=== PATIENT | female | born 1960 | race Caucasian/White ===

== ENCOUNTER 2016-08-24 01:59 | Inpatient (IN) | payer OTHER ==
[2016-08-24 04:00] LABS: Basophils # (A) 0.2 k/uL (0-0.2); Basophils % (A) 2 %; CH 32.7; CHCM 33.3; Eosinophils # (A) 0.2 k/uL (0-0.7); Eosinophils % (A) 2 %; HCT 41.2 % (34.0-46.0); HDW 2.38; HGB 13.3 gm/dL (11.4-16.0); Luc # (Auto) 0.35; Luc % (Auto) 4; Lymphocytes # (A) 2.8 k/uL (1.0-4.8); Lymphocytes % (A) 30 %; MCH 31.8 pg (25.0-35.0); MCHC 32.2 g/dL (31.0-37.0); MCV 98.8 fL (80.0-100.0); Mean Platelet Volume 6.7; Monocytes # (A) 0.7 k/uL (0-1.0); Monocytes % (A) 8 %; Neutrophils # (A) 5.2 k/uL (1.3-7.7); Neutrophils % (A) 55 %; RBC 4.17 m/uL (3.80-5.40); RDW 13.4 % (11.5-15.5); WBC 9.4 k/uL (3.8-10.6); WBC (Perox) 9.25
[2016-08-24 04:09] LABS: ALT 29 U/L (9-52); AST 27 U/L (14-36); Alcohol <10 mg/dL; Alkaline Phosphatase 91 U/L (38-126); Anion Gap 10 mmol/L; Blood Urea Nitrogen 15 mg/dL (7-17); Calcium 10.6 mg/dL (8.4-10.2); Carbon Dioxide 27 mmol/L (22-30); Chloride 102 mmol/L (98-107); Glucose 123 mg/dL (74-99); Non-African American GFR(MDRD) >60 (>60 ml/min/1.73 sqM); Potassium 4.7 mmol/L (3.5-5.1); Sodium 139 mmol/L (137-145); Total Bilirubin 0.4 mg/dL (0.2-1.3); Total Protein 7.3 g/dL (6.3-8.2)
--- NOTE | 2016-08-24 04:47 | ED ---
Psych HPI - General Chief Complaint: Psychiatric Symptoms Stated Complaint: Mental Health Time Seen by Provider: 08/24/16 02:14 Source: patient Mode of arrival: ambulatory - History of Present Illness Initial Comments: This patient is a 56-year-old woman brought to be evaluated for suspected delusional thoughts. History is both from the family and from the patient. Patient's family reports that she had just gotten out of the psychiatric unit at Hospital on 08/20. Since that time the patient has reportedly been sleeping very little, been pulling conversations with God, and also per family displaying delusional thought content. The patient is denying suicidal and homicidal ideation. She is denying depression. She is under the impression that she is here with her who needs to be seen. Complaint: other -: days(s) Associated Psychiatric Symptoms: racing thoughts, delusions History of same: Yes Quality: getting worse Improves With: none Worsens With: none Associated Symptoms: denies other symptoms - Related Data Home Medications Medication Instructions Recorded Confirmed Disulfiram 250 mg PO HS 08/24/16 08/30/16 Ibuprofen [Motrin] 800 mg PO TID 08/24/16 08/30/16 Loratadine-Pseudoeph 10-240 mg 1 tab PO DAILY 08/24/16 08/30/16 [Claritin-D 24 Hour] Thiamine [Vitamin B-1] 100 mg PO DAILY 08/24/16 08/30/16 Previous Rx's Medication Instructions Recorded Divalproex ER [Depakote ER] 1,000 mg PO HS 30 Days 09/03/16 Nicotine 14Mg/24Hr Patch [Habitrol] 1 patch TRANSDERM DAILY 14 Days 09/03/16 QUEtiapine [SEROquel] 300 mg PO HS 30 Days 09/03/16 Allergies Allergy/AdvReac Type Severity Reaction Status Date / Time No Known Allergies Allergy Verified 08/30/16 02:43 Review of Systems ROS Statement: Those systems with pertinent positive or pertinent negative responses have been documented in the HPI. ROS Other: All systems not noted in ROS Statement are negative. Constitutional: Denies: fever, weakness Eyes: Denies: vision change Respiratory: Denies: cough, dyspnea Cardiovascular: Denies: chest pain Gastrointestinal: Denies: abdominal pain, vomiting Genitourinary: Reports: frequency. Denies: dysuria Musculoskeletal: Denies: back pain Skin: Denies: rash Neurological: Denies: headache, weakness Psychiatric: Denies: depression, auditory hallucinations, homicidal thoughts, suicidal thoughts Past Medical History Additional Past Medical History / Comment(s): Former Alcohol Dependence History of Any Multi-Drug Resistant Organisms: None Reported Past Surgical History: Section Past Psychological History: No Psychological Hx Reported Smoking Status: Former smoker Past Alcohol Use History: None Reported Past Drug Use History: None Reported - Past Family History Mother Additional Family Medical History / Comment(s): Mother is alive at age 91 with no major medical problems. Father Additional Family Medical History / Comment(s): Father in his 70s from non- A non-B hepatitis Sister(s) Additional Family Medical History / Comment(s): She has one sister with no major medical problems. Patient does not have any brothers. Daughter(s) Additional Family Medical History / Comment(s): Patient has one daughter with no major medical problems. Patient does not have any sons. General Exam Limitations: no limitations General appearance: alert, in no apparent distress Head exam: Present: atraumatic, normocephalic Eye exam: Present: normal appearance. Absent: scleral icterus, conjunctival injection Neck exam: Present: normal inspection, full ROM Respiratory exam: Present: normal lung sounds bilaterally. Absent: respiratory distress, wheezes, rales, rhonchi, stridor Cardiovascular Exam: Present: regular rate, normal rhythm, normal heart sounds. Absent: systolic murmur, diastolic murmur, rubs, gallop GI/Abdominal exam: Present: soft. Absent: distended, tenderness, guarding, rebound, mass Extremities exam: Present: normal inspection, normal capillary refill. Absent: pedal edema, calf tenderness Back exam: Absent: CVA tenderness (R), CVA tenderness (L) Neurological exam: Present: alert, CN II-XII intact. Absent: motor sensory deficit Psychiatric exam: Present: manic, other (The patient does display tangential thought processes, pressured speech, and is displaying some delusional but content as well.). Absent: depressed, agitated, anxious, homicidal ideation, suicidal ideation Skin exam: Present: warm, dry, intact, normal color. Absent: rash Course Vital Signs 08/24/16 08/24/16 02:03 06:47 Temperature 98.0 F 97.8 F Pulse Rate 80 78 Respiratory 18 16 Rate Blood Pressure 180/96 136/66 O2 Sat by Pulse 98 97 Oximetry Procedures - Restraint - Face to Face Restraint Occurrence 1 Patient's Immediate Situation: Endangers others' safety, Endangers staff safety Patient's Reaction to the Intervention: Anxious, Suspicious Patient's Medical & Behavioral Condition: Alert, Agitated, Manic, Flight of ideas, Bizarre behavior Need to Continue or Terminate Restraint or Seclusion: Continue Face to Face Eval of Restraint Date: 08/24/16 Face to Face Eval of Restraint Time: 05:45 Medical Decision Making - Lab Data Result diagrams: 08/24/16 03:34 08/24/16 03:34 Lab Results 08/24/16 08/24/16 08/24/16 Range/Units 02:44 03:34 03:34 WBC 9.4 (3.8-10.6) k/uL RBC 4.17 (3.80-5.40) m/uL Hgb 13.3 (11.4-16.0) gm/dL Hct 41.2 (34.0-46.0) % MCV 98.8 (80.0-100.0) fL MCH 31.8 (25.0-35.0) pg MCHC 32.2 (31.0-37.0) g/dL RDW 13.4 (11.5-15.5) % Plt Count 422 (150-450) k/uL Neutrophils % 55 % Lymphocytes % 30 % Monocytes % 8 % Eosinophils % 2 % Basophils % 2 % Neutrophils # 5.2 (1.3-7.7) k/uL Lymphocytes # 2.8 (1.0-4.8) k/uL Monocytes # 0.7 (0-1.0) k/uL Eosinophils # 0.2 (0-0.7) k/uL Basophils # 0.2 (0-0.2) k/uL Sodium 139 (137-145) mmol/L Potassium 4.7 (3.5-5.1) mmol/L Chloride 102 (98-107) mmol/L Carbon Dioxide 27 (22-30) mmol/L Anion Gap 10 mmol/L BUN 15 (7-17) mg/dL Creatinine 0.70 (0.52-1.04) mg/dL Est GFR (MDRD) Af Amer >60 (>60 ml/min/1.73 sqM) Est GFR (MDRD) Non-Af >60 (>60 ml/min/1.73 sqM) Glucose 123 H (74-99) mg/dL Calcium 10.6 H (8.4-10.2) mg/dL Total Bilirubin 0.4 (0.2-1.3) mg/dL AST 27 (14-36) U/L ALT 29 (9-52) U/L Alkaline Phosphatase 91 (38-126) U/L Total Protein 7.3 (6.3-8.2) g/dL Albumin 4.2 (3.5-5.0) g/dL TSH 3.300 (0.465-4.680) mIU/L Urine Opiates Screen Not Detected (NotDetected) Ur Oxycodone Screen Not Detected (NotDetected) Urine Methadone Screen Not Detected (NotDetected) Ur Propoxyphene Screen Not Detected (NotDetected) Ur Barbiturates Screen Not Detected (NotDetected) U Tricyclic Antidepress Not Detected (NotDetected) Ur Phencyclidine Scrn Not Detected (NotDetected) Ur Amphetamines Screen Not Detected (NotDetected) U Methamphetamines Scrn Not Detected (NotDetected) U Benzodiazepines Scrn Not Detected (NotDetected) Urine Cocaine Screen Not Detected (NotDetected) U Marijuana (THC) Screen Not Detected (NotDetected) Serum Alcohol <10 mg/dL Disposition Clinical Impression: Psychosis Disposition: HOME SELF-CARE Condition: Stable
[2016-08-24] MEDS ORDERED: LORazepam 2 MG/ML SYRINGE IM STA (05:34)
[2016-08-24] MEDS ORDERED: HALOPERIDOL LACTATE 5 MG/ML 1 ML VIAL IM STA (05:34)
[2016-08-24] MEDS ORDERED: MAG HYDROX/AL HYDROX/SIMETH 30 ML CUP PO PRN (06:48)
[2016-08-24] MEDS ORDERED: ZIPRASIDONE 20 MG VIAL IM PRN (06:48)
[2016-08-24] MEDS: THIAMINE 100 MG TAB PO SCH (09:47)
[2016-08-24] MEDS: NICOTINE 14MG/24HR PATCH TRANSDERM SCH (09:47)
[2016-08-24] MEDS ORDERED: LORazepam 2 MG/ML SYRINGE IM PRN (12:25)
--- NOTE | 2016-08-24 15:35 | P.CONS ---
History of Present Illness - Reason for Consult Consult date: 08/24/16 Medical management - History of Present Illness This is a 56-year-old female. Her primary care physician is Dr. Ellis in [place]. Patient is seen in her room and she is very groggy after receiving Haldol and Ativan. Patient relates that the place or sent to get her for referral. Patient denies having any hallucinations. She states she was recently at the psychiatric unit at [facility] for 6 days and was discharged on Tuesday. It is unclear if she has been taking her medications. She denies any suicidal ideation. She states her has been under a lot of stress and pushing her buttons. Patient has been admitted to the mental health unit. TSH 3.3. Urine drug screen was negative. Review of Systems All systems: negative Constitutional: Denies chills, Denies fever Eyes: denies blurred vision, denies pain Ears, nose, mouth and throat: Denies headache, Denies sore throat Cardiovascular: Denies chest pain, Denies shortness of breath Respiratory: Denies cough Gastrointestinal: Denies abdominal pain, Denies diarrhea, Denies nausea, Denies vomiting Genitourinary: Denies dysuria, Denies hematuria Musculoskeletal: Denies myalgias Integumentary: Denies pruritus, Denies rash Neurological: Denies numbness, Denies weakness Psychiatric: Reports hallucinations, Denies anxiety, Denies depression, Denies suicidal ideation Endocrine: Denies fatigue, Denies weight change Past Medical History Additional Past Medical History / Comment(s): Former Alcohol Dependence History of Any Multi-Drug Resistant Organisms: None Reported Past Surgical History: Section Past Psychological History: No Psychological Hx Reported Smoking Status: Current every day smoker Past Alcohol Use History: None Reported Additional Past Alcohol Use History / Comment(s): She apparently has history of alcohol abuse but has been sober for 14 months. She lives at home with her . Past Drug Use History: None Reported - Past Family History Mother Additional Family Medical History / Comment(s): Mother is alive at age 91 with no major medical problems. Father Additional Family Medical History / Comment(s): Father in his 70s from non- A non-B hepatitis Sister(s) Additional Family Medical History / Comment(s): She has one sister with no major medical problems. Patient does not have any brothers. Daughter(s) Additional Family Medical History / Comment(s): Patient has one daughter with no major medical problems. Patient does not have any sons. Medications and Allergies Home Medications Medication Instructions Recorded Confirmed Type Disulfiram 250 mg PO HS 08/24/16 08/24/16 History Ibuprofen [Motrin] 800 mg PO TID 08/24/16 08/24/16 History LORazepam [Lorazepam] 1 mg PO BID PRN 08/24/16 08/24/16 History Loratadine-Pseudoeph 10-240 mg 1 tab PO DAILY 08/24/16 08/24/16 History [Claritin-D 24 Hr] Nitrofurantoin Monohyd/M-Cryst 100 mg PO Q12HR 08/24/16 08/24/16 History [Macrobid] Thiamine [Vitamin B-1] 100 mg PO DAILY 08/24/16 08/24/16 History Venlafaxine HCl [Venlafaxine HCl] 75 mg PO BID 08/24/16 08/24/16 History Allergies Allergy/AdvReac Type Severity Reaction Status Date / Time No Known Allergies Allergy Verified 08/24/16 08:52 Physical Exam Vitals: Vital Signs Temp Pulse Pulse Resp BP BP Pulse Ox 08/24/16 08:21 98.1 F 87 20 180/86 08/24/16 06:47 97.8 F 78 16 136/66 97 Gen: This is a 86-year-old female. She is cooperative. She appears to be in no acute distress. She is quite groggy but awakens easily to verbal stimuli. She does have difficulty focusing and staying on subject. HEENT: Head is atraumatic, normocephalic. Pupils equal, round. Sclerae is anicteric. NECK: Supple. No JVD. No lymphadenopathy. No thyromegaly. LUNGS: Clear to auscultation. No wheezes or rhonchi. No intercostal retractions. HEART: Regular rate and rhythm. No murmur. ABDOMEN: Soft. Bowel sounds are present. No masses. No tenderness. EXTREMITIES: No pedal edema. No calf tenderness. NEUROLOGICAL: Patient is awake, alert and oriented x3. Cranial nerves 2 through 12 are grossly intact. Results CBC & Chem 7: 08/24/16 03:34 08/24/16 03:34 Assessment and Plan Plan: 1. Acute psychosis with recent admission to [facility]. Patient admitted to the mental health unit. Continue current plan of care. 2. Recent diagnosis of urinary tract infection. Continue Macrobid. 3. Tobacco use and dependence. Continue nicotine patch. 4. History of alcohol abuse. Continue Ativan, vitamin B. Impression and plan of care have been directed as dictated by the signing physician. Loren Abarca nurse practitioner acting as scribe for signing physician. Time with Patient: Greater than 30
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
[2016-08-24] MEDS: DISULFIRAM 250 MG TAB PO SCH (22:19)
[2016-08-24] MEDS: NITROFURANTOIN MONOHYD/M-CRYST 100 MG CAP PO SCH (22:19)
[2016-08-24] MEDS: QUEtiapine 100 MG TAB PO SCH (22:19)
[2016-08-25] MEDS: NITROFURANTOIN MONOHYD/M-CRYST 100 MG CAP PO SCH ×2 (08:12→22:49)
[2016-08-25] MEDS: THIAMINE 100 MG TAB PO SCH (08:13)
[2016-08-25] MEDS: NICOTINE 14MG/24HR PATCH TRANSDERM SCH (08:14)
--- NOTE | 2016-08-25 15:46 | P.PN ---
Progress Note - Text SUBJECTIVE: I reviewed the medical record, interviewed Noemi and discussed her treatment and treatment plan during team meeting. She requested to be discharged. She stated that she has plans for the hol and does not wish to be in the hospital. She appeared to understand my explanation that she presented to the hospital involuntary and we are waiting her probate hearing. In the afternoon she approached me to inform me that she had deferred. I attempted to engage in discussion of treatment for her mood disorder. She declined my recommendation for lithium or Depakote. She also discoloring recommendation for second-generation antipsychotics except for "a little bit" of Seroquel. I told her that a "little bit" of Seroquel is not adequate treated treatment for her condition. OBJECTIVE: She presented as a casually groomed 56-year-old female who was pleasant on approach. She made eye contact and appeared to attend to interview. She had a distressed facial expression. She was restless but showed no abnormal involuntary movements. She was hyperverbal. Her affect was elevated and appropriate. She denied suicidal ideation or wishes. She denied feelings of hopelessness or helplessness. She did not express phobias, ideas reference or paranoid ideation. She ruminated about hospitalization and her plans at home. Her thinking was concrete she demonstrated flight of ideas, tangentiality and circumstantiality. She denied hallucinations and did not appear to be responding to internal stimuli. ASSESSMENT: She continued to show signs and symptoms of adriane. She is resistant to treatment with mood stabilizers. PLAN: Continue with involuntary hospitalization. If she had deferred and will not take a therapeutic dose of a mood stabilizer then we should proceed with involuntary hospitalization. Begin a mood stabilizer such as lithium, Depakote or second-generation antipsychotic. She may require treatment with a long acting injectable second-generation antipsychotic. Encourage participation in therapeutic groups and activities. Evaluate clinical status and response to treatment on a daily basis.
[2016-08-25] MEDS: DISULFIRAM 250 MG TAB PO SCH (22:49)
[2016-08-25] MEDS: QUEtiapine 100 MG TAB PO SCH (22:49)
[2016-08-26] MEDS: THIAMINE 100 MG TAB PO SCH (08:47)
[2016-08-26] MEDS: NITROFURANTOIN MONOHYD/M-CRYST 100 MG CAP PO SCH ×2 (08:47→22:18)
[2016-08-26] MEDS: NICOTINE 14MG/24HR PATCH TRANSDERM SCH (08:47)
--- NOTE | 2016-08-26 12:47 | P.PN ---
Progress Note - Text SUBJECTIVE: I reviewed the medical record, interviewed Noemi and discussed her treatment and treatment plan during team meeting. She insisted that we meet early this morning. She stated that she has made all her arrangements necessary for her discharge including scheduling an appointment at [facility] today at 3 PM. She deferred her involuntary hearing yesterday. She refused treatment with a mood stabilizer such as lithium or Depakote. She refused to consider a second generation antipsychotic other than a "low dose" of Seroquel. She maintained that she "will" leave the hospital today. When I told her she would not leave the hospital she demanded to be assigned to another psychiatrist. She accused me of violating her rights and not cooperating with her. OBJECTIVE: She presented as a casually groomed 56-year-old female who was irritable and demanding. She made eye contact and appeared to attend to interview. She became increasingly irritable when I declined her request to be discharged today. She left my office and returned with a mapp2link folder filled with various items including [employer] well cards, magazines, probate papers and group activity material. She will on the mapp2link folder that I had refused to request to be discharged. She left my office a third time leaving behind much of her material from the folder and stated that she will talk to whomever she needs to be assigned another psychiatrist because we did not "click". She was restless but showed no abnormal involuntary movements. She was hyperverbal and had pressured speech. Her affect was irritable. She denied suicidal ideation or wishes. She denied feelings of hopelessness or helplessness. She did not express phobias, ideas reference or paranoid ideation. Her thinking was concrete she demonstrated flight of ideas, tangentiality and circumstantiality. She denied hallucinations and did not appear to be responding to internal stimuli. During group therapy this morning she was attention seeking, intrusive, disorganized, restless and hyperverbal. ASSESSMENT: She continued to show signs and symptoms of adriane. She is resistant to treatment with mood stabilizers. She is not cooperating with recommended psychiatric treatment. PLAN: Continue hospitalization due to the severity of the panic symptoms. Increase Seroquel to 200 mg at bedtime tonight then 300 mg at bedtime tomorrow night. If she will not take the increased dose of Seroquel or an alternate effective mood stabilizer then we will request a demand for hearing. I provided her with patient information about lithium, Depakote, Abilify and Invega. Encourage participation in therapeutic groups and activities. Evaluate clinical status and response to treatment on a daily basis.
[2016-08-26] MEDS ORDERED: QUEtiapine 200 MG TAB PO SCH (21:00)
[2016-08-26] MEDS: DISULFIRAM 250 MG TAB PO SCH (22:18)
[2016-08-26] MEDS: ACETAMINOPHEN TAB 325 MG TAB PO PRN (22:23)
[2016-08-27] MEDS: NICOTINE 14MG/24HR PATCH TRANSDERM SCH (09:04)
[2016-08-27] MEDS: THIAMINE 100 MG TAB PO SCH (09:04)
--- NOTE | 2016-08-27 12:31 | P.PN ---
Progress Note - Text SUBJECTIVE: I reviewed the medical record, interviewed Noemi and discussed her treatment and treatment plan during team meeting. She complained that the current dose of Seroquel (200 mg) is "too strong" and she wishes to return to the lower dose. She suggested treatment with Effexor or Wellbutrin. I explained that our recommendation is to request a demand for hearing because she has not complied with recommended treatment. I answered her questions about the demand. OBJECTIVE: She presented as a casually groomed 56-year-old female who was pleasant on approach. She made eye contact and appeared to attend to interview. She was hyperverbal and her speech was pressured. Her affect was labile. She denied suicidal ideation or wishes. She denied feelings of hopelessness or helplessness. She did not express phobias, ideas reference or paranoid ideation. Her thinking was concrete she demonstrated flight of ideas , tangentiality and circumstantiality. She denied hallucinations and did not appear to be responding to internal stimuli. The therapist described her as disorganized, hyperverbal, restless and poorly focused during group therapy. ASSESSMENT: She continued to show signs and symptoms of adriane. She is resistant to treatment with mood stabilizers. She is not cooperating with recommended psychiatric treatment. PLAN: Continue hospitalization due to the severity of the panic symptoms. Increase Seroquel to 300 mg at bedtime. Proceed with demand for hearing. Antidepressant medications are not appropriate. Encourage participation in therapeutic groups and activities. Evaluate clinical status and response to treatment on a daily basis.
[2016-08-27] MEDS: ACETAMINOPHEN TAB 325 MG TAB PO PRN (15:32)
[2016-08-27] MEDS: QUEtiapine 100 MG TAB PO SCH (22:28)
[2016-08-27] MEDS: DISULFIRAM 250 MG TAB PO SCH (22:28)
[2016-08-28] MEDS: NICOTINE 14MG/24HR PATCH TRANSDERM SCH (09:05)
[2016-08-28] MEDS: THIAMINE 100 MG TAB PO SCH (09:05)
[2016-08-28] MEDS: DIVALPROEX ER 250 MG TAB.ER.24H PO SCH ×2 (13:40→22:18)
--- NOTE | 2016-08-28 15:27 | P.PN ---
Progress Note - Text Interval history: Patient seen in cross coverage today for Dr. Ramos. She is persistent on wanting to be able to be discharged this weekend. She is currently on Seroquel. Per previous progress notes mood stabilizers also been recommended. After much discussion today patient is agreeable to start Depakote ER. Mental status exam: She is alert and cooperative with the interview. Her speech is fluent, rapid and pressured. Her thought processes have some disorganization and show circumstantiality and tangentiality. She does not verbalize any thoughts of harm to self or others. She does not show any significant level of agitation. There are elements of grandiosity. Plan: We'll initiate Depakote ER to assist with mood stabilization and 250 mg twice daily. Patient is agreeable to initiate mood stabilizer Depakote. We'll maintain Seroquel as current. We'll continue to monitor her mood and for manic symptoms. We'll continue to cover this patient for Dr. Ramos through the weekend.
[2016-08-28] MEDS: DISULFIRAM 250 MG TAB PO SCH (22:14)
[2016-08-28] MEDS: MAGNESIUM HYDROXIDE 2,400 MG/10 ML CUP PO PRN (22:16)
[2016-08-28] MEDS: QUEtiapine 100 MG TAB PO SCH (22:19)
[2016-08-29] MEDS: NICOTINE 14MG/24HR PATCH TRANSDERM SCH (09:17)
[2016-08-29] MEDS: THIAMINE 100 MG TAB PO SCH (09:18)
[2016-08-29] MEDS: DIVALPROEX ER 250 MG TAB.ER.24H PO SCH ×3 (09:18→20:56)
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
[2016-08-29] MEDS: DISULFIRAM 250 MG TAB PO SCH ×2 (20:55→20:56)
[2016-08-29] MEDS: QUEtiapine 100 MG TAB PO SCH (20:56)
[2016-08-29] MEDS: ACETAMINOPHEN TAB 325 MG TAB PO PRN (20:59)
[2016-08-29] MEDS: MAGNESIUM HYDROXIDE 2,400 MG/10 ML CUP PO PRN (22:31)
[2016-08-30] MEDS: LORazepam 1 MG TAB PO PRN ×2 (02:18→16:12)
[2016-08-30] MEDS: THIAMINE 100 MG TAB PO SCH (08:47)
[2016-08-30] MEDS: NICOTINE 14MG/24HR PATCH TRANSDERM SCH (08:47)
--- NOTE | 2016-08-30 14:56 | P.PN ---
Progress Note - Text SUBJECTIVE: I reviewed the medical record, interviewed Noemi and discussed her treatment and treatment plan during team meeting. She was irritable and argumentative. She demanded to be discharged. She would not accept my explanation that she will be in the hospital at least until her probate hearing this Tuesday. She demanded that I called the probate Court and have the hearing rescheduled for this afternoon or no later than tomorrow. When I would not agree to discharge or contact the courts on her behalf she became rude and critical. Over the weekend she agreed to start Depakote and Dr. Agustin prescribed 250 mg twice a day. She took 2 doses on Tuesday refused medication on Tuesday but took the morning dose today. OBJECTIVE: She presented as a casually groomed 56-year-old female who was pleasant on approach. She made eye contact and appeared to attend to interview. She was hyperverbal and her speech was pressured. Her affect was labile. She denied suicidal ideation or wishes. She denied feelings of hopelessness or helplessness. She did not express phobias, ideas reference or paranoid ideation. Her thinking was concrete she demonstrated flight of ideas , tangentiality and circumstantiality. She denied hallucinations and did not appear to be responding to internal stimuli. During the meeting with her on 08/29/2016 she had "difficulty staying on task, presenting with flight of ideas and tangential thought processes. Patient's speech was pressured and rapid. ..." ASSESSMENT: She continued to show signs and symptoms of adriane. She is resistant to treatment with mood stabilizers. She is not cooperating with recommended psychiatric treatment. PLAN: Continue hospitalization due to the severity of the manic symptoms. Cont. Seroquel to 300 mg at bedtime. Increase Depakote ER to 500 mg twice a day probate hearing is scheduled for 09/03/2016. Encourage participation in therapeutic groups and activities. Evaluate clinical status and response to treatment on a daily basis.
[2016-08-30] MEDS: DIVALPROEX ER 500 MG TAB.ER.24H PO SCH (20:59)
[2016-08-30] MEDS: QUEtiapine 100 MG TAB PO SCH (20:59)
[2016-08-31] MEDS: NICOTINE 14MG/24HR PATCH TRANSDERM SCH (09:31)
[2016-08-31] MEDS: DIVALPROEX ER 500 MG TAB.ER.24H PO SCH ×2 (09:31→21:52)
[2016-08-31] MEDS: THIAMINE 100 MG TAB PO SCH (09:31)
--- NOTE | 2016-08-31 13:46 | P.PN ---
Progress Note - Text SUBJECTIVE: I reviewed the medical record, interviewed Noemi and discussed her treatment and treatment plan during team meeting. A social work faculty member was present during the interview. Noemi perseverated on discharge. She alleged that the physician told her she may be discharged after she had her blood drawn this morning. She became increasingly angry and critical of me when I explained that she will remain in the hospital at least until her probate hearing on Tuesday. She diminished no why I am "doing this" to her. OBJECTIVE: She presented as a casually groomed 56-year-old female who was pleasant on approach. She made eye contact and appeared to attend to interview. She was hyperverbal and her speech was pressured. Her affect was labile with periods of euphoria and irritability. She denied suicidal ideation or wishes. She denied feelings of hopelessness or helplessness. She did not express phobias, ideas reference or paranoid ideation. Her thinking was concrete she demonstrated flight of ideas, tangentiality and circumstantiality. She denied hallucinations and did not appear to be responding to internal stimuli. Serum valproic acid level was subtherapeutic at 31.2 ASSESSMENT: She continued to show signs and symptoms of adriane. She is resistant to treatment with mood stabilizers. She is not cooperating with recommended psychiatric treatment. PLAN: Continue hospitalization due to the severity of the manic symptoms. Cont. Seroquel to 300 mg at bedtime. Continue Depakote ER to 500 mg twice a day. Probate hearing is scheduled for 09/03/2016. Encourage participation in therapeutic groups and activities. Evaluate clinical status and response to treatment on a daily basis.
[2016-08-31] MEDS: DISULFIRAM 250 MG TAB PO SCH (21:52)
[2016-08-31] MEDS: QUEtiapine 100 MG TAB PO SCH (21:52)
[2016-09-01] MEDS: THIAMINE 100 MG TAB PO SCH (09:30)
[2016-09-01] MEDS: DIVALPROEX ER 500 MG TAB.ER.24H PO SCH ×2 (09:30→21:43)
[2016-09-01] MEDS: NICOTINE 14MG/24HR PATCH TRANSDERM SCH (09:30)
--- NOTE | 2016-09-01 13:34 | P.PN ---
Progress Note - Text SUBJECTIVE: I reviewed the medical record, interviewed Noemi and discussed her treatment and treatment plan during team meeting. A licensed master social worker was present during the interview. Noemi complained of morning sedation with the increased dose of Depakote. She again attempted to negotiate discharge and "avoid" the probate hearing. She is confident that her case will be dismissed by the probate court. OBJECTIVE: She presented as a casually groomed 56-year-old female who was pleasant on approach. She made eye contact and appeared to attend to interview. She was hyperverbal and her speech was pressured. Her affect was was elevated but she was not irritable, critical or sarcastic. She denied suicidal ideation or wishes. She denied feelings of hopelessness or helplessness. She did not express phobias, ideas reference or paranoid ideation. Her thinking was concrete she demonstrated flight of ideas, tangentiality and circumstantiality. She denied hallucinations and did not appear to be responding to internal stimuli. ASSESSMENT: She continued to show signs and symptoms of adriane or hypomania. Overall she appears moderately mentally of moderately improved from admission. PLAN: Continue hospitalization due to the severity of the manic symptoms. Cont. Seroquel to 300 mg at bedtime. Change Depakote ER to 1000 mg HS and obtain a serum valproic acid level in 2-3 days.. Probate hearing is scheduled for 09/03/2016. Encourage participation in therapeutic groups and activities. Evaluate clinical status and response to treatment on a daily basis.
[2016-09-01] MEDS: ACETAMINOPHEN TAB 325 MG TAB PO PRN (16:20)
[2016-09-01] MEDS: DISULFIRAM 250 MG TAB PO SCH (21:42)
[2016-09-01] MEDS: QUEtiapine 100 MG TAB PO SCH (21:43)
[2016-09-01] MEDS: MAGNESIUM HYDROXIDE 2,400 MG/10 ML CUP PO PRN (21:45)
[2016-09-02] MEDS: THIAMINE 100 MG TAB PO SCH (08:59)
[2016-09-02] MEDS: NICOTINE 14MG/24HR PATCH TRANSDERM SCH (08:59)
[2016-09-02 11:39] LABS: Appearance,Urine Clear (Clear); Bilirubin,Urine Negative (Negative); Glucose,Urine (UA) Negative (Negative); Ketones,Urine Negative (Negative); Leukocyte Esterase,Urine Negative (Negative); Nitrite,Urine Negative (Negative); Protein,Urine Negative (Negative); Specific Gravity,Urine 1.007 (1.001-1.035); UA Billing (MACRO vs. MICRO) CHEM; Urobilinogen,Urine <2.0 mg/dL (<2.0)
--- NOTE | 2016-09-02 14:56 | P.PN ---
Progress Note - Text SUBJECTIVE: I reviewed the medical record, interviewed Noemi and discussed her treatment and treatment plan during team meeting. She was anxious about the probate hearing tomorrow. She wondered if she would have an opportunity to explain her behavior particularly as her agitation and need for restraint in the emergency room. She complained of slight sedation this morning but denied other side effects. She would like to be discharged tomorrow after the court hearing. I explained that we need to obtain a serum valproic acid level and repeat liver function tests before we could discharge her to outpatient care. She talked quite a bit about her history of alcohol use and problems as a result of her alcohol use. OBJECTIVE: She presented as a casually groomed 56-year-old female who was pleasant on approach. She made eye contact and appeared to attend to interview. She had increase in rate of her speech but her speech was not pressured. Her affect was was bright but not elevated. She was not irritable, critical or sarcastic. She denied suicidal ideation or wishes. She denied feelings of hopelessness or helplessness. She did not express phobias, ideas reference or paranoid ideation. Her thinking was abstract and she did not demonstrated flight of ideas, tangentiality and circumstantiality. She denied hallucinations and did not appear to be responding to internal stimuli. ASSESSMENT: She is much less hypomanic today.. Overall she appears moderately mentally of much improved from admission. PLAN: Continue hospitalization due to the severity of the manic symptoms. Cont. Seroquel to 300 mg at bedtime. Change Depakote ER to 1000 mg HS and obtain a serum valproic acid level on 09/05/2016. Probate hearing scheduled for 09/03/2016. Encourage participation in therapeutic groups and activities. Evaluate clinical status and response to treatment on a daily basis.
[2016-09-02] MEDS: DIVALPROEX ER 500 MG TAB.ER.24H PO SCH (21:48)
[2016-09-02] MEDS: QUEtiapine 100 MG TAB PO SCH (21:48)
[2016-09-02] MEDS: DISULFIRAM 250 MG TAB PO SCH (21:48)
[2016-09-03 07:03] VITALS: BP 104/61; PULSE 90; RESP 16; TEMP 97.9
[2016-09-03] MEDS: THIAMINE 100 MG TAB PO SCH (08:52)
[2016-09-03] MEDS: NICOTINE 14MG/24HR PATCH TRANSDERM SCH (08:52)
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
== END 2016-09-03 13:37 | disposition home or self-care (01) | DRG 885 ==
LOC: EC 01:59 → 3MHU 06:35
PROVIDERS: ADMIT Psychiatry & Neurology Psychiatry; ATTEND Psychiatry & Neurology Psychiatry
DX: F31.9 Bipolar disorder, unspecified (principal); F10.21 Alcohol dependence, in remission; F17.200 Nicotine dependence, unspecified, uncomplicated; Z79.899 Other long term (current) drug therapy; Z91.410 Personal history of adult physical and sexual abuse
CPT/HCPCS: 36415; 80053; 80164; 80306; 80320; 81003; 82075; 84443; 85025; 96372; 99285

== ENCOUNTER 2018-03-10 21:01 | Emergency (ER) | payer OTHER ==
[2018-03-10] MEDS ORDERED: predniSONE 20 MG TAB PO STA (22:22)
[2018-03-10] MEDS ORDERED: IPRATROPIUM-ALBUTEROL 3 ML NEB INHALATION STA (22:22)
--- NOTE | 2018-03-10 22:50 | ED ---
General Adult HPI - General Chief complaint: Upper Respiratory Infection Stated complaint: Pneumonia Time Seen by Provider: 03/10/18 21:54 Source: patient Mode of arrival: ambulatory Limitations: no limitations - History of Present Illness Initial comments: Patient is a 57-year-old female presents with a chief complaint of upper respiratory infection and shortness of breath. The patient states that she visited her sister in [place] 9 days ago and since she got off the plane she has been sick with an upper respiratory infection. Three-view of the patient states that she called her primary care doctor as she was afraid she was getting pneumonia. Patient states that she has been hospitalized for pneumonia before and that scares her. Patient states that she also has a history of alcoholism and was sober for many years but started drinking again 4 days ago. Patient cannot identify any inciting incidences other than the plane ride to her upper respiratory and chest symptoms. There are no aggravating or alleviating factors. Timing is been constant. - Related Data Home Medications Medication Instructions Recorded Confirmed Disulfiram 250 mg PO HS 08/24/16 03/10/18 Artificial Tears-Hypromellose 1 drop BOTH EYES DAILY 03/10/18 03/10/18 [Artificial Tear Drops] Ascorbic Acid [Vitamin C] 3,000 mg PO DAILY 03/10/18 03/10/18 Aspirin [Adult Low Dose Aspirin EC] 81 mg PO DAILY 03/10/18 03/10/18 Cod Liver Oil 1 cap PO DAILY 03/10/18 03/10/18 LORazepam [Ativan] 1 mg PO BID 03/10/18 03/10/18 Melatonin 10 mg PO HS 03/10/18 03/10/18 Multivitamin/Iron/Folic Acid 1 tab PO DAILY 03/10/18 03/10/18 [Centrum Complete Multivit Tab] Hern[place]-3/Dha/Epa/Fish Oil [Fish Oil 1 cap PO DAILY 03/10/18 03/10/18 500 mg Softgel] Previous Rx's Medication Instructions Recorded Divalproex ER [Depakote ER] 1,000 mg PO HS 30 Days tab.er.24h 09/03/16 Albuterol Inhaler [Ventolin Hfa 1 - 2 puff INHALATION Q4H #1 03/11/18 Inhaler] inhaler Doxycycline Hyclate 100 mg PO BID #9 tab 03/11/18 predniSONE 60 mg PO DAILY 4 Days #12 tab 03/11/18 Allergies Allergy/AdvReac Type Severity Reaction Status Date / Time No Known Allergies Allergy Verified 03/10/18 22:27 Review of Systems ROS Statement: Those systems with pertinent positive or pertinent negative responses have been documented in the HPI. ROS Other: All systems not noted in ROS Statement are negative. Constitutional: Reports: chills Respiratory: Reports: cough, dyspnea Past Medical History Additional Past Medical History / Comment(s): Former Alcohol Dependence History of Any Multi-Drug Resistant Organisms: None Reported Past Surgical History: Section Past Psychological History: Bipolar Smoking Status: Current every day smoker Past Alcohol Use History: Daily Past Drug Use History: None Reported - Past Family History Mother Additional Family Medical History / Comment(s): Mother is alive at age 91 with no major medical problems. Father Additional Family Medical History / Comment(s): Father in his 70s from non- A non-B hepatitis Sister(s) Additional Family Medical History / Comment(s): She has one sister with no major medical problems. Patient does not have any brothers. Daughter(s) Additional Family Medical History / Comment(s): Patient has one daughter with no major medical problems. Patient does not have any sons. General Exam Limitations: no limitations General appearance: alert, in no apparent distress Head exam: Present: atraumatic Eye exam: Present: normal appearance ENT exam: Present: normal exam, mucous membranes moist Neck exam: Present: normal inspection Respiratory exam: Present: normal lung sounds bilaterally. Absent: respiratory distress, wheezes Cardiovascular Exam: Present: regular rate, normal rhythm GI/Abdominal exam: Present: soft. Absent: distended, tenderness Rectal exam: Present: deferred Extremities exam: Present: normal inspection Back exam: Present: normal inspection Neurological exam: Present: alert, oriented X3, CN II-XII intact Psychiatric exam: Present: normal affect, normal mood Skin exam: Present: warm, dry, intact Course Vital Signs 03/10/18 03/10/18 03/11/18 21:08 23:28 00:13 Temperature 98.1 F Pulse Rate 99 92 92 Respiratory 18 Rate Blood Pressure 133/66 O2 Sat by Pulse 96 Oximetry Medical Decision Making - Medical Decision Making Patient presents with chief complaint of cough and shortness of breath. On initial evaluation, vital signs are stable, patient is in no acute distress. Patient to be evaluated with basic labs including troponin, and chest x-ray. Patient given breathing treatments and steroids. EKG performed at 2258 shows normal sinus rhythm with a rate of 84 bpm. EKG is otherwise unremarkable. 1222 lab evaluation of this patient is unremarkable. EtOH is 197. given short duration of drinking, it was recommended that the patient restart her antabuse tomorrow morning and continue going to AA meetings and finding other support. her states he will be with her to ensure that she restarts her medication. chest xray favors atalectasis over pneumonia, however patient will be treated as bronchitis. breathing improved after breathing treatments, lung exam now moving more air. patient instructed to follow up with pcp in 1-2 days , return to the ED if sx worsen or change. - Lab Data Result diagrams: 03/10/18 22:50 03/10/18 22:50 Lab Results 03/10/18 03/10/18 03/10/18 Range/Units 22:50 22:50 22:50 WBC 8.0 (3.8-10.6) k/uL RBC 4.42 (3.80-5.40) m/uL Hgb 14.2 (11.4-16.0) gm/dL Hct 42.1 (34.0-46.0) % MCV 95.4 (80.0-100.0) fL MCH 32.1 (25.0-35.0) pg MCHC 33.6 (31.0-37.0) g/dL RDW 13.3 (11.5-15.5) % Plt Count 398 (150-450) k/uL Neutrophils % 58 % Lymphocytes % 30 % Monocytes % 7 % Eosinophils % 1 % Basophils % 1 % Neutrophils # 4.7 (1.3-7.7) k/uL Lymphocytes # 2.4 (1.0-4.8) k/uL Monocytes # 0.6 (0-1.0) k/uL Eosinophils # 0.1 (0-0.7) k/uL Basophils # 0.1 (0-0.2) k/uL Sodium 138 (137-145) mmol/L Potassium 4.2 (3.5-5.1) mmol/L Chloride 105 (98-107) mmol/L Carbon Dioxide 26 (22-30) mmol/L Anion Gap 7 mmol/L BUN 6 L (7-17) mg/dL Creatinine 0.66 (0.52-1.04) mg/dL Est GFR (CKD-EPI)AfAm >90 (>60 ml/min/1.73 sqM) Est GFR (CKD-EPI)NonAf >90 (>60 ml/min/1.73 sqM) Glucose 105 H (74-99) mg/dL Calcium 9.2 (8.4-10.2) mg/dL Magnesium 2.1 (1.6-2.3) mg/dL Troponin I (0.000-0.034) ng/mL NT-Pro-B Natriuret Pep 141 pg/mL Serum Alcohol 197 mg/dL 03/10/18 Range/Units 22:50 WBC (3.8-10.6) k/uL RBC (3.80-5.40) m/uL Hgb (11.4-16.0) gm/dL Hct (34.0-46.0) % MCV (80.0-100.0) fL MCH (25.0-35.0) pg MCHC (31.0-37.0) g/dL RDW (11.5-15.5) % Plt Count (150-450) k/uL Neutrophils % % Lymphocytes % % Monocytes % % Eosinophils % % Basophils % % Neutrophils # (1.3-7.7) k/uL Lymphocytes # (1.0-4.8) k/uL Monocytes # (0-1.0) k/uL Eosinophils # (0-0.7) k/uL Basophils # (0-0.2) k/uL Sodium (137-145) mmol/L Potassium (3.5-5.1) mmol/L Chloride (98-107) mmol/L Carbon Dioxide (22-30) mmol/L Anion Gap mmol/L BUN (7-17) mg/dL Creatinine (0.52-1.04) mg/dL Est GFR (CKD-EPI)AfAm (>60 ml/min/1.73 sqM) Est GFR (CKD-EPI)NonAf (>60 ml/min/1.73 sqM) Glucose (74-99) mg/dL Calcium (8.4-10.2) mg/dL Magnesium (1.6-2.3) mg/dL Troponin I <0.012 (0.000-0.034) ng/mL NT-Pro-B Natriuret Pep pg/mL Serum Alcohol mg/dL Disposition Clinical Impression: Upper respiratory infection, Bronchitis Disposition: HOME SELF-CARE Instructions: Upper Respiratory Infection (ED) Prescriptions: Albuterol Inhaler [Ventolin Hfa Inhaler] 1 - 2 puff INHALATION Q4H #1 inhaler Doxycycline Hyclate 100 mg PO BID #9 tab predniSONE 60 mg PO DAILY 4 Days #12 tab Is patient prescribed a controlled substance at d/c from ED?: No Referrals: Carlos Eduardo Ellis MD [Primary Care Provider] - 1-2 days
[2018-03-10 23:09] LABS: Basophils # (A) 0.1 k/uL (0-0.2); Basophils % (A) 1 %; Eosinophils # (A) 0.1 k/uL (0-0.7); Eosinophils % (A) 1 %; HCT 42.1 % (34.0-46.0); HGB 14.2 gm/dL (11.4-16.0); Lymphocytes # (A) 2.4 k/uL (1.0-4.8); Lymphocytes % (A) 30 %; MCH 32.1 pg (25.0-35.0); MCHC 33.6 g/dL (31.0-37.0); MCV 95.4 fL (80.0-100.0); Mean Platelet Volume 6.2; Monocytes # (A) 0.6 k/uL (0-1.0); Monocytes % (A) 7 %; Neutrophils # (A) 4.7 k/uL (1.3-7.7); Neutrophils % (A) 58 %; Platelet Count 398 k/uL (150-450); RBC 4.42 m/uL (3.80-5.40); RDW 13.3 % (11.5-15.5)
--- NOTE | 2018-03-10 23:17 | XR ---
EXAMINATION TYPE: XR chest 2V DATE OF EXAM: 03/10/2018 COMPARISON: NONE HISTORY: Chest pain TECHNIQUE: Frontal and lateral views of the chest are obtained. FINDINGS: Heart is normal. There is some minimal pleural reaction at the lateral left lung base. The re are old right-sided healed rib fractures. There are no hilar masses. Mediastinum is normal. Bony t horax is intact. IMPRESSION: Pleural reaction and subsegmental atelectasis at the lateral left lung base. Normal hear t. There is probably some COPD.
[2018-03-10 23:25] LABS: Anion Gap 7 mmol/L; Blood Urea Nitrogen 6 mg/dL (7-17); Calcium 9.2 mg/dL (8.4-10.2); Carbon Dioxide 26 mmol/L (22-30); Chloride 105 mmol/L (98-107); Glucose 105 mg/dL (74-99); Magnesium 2.1 mg/dL (1.6-2.3); Potassium 4.2 mmol/L (3.5-5.1); Sodium 138 mmol/L (137-145)
[2018-03-10 23:42] LABS: Alcohol 197 mg/dL
[2018-03-11] MEDS ORDERED: DOXYCYCLINE 100 MG CAP PO STA (00:18)
[2018-03-11 00:38] VITALS: BP 123/71; PULSE 98; RESP 16; TEMP 97.9
== END 2018-03-11 00:50 | disposition home or self-care (01) ==
LOC: EC 21:01
DX: J40 Bronchitis, not specified as acute or chronic (principal); J06.9 Acute upper respiratory infection, unspecified; F10.21 Alcohol dependence, in remission; F17.200 Nicotine dependence, unspecified, uncomplicated; Z79.82 Long term (current) use of aspirin; Z79.899 Other long term (current) drug therapy; Y90.6 Blood alcohol level of 120-199 mg/100 ml
CPT/HCPCS: 36415; 94640; 93005; 83880; 80048; 83735; 84484; 85025; 80320; 71046; 99285; J7512

== ENCOUNTER 2018-10-07 10:10 | Emergency (ER) | payer OTHER ==
[2018-10-07 10:24] VITALS: RESP 18; TEMP 98.3
[2018-10-07] MEDS ORDERED: SODIUM CHLORIDE 0.9% 1,000 ML IV STA (10:25)
[2018-10-07] MEDS ORDERED: SODIUM CHLORIDE 0.9% 1,000 ML with MVI, ADULT NO.4 WITH VIT K 10 ML, THIAMINE 100 MG, F... IV ONE ×4 (10:26)
--- NOTE | 2018-10-07 10:31 | ED ---
General Adult HPI - General Chief complaint: Alcohol Stated complaint: ETOH Time Seen by Provider: 10/07/18 10:12 Source: patient, RN notes reviewed Mode of arrival: EMS Limitations: altered mental status - History of Present Illness Initial comments: Patient is a pleasant 58-year-old female presenting to the emergency department with alcohol intoxication. Patient states she called the ambulance because she was worried that she drink 2 much. Patient states she does not normally drink a lot. Patient states she drank approximately 1/5 of alcohol over the past 2 days. Patient feels somewhat depressed however denies any suicidal ideation. Patient has no physical complaints. - Related Data Home Medications Medication Instructions Recorded Confirmed LORazepam [Ativan] 1 mg PO BID 03/10/18 10/07/18 Multivitamin/Iron/Folic Acid 1 tab PO DAILY 03/10/18 10/07/18 [Centrum Complete Multivit Tab] Previous Rx's Medication Instructions Recorded Divalproex ER [Depakote ER] 1,000 mg PO HS 30 Days tab.er.24h 09/03/16 Allergies Allergy/AdvReac Type Severity Reaction Status Date / Time No Known Allergies Allergy Verified 10/07/18 10:31 Review of Systems ROS Statement: Those systems with pertinent positive or pertinent negative responses have been documented in the HPI. ROS Other: All systems not noted in ROS Statement are negative. Constitutional: Denies: fever Eyes: Denies: eye pain ENT: Denies: ear pain Respiratory: Denies: dyspnea Cardiovascular: Denies: chest pain Endocrine: Denies: fatigue Gastrointestinal: Denies: abdominal pain Genitourinary: Denies: dysuria Musculoskeletal: Denies: back pain Skin: Denies: rash Neurological: Denies: weakness Psychiatric: Reports: depression. Denies: suicidal thoughts Past Medical History Additional Past Medical History / Comment(s): Former Alcohol Dependence History of Any Multi-Drug Resistant Organisms: None Reported Past Surgical History: Section Past Psychological History: Bipolar Smoking Status: Current every day smoker Past Alcohol Use History: Daily Past Drug Use History: None Reported - Past Family History Mother Additional Family Medical History / Comment(s): Mother is alive at age 91 with no major medical problems. Father Additional Family Medical History / Comment(s): Father in his 70s from non- A non-B hepatitis Sister(s) Additional Family Medical History / Comment(s): She has one sister with no major medical problems. Patient does not have any brothers. Daughter(s) Additional Family Medical History / Comment(s): Patient has one daughter with no major medical problems. Patient does not have any sons. General Exam Limitations: no limitations General appearance: alert, in no apparent distress Head exam: Present: atraumatic, normocephalic Eye exam: Present: normal appearance, PERRL, EOMI, nystagmus ENT exam: Present: normal oropharynx Neck exam: Present: normal inspection Respiratory exam: Present: normal lung sounds bilaterally Cardiovascular Exam: Present: regular rate, normal rhythm GI/Abdominal exam: Present: soft. Absent: tenderness Extremities exam: Present: normal inspection Neurological exam: Present: alert, oriented X3. Absent: motor sensory deficit Expanded Patient oriented to: Present: person, place, time Motor strength exam: RUE: 5, LUE: 5, RLE: 5, LLE: 5 Psychiatric exam: Present: normal affect, normal mood Skin exam: Present: normal color Course Vital Signs 10/07/18 10:20 Temperature 98.3 F Pulse Rate 84 Respiratory 18 Rate Blood Pressure 126/77 O2 Sat by Pulse 98 Oximetry Medical Decision Making - Medical Decision Making Patient reevaluated and remains alert and appropriate. Patient is able to ambulate with steady gait. is present and willing to take patient home. They're recommended follow-up with rehab. Patient states she has been in rehab multiple times previously. - Lab Data Result diagrams: 10/07/18 11:34 10/07/18 11:34 Lab Results 10/07/18 10/07/18 Range/Units 11:34 11:34 WBC 9.0 (3.8-10.6) k/uL RBC 4.62 (3.80-5.40) m/uL Hgb 14.5 (11.4-16.0) gm/dL Hct 44.9 (34.0-46.0) % MCV 97.3 (80.0-100.0) fL MCH 31.3 (25.0-35.0) pg MCHC 32.2 (31.0-37.0) g/dL RDW 15.3 (11.5-15.5) % Plt Count 322 (150-450) k/uL Neutrophils % 66 % Lymphocytes % 21 % Monocytes % 5 % Eosinophils % 3 % Basophils % 1 % Neutrophils # 6.0 (1.3-7.7) k/uL Lymphocytes # 1.9 (1.0-4.8) k/uL Monocytes # 0.5 (0-1.0) k/uL Eosinophils # 0.3 (0-0.7) k/uL Basophils # 0.1 (0-0.2) k/uL Sodium 144 (137-145) mmol/L Potassium 5.1 (3.5-5.1) mmol/L Chloride 113 H (98-107) mmol/L Carbon Dioxide 26 (22-30) mmol/L Anion Gap 5 mmol/L BUN 11 (7-17) mg/dL Creatinine 0.60 (0.52-1.04) mg/dL Est GFR (CKD-EPI)AfAm >90 (>60 ml/min/1.73 sqM) Est GFR (CKD-EPI)NonAf >90 (>60 ml/min/1.73 sqM) Glucose 92 (74-99) mg/dL Calcium 8.9 (8.4-10.2) mg/dL Magnesium 2.1 (1.6-2.3) mg/dL Total Bilirubin 0.9 (0.2-1.3) mg/dL AST 94 H (14-36) U/L ALT 40 (9-52) U/L Alkaline Phosphatase 78 (38-126) U/L Total Protein 6.9 (6.3-8.2) g/dL Albumin 3.9 (3.5-5.0) g/dL Serum Alcohol 339 H* mg/dL Disposition Clinical Impression: Alcoholic intoxication Disposition: HOME SELF-CARE Condition: Stable Instructions (If sedation given, give patient instructions): Alcohol Intoxication (ED), Alcohol Withdrawal (ED) Additional Instructions: Please continue to try to wean herself off alcohol. Please follow-up with rehab, number provided. Please follow-up with primary care physician in the n ext day or 2 for recheck. Is patient prescribed a controlled substance at d/c from ED?: No Referrals: Carlos Eduardo Ellis MD [Primary Care Provider] - 1-2 days Time of Disposition: 12:36
[2018-10-07 11:44] LABS: Basophils # (A) 0.1 k/uL (0-0.2); Basophils % (A) 1 %; Eosinophils # (A) 0.3 k/uL (0-0.7); Eosinophils % (A) 3 %; HCT 44.9 % (34.0-46.0); HGB 14.5 gm/dL (11.4-16.0); Lymphocytes # (A) 1.9 k/uL (1.0-4.8); Lymphocytes % (A) 21 %; MCH 31.3 pg (25.0-35.0); MCHC 32.2 g/dL (31.0-37.0); MCV 97.3 fL (80.0-100.0); Mean Platelet Volume 6.7; Monocytes # (A) 0.5 k/uL (0-1.0); Monocytes % (A) 5 %; Neutrophils % (A) 66 %; Platelet Count 322 k/uL (150-450); RBC 4.62 m/uL (3.80-5.40); RDW 15.3 % (11.5-15.5)
[2018-10-07 11:52] LABS: ALT 40 U/L (9-52); AST 94 U/L (14-36); Albumin 3.9 g/dL (3.5-5.0); Alkaline Phosphatase 78 U/L (38-126); Anion Gap 5 mmol/L; Blood Urea Nitrogen 11 mg/dL (7-17); Calcium 8.9 mg/dL (8.4-10.2); Carbon Dioxide 26 mmol/L (22-30); Chloride 113 mmol/L (98-107); Glucose 92 mg/dL (74-99); Magnesium 2.1 mg/dL (1.6-2.3); Total Bilirubin 0.9 mg/dL (0.2-1.3); Total Protein 6.9 g/dL (6.3-8.2)
[2018-10-07 12:04] LABS: Potassium 5.1 mmol/L (3.5-5.1)
[2018-10-07 12:05] LABS: Alcohol 339 mg/dL
[2018-10-07 12:13] LABS: Sodium 144 mmol/L (137-145)
[2018-10-07 12:46] VITALS: BP 135/74
[2018-10-07 12:58] VITALS: PULSE 91
== END 2018-10-07 12:51 | disposition home or self-care (01) ==
LOC: EC 10:10
DX: F10.129 Alcohol abuse with intoxication, unspecified (principal); F31.30 Bipolar disorder, current episode depressed, mild or moderate severity, unspecified; F17.200 Nicotine dependence, unspecified, uncomplicated; Z79.899 Other long term (current) drug therapy; Z53.8 Procedure and treatment not carried out for other reasons
CPT/HCPCS: 36415; 80053; 80320; 83735; 85025; 96360; 96361; 99284

== ENCOUNTER → 2020-03-06 | Outpatient (CLI) | payer OTHER | END | disposition home or self-care (01) | LOC: LABWHC1 13:51 | PROVIDERS: ATTEND Family Medicine | DX: R06.7 Sneezing (principal); Z20.828 Contact with and (suspected) exposure to other viral communicable diseases; Z87.01 Personal history of pneumonia (recurrent) | CPT/HCPCS: U0003; C9803 ==

== ENCOUNTER 2020-08-22 10:44 | Inpatient (IN) | payer OTHER ==
--- NOTE | 2020-08-22 11:55 | XR ---
EXAMINATION TYPE: XR chest 2V DATE OF EXAM: 08/22/2020 COMPARISON: 03/10/2019 HISTORY: 60 year-old female shortness of breath, difficulty breathing TECHNIQUE: PA and lateral views FINDINGS: Heart is enlarged. Hyperinflation with relative upper lung lucencies. Moderate left effusion. Small r ight effusion. Prominent patchy opacities in the right mid and lower lung. IMPRESSION: COPD with moderate left and small right effusions. Prominent patchy pulmonary edema versus pneumonia in the right mid and lower lung.
--- NOTE | 2020-08-22 12:39 | ED ---
URI HPI - General Chief Complaint: Upper Respiratory Infection Stated Complaint: MECHE Time Seen by Provider: 08/22/20 11:20 Source: patient, RN notes reviewed Mode of arrival: ambulatory Limitations: no limitations - History of Present Illness Initial Comments: 60-year-old female presents emergency Department chief complaint pneumonia. Patient states she's been sick for over a week 2. Patient states she's been on multiple antibiotics for different reasons. Patient currently on azithromycin. Patient states that she's not feeling any better. Patient states that she was told x-ray show pneumonia. Patient has negative covid this week. Patient is a daily smoker has been diagnosed with COPD. - Related Data Home Medications Medication Instructions Recorded Confirmed LORazepam [Ativan] 1 mg PO BID 03/10/18 10/07/18 Multivitamin/Iron/Folic Acid 1 tab PO DAILY 03/10/18 10/07/18 [Centrum Complete Multivit Tab] Previous Rx's Medication Instructions Recorded Divalproex ER [Depakote ER] 1,000 mg PO HS 30 Days tab.er.24h 09/03/16 Allergies Allergy/AdvReac Type Severity Reaction Status Date / Time No Known Allergies Allergy Verified 10/07/18 10:31 Review of Systems ROS Statement: Those systems with pertinent positive or pertinent negative responses have been documented in the HPI. ROS Other: All systems not noted in ROS Statement are negative. Past Medical History Past Medical History: COPD, Pneumonia Additional Past Medical History / Comment(s): Former Alcohol Dependence History of Any Multi-Drug Resistant Organisms: None Reported Past Surgical History: Section Past Psychological History: No Psychological Hx Reported Smoking Status: Current every day smoker Past Alcohol Use History: None Reported Past Drug Use History: None Reported - Past Family History Mother Additional Family Medical History / Comment(s): Mother is alive at age 91 with no major medical problems. Father Additional Family Medical History / Comment(s): Father in his 70s from non- A non-B hepatitis Sister(s) Additional Family Medical History / Comment(s): She has one sister with no major medical problems. Patient does not have any brothers. Daughter(s) Additional Family Medical History / Comment(s): Patient has one daughter with no major medical problems. Patient does not have any sons. General Exam Limitations: no limitations General appearance: alert, in no apparent distress Head exam: Present: atraumatic, normocephalic, normal inspection Eye exam: Present: normal appearance, PERRL, EOMI. Absent: scleral icterus, conjunctival injection, periorbital swelling ENT exam: Present: normal exam, mucous membranes moist Neck exam: Present: normal inspection. Absent: tenderness, meningismus, lymphadenopathy Respiratory exam: Present: rhonchi. Absent: normal lung sounds bilaterally, respiratory distress, wheezes, rales, stridor Cardiovascular Exam: Present: regular rate, normal rhythm, normal heart sounds. Absent: systolic murmur, diastolic murmur, rubs, gallop, clicks GI/Abdominal exam: Present: soft, normal bowel sounds. Absent: distended, t enderness, guarding, rebound, rigid Skin exam: Present: warm, dry, intact, normal color. Absent: rash Course Vital Signs 08/22/20 10:49 Temperature 97.9 F Pulse Rate 77 Respiratory 18 Rate Blood Pressure 183/110 O2 Sat by Pulse 96 Oximetry Medical Decision Making - Medical Decision Making X-ray shows evidence of bilateral pneumonia, pleural effusions. Patient does have an elevated troponin 0.106. Patient's been having shortness breath or exertional symptoms. Patient will be admitted for cardiac workup, fell outpatient pneumonia. - Lab Data Result diagrams: 08/22/20 12:51 08/22/20 12:51 Lab Results 08/22/20 08/22/20 08/22/20 Range/Units 10:59 12:51 12:51 WBC 12.4 H (3.8-10.6) k/uL RBC 3.25 L (3.80-5.40) m/uL Hgb 10.6 L (11.4-16.0) gm/dL Hct 31.8 L (34.0-46.0) % MCV 97.8 (80.0-100.0) fL MCH 32.8 (25.0-35.0) pg MCHC 33.5 (31.0-37.0) g/dL RDW 15.9 H (11.5-15.5) % Plt Count 298 (150-450) k/uL MPV 7.6 Neutrophils % 81 % Lymphocytes % 9 % Monocytes % 7 % Eosinophils % 1 % Basophils % 1 % Neutrophils # 10.1 H (1.3-7.7) k/uL Lymphocytes # 1.2 (1.0-4.8) k/uL Monocytes # 0.9 (0-1.0) k/uL Eosinophils # 0.1 (0-0.7) k/uL Basophils # 0.1 (0-0.2) k/uL Macrocytosis Slight PT 11.2 (9.0-12.0) sec INR 1.1 (<1.2) APTT 26.9 (22.0-30.0) sec Sodium (137-145) mmol/L Potassium (3.5-5.1) mmol/L Chloride (98-107) mmol/L Carbon Dioxide (22-30) mmol/L Anion Gap mmol/L BUN (7-17) mg/dL Creatinine (0.52-1.04) mg/dL Est GFR (CKD-EPI)AfAm (>60 ml/min/1.73 sqM) Est GFR (CKD-EPI)NonAf (>60 ml/min/1.73 sqM) Glucose (74-99) mg/dL Plasma Lactic Acid Arron (0.7-2.0) mmol/L Calcium (8.4-10.2) mg/dL Magnesium (1.6-2.3) mg/dL Total Bilirubin (0.2-1.3) mg/dL AST (14-36) U/L ALT (4-34) U/L Alkaline Phosphatase (38-126) U/L Troponin I (0.000-0.034) ng/mL Total Protein (6.3-8.2) g/dL Albumin (3.5-5.0) g/dL Coronavirus (PCR) Not Detected (Not Detectd) 08/22/20 08/22/20 08/22/20 Range/Units 12:51 12:51 12:51 WBC (3.8-10.6) k/uL RBC (3.80-5.40) m/uL Hgb (11.4-16.0) gm/dL Hct (34.0-46.0) % MCV (80.0-100.0) fL MCH (25.0-35.0) pg MCHC (31.0-37.0) g/dL RDW (11.5-15.5) % Plt Count (150-450) k/uL MPV Neutrophils % % Lymphocytes % % Monocytes % % Eosinophils % % Basophils % % Neutrophils # (1.3-7.7) k/uL Lymphocytes # (1.0-4.8) k/uL Monocytes # (0-1.0) k/uL Eosinophils # (0-0.7) k/uL Basophils # (0-0.2) k/uL Macrocytosis PT (9.0-12.0) sec INR (<1.2) APTT (22.0-30.0) sec Sodium 134 L (137-145) mmol/L Potassium 4.5 (3.5-5.1) mmol/L Chloride 101 (98-107) mmol/L Carbon Dioxide 26 (22-30) mmol/L Anion Gap 7 mmol/L BUN 17 (7-17) mg/dL Creatinine 1.15 H (0.52-1.04) mg/dL Est GFR (CKD-EPI)AfAm 59 (>60 ml/min/1.73 sqM) Est GFR (CKD-EPI)NonAf 51 (>60 ml/min/1.73 sqM) Glucose 111 H (74-99) mg/dL Plasma Lactic Acid Arron 1.8 (0.7-2.0) mmol/L Calcium 9.4 (8.4-10.2) mg/dL Magnesium 2.2 (1.6-2.3) mg/dL Total Bilirubin 0.5 (0.2-1.3) mg/dL AST 28 (14-36) U/L ALT 21 (4-34) U/L Alkaline Phosphatase 109 (38-126) U/L Troponin I 0.106 H* (0.000-0.034) ng/mL Total Protein 6.1 L (6.3-8.2) g/dL Albumin 3.5 (3.5-5.0) g/dL Coronavirus (PCR) (Not Detectd) Disposition Clinical Impression: Bilateral pleural effusion, Pneumonia, Failure of outpatient treatment, NSTEMI (non-ST elevated myocardial infarction) Disposition: ADMITTED IP TO THIS [facility] Condition: Fair Referrals: Carlos Eduardo Ellis MD [Primary Care Provider] - 1-2 days
[2020-08-22 12:48] LABS: Albumin 3.5 g/dL (3.5-5.0); Calcium 9.4 mg/dL (8.4-10.2); Magnesium 2.2 mg/dL (1.6-2.3); Potassium 4.5 mmol/L (3.5-5.1); Total Bilirubin 0.5 mg/dL (0.2-1.3); Total Protein 6.1 g/dL (6.3-8.2)
[2020-08-22 12:53] LABS: INR 1.1 (<1.2); Partial Thromboplastin Time 26.9 sec (22.0-30.0); Prothrombin Time 11.2 sec (9.0-12.0)
[2020-08-22 12:59] LABS: Basophils # (A) 0.1 k/uL (0-0.2); Basophils % (A) 1 %; Eosinophils # (A) 0.1 k/uL (0-0.7); Eosinophils % (A) 1 %; HCT 31.8 % (34.0-46.0); HGB 10.6 gm/dL (11.4-16.0); Lymphocytes # (A) 1.2 k/uL (1.0-4.8); Lymphocytes % (A) 9 %; MCH 32.8 pg (25.0-35.0); MCHC 33.5 g/dL (31.0-37.0); MCV 97.8 fL (80.0-100.0); Macrocytosis Slight; Mean Platelet Volume 7.6; Monocytes # (A) 0.9 k/uL (0-1.0); Monocytes % (A) 7 %; Neutrophils # (A) 10.1 k/uL (1.3-7.7); Neutrophils % (A) 81 %; Platelet Count 298 k/uL (150-450); RBC 3.25 m/uL (3.80-5.40); RDW 15.9 % (11.5-15.5); WBC 12.4 k/uL (3.8-10.6)
[2020-08-22] MEDS ORDERED: NITROGLYCERIN SL TABS 0.4 MG TAB SUBLINGUAL PRN (13:39)
[2020-08-22] MEDS ORDERED: HEPARIN SODIUM 1,000 UN/ML (10ML VL) IV ONE (13:39)
[2020-08-22] MEDS ORDERED: ASPIRIN 81 MG PO STA (13:39)
[2020-08-22] MEDS ORDERED: AZITHROMYCIN 500 MG in SODIUM CHLORIDE 0.9% 250 ML IVPB STA (13:41)
[2020-08-22] MEDS ORDERED: cefTRIAXone IN SWFI 1,000 MG/10 ML SYRINGE IVP STA (13:41)
[2020-08-22] MEDS: HEPARIN SOD,PORK IN 0.45% NACL 25,000 UNIT in 0.45% NACL 1 250ML.BAG IV SCH (14:27)
[2020-08-22] MEDS: FUROSEMIDE 10 MG/ML 4 ML VIAL IV SCH ×2 (16:42→21:35)
--- NOTE | 2020-08-22 16:50 | P.HPIM ---
History of Present Illness This is a pleasant 60 years old female with past medical history of bipolar, substance induced bipolar. History of COPD. Previous history of alcohol abuse but not anymore and she is on antabuse for many years now. She is a patient of Dr. Ellis. Presents because of one month of progressive exertional dyspnea, no murmur the last 2 days she did not really wanted on moving from the bed to chair and she feels she is going to pass out. She is also complaining of from paroxysmal nocturnal dyspnea and orthopnea over the last 2 days. However she denies chest pain or coughing. No abdominal pain or diarrhea. No nausea vomiting. No urinary complaints like dysuria or urgency or hesitancy Yesterday she has some diarrhea but stopped Over the last month she has been treated with several courses of antibiotics for her right leg infection, UTI and dyspnea by her PCP She used to be alcohol abuse person but stopped now for more than a year. She keeps smokes 1.5 pack per day, she is consult and agrees to quit and she agrees to the nicotine patch. She denies illicit drugs Vitas looks stable, blood pressure was fluctuating 103/62 and 180/89 Leukocytosis of 12.4 K, Hemoglobin 10.6, INR Is Normal 1.1, BMP Is Unremarkable except for Elevated Creatinine 1.1, Her Creatinine 2 Years Ago Was 0.6. Liver Enzymes Not Elevated. Troponin Is High 0.10, proBNP is elevated 04817 Coronavirus nondetected EKG showed normal sinus rhythm at 92 BPM with no significant ST-T changes Chest x-ray showing COPD with moderate left and small right effusion. Prominent patchy pulmonary edema versus pneumonia in the right mid and lower lung Emergency room patient was given aspirin 325 mg, she was started on Zithromax and ceftriaxone and heparin drip MAPS was checked and patient was prescribed Ativan 1 mg 60 tablets for [address] Ellis last month Review of Systems CONSTITUTIONAL: No fever, no malaise, no fatigue. HEENT: No recent visual problems or hearing problems. Denied any sore throat. CARDIOVASCULAR: no palpitations, no syncope. PULMONARY: No chest wall tenderness, no hemoptysis. GASTROINTESTINAL: No diarrhea, no nausea, no vomiting, no abdominal pain. Normoactive bowel sounds. NEUROLOGICAL: No headaches, no weakness, no numbness. HEMATOLOGICAL: Denies any bleeding or petechiae. GENITOURINARY: Denies any burning micturition, frequency, or urgency. MUSCULOSKELETAL/RHEUMATOLOGICAL: Denies any joint pain, swelling, or any muscle pain. ENDOCRINE: Denies any polyuria or polydipsia. Past Medical History Past Medical History: COPD, Pneumonia Additional Past Medical History / Comment(s): Former Alcohol Dependence History of Any Multi-Drug Resistant Organisms: None Reported Past Surgical History: Section Past Psychological History: No Psychological Hx Reported Smoking Status: Current every day smoker Past Alcohol Use History: None Reported Past Drug Use History: None Reported - Past Family History Mother Additional Family Medical History / Comment(s): Mother is alive at age 91 with no major medical problems. Father Additional Family Medical History / Comment(s): Father in his 70s from non- A non-B hepatitis Sister(s) Additional Family Medical History / Comment(s): She has one sister with no major medical problems. Patient does not have any brothers. Daughter(s) Additional Family Medical History / Comment(s): Patient has one daughter with no major medical problems. Patient does not have any sons. Medications and Allergies Home Medications Medication Instructions Recorded Confirmed Type LORazepam [Ativan] 1 mg PO BID PRN 03/10/18 08/22/20 History Multivitamin/Iron/Folic Acid 1 tab PO AC-SUPPER 03/10/18 08/22/20 History [Centrum Complete Multivit Tab] Ascorbic Acid [Vitamin C] 1,000 mg PO AC-SUPPER 08/22/20 08/22/20 History Aspirin EC [Ecotrin Low Dose] 81 mg PO DAILY 08/22/20 08/22/20 History Azithromycin [Zithromax] See Taper PO DAILY 08/22/20 08/22/20 History Cholecalciferol [Vitamin D3 (25 50 mcg PO AC-SUPPER 08/22/20 08/22/20 History Mcg = 1000 Iu)] Cyclobenzaprine [Flexeril] 5 mg PO TID PRN 08/22/20 08/22/20 History Disulfiram [Antabuse] 250 mg PO HS 08/22/20 08/22/20 History Zinc Gluconate [Zinc] 50 mg PO AC-SUPPER 08/22/20 08/22/20 History Allergies Allergy/AdvReac Type Severity Reaction Status Date / Time No Known Allergies Allergy Verified 08/22/20 15:18 Physical Exam Vitals: Vital Signs Temp Pulse Resp BP Pulse Ox 08/22/20 13:42 98.5 F 94 16 184/89 95 08/22/20 10:49 97.9 F 77 18 183/110 96 Intake and Output 08/22/20 08/22/20 08/22/20 06:59 14:59 22:59 Other: Weight 67.585 kg GENERAL: The patient is alert and oriented x3, not in any acute distress. Well developed, well nourished. HEENT: Pupils are round and equally reacting to light. EOMI. No scleral icterus. No conjunctival pallor. Normocephalic, atraumatic. No pharyngeal erythema. No thyromegaly. CARDIOVASCULAR: S1 and S2 present. No murmurs, rubs, or gallops. -PULMONARY: Chest is clear to auscultation, no wheezing. Bilateral basal crepitation ABDOMEN: Soft, nontender, nondistended, normoactive bowel sounds. No palpable organomegaly. MUSCULOSKELETAL: No joint swelling or deformity. EXTREMITIES: No cyanosis, clubbing, or pedal edema. NEUROLOGICAL: Gross neurological examination did not reveal any focal deficits. SKIN: No rashes. No petechiae Results CBC & Chem 7: 08/22/20 12:51 08/22/20 12:51 Labs: Abnormal Lab Results - Last 24 Hours (Table) 08/22/20 08/22/20 08/22/20 Range/Units 12:51 12:51 12:51 WBC 12.4 H (3.8-10.6) k/uL RBC 3.25 L (3.80-5.40) m/uL Hgb 10.6 L (11.4-16.0) gm/dL Hct 31.8 L (34.0-46.0) % RDW 15.9 H (11.5-15.5) % Neutrophils # 10.1 H (1.3-7.7) k/uL Sodium 134 L (137-145) mmol/L Creatinine 1.15 H (0.52-1.04) mg/dL Glucose 111 H (74-99) mg/dL Troponin I 0.106 H* (0.000-0.034) ng/mL Total Protein 6.1 L (6.3-8.2) g/dL Assessment and Plan Assessment: Elevated troponin suspicious for non-STEMI Acute CHF, unknown ejection fraction, versus pneumonia (suspicion is low ) Acute kidney injury, mostly cardiorenal syndrome hypertensive with urgency upon admission COPD, but acute exacerbation history of bipolar, substance induced bipolar Plan: This is a pleasant 60 years old female who presents with possible non-STEMI, CHF versus pneumonia and mild ESPERANZA. Antibiotics with ceftriaxone and Zithromax, check procalcitonin. Continue with Lasix. Continue with aspirin and heparin drip, cardiology consult. Echocardiogram. Start metoprolol and monitor blood pressure Labs and medication were reviewed.. Continue same treatment. Continue with symptomatic treatment. Resume home medication. Monitor lytes and vitals. DVT and GI prophylaxis. Further recommendations depends on the clinical course of the patient DVT prophylaxis: heparin GI Prophylaxis: Pepcid Prognosis is guarded
[2020-08-22] MEDS: METOPROLOL TARTRATE 25 MG TAB PO SCH ×2 (17:35→21:35)
[2020-08-22] MEDS: NICOTINE 21MG/24HR PATCH TRANSDERM SCH (17:36)
[2020-08-22] MEDS: ASCORBIC ACID 500 MG TAB PO SCH (17:42)
[2020-08-22] MEDS: ZINC SULFATE 220 MG CAP PO SCH (17:42)
[2020-08-22] MEDS: CHOLECALCIFEROL 25 MCG (1000 IU) TABLET PO SCH (17:42)
--- NOTE | 2020-08-22 18:28 | ECHOF ---
Referral Reason:NSTEMI MEASUREMENTS -------- HEIGHT: 172.7 cm WEIGHT: 67.6 kg BP: 184/89 RVIDd: 3.1 cm (< 3.3) IVSd: 1.4 cm (0.6 - 1.1) LVIDd: 5.3 cm (3.9 - 5.3) LVPWd: 1.4 cm (0.6 - 1.1) IVSs: 1.7 cm LVIDs: 4.4 cm LVPWs: 1.7 cm LA Diam: 4.4 cm (2.7 - 3.8) LAESV Index (A-L): 43.91 ml/m Ao Diam: 3.1 cm (2.0 - 3.7) AV Cusp: 2.0 cm (1.5 - 2.6) MV EXCURSION: 15.618 mm (> 18.000) MV EF SLOPE: 74 mm/s (70 - 150) EPSS: 1.3 cm MV E Raul: 0.87 m/s MV DecT: 246 ms MV A Raul: 1.01 m/s MV E/A Ratio: 0.86 AV maxP.68 mmHg AV meanP.25 mmHg RAP: 5.00 mmHg RVSP: 50.37 mmHg FINDINGS -------- Sinus rhythm. This was a technically good study. The left ventricular size is normal. There is moderate concentric left ventricular hypertrophy. O verall left ventricular systolic function is moderate-severely impaired with, an EF between 30 - 35 % . The right ventricle is normal in size. LA is severely dilated >40 ml/m2 The right atrium is normal in size. Interatrial and interventricular septum intact. The aortic valve is trileaflet, and appears structurally normal. No aortic stenosis or regurgitation. Mild mitral regurgitation is present. Mild tricuspid regurgitation present. There is moderate pulmonary hypertension. The right ventric ular systolic pressure, as measured by Doppler, is 50.37mmHg. Trace/mild (physiologic) pulmonic regurgitation. The aortic root size is normal. Normal inferior vena cava with normal inspiratory collapse consistent with estimated right atrial pre ssure of 5 mmHg. The inferior vena cava is mildly dilated. There is a trivial pericardial effusion present. CONCLUSIONS -------- 1. The left ventricular size is normal. 2. There is moderate concentric left ventricular hypertrophy. 3. Overall left ventricular systolic function is moderate-severely impaired with, an EF between 30 - 35 %. 4. LA is severely dilated >40 ml/m2 5. Mild mitral regurgitation is present. 6. Mild tricuspid regurgitation present. 7. There is moderate pulmonary hypertension. 8. The right ventricular systolic pressure, as measured by Doppler, is 50.37mmHg. 9. Trace/mild (physiologic) pulmonic regurgitation. 10. The inferior vena cava is mildly dilated. 11. There is a trivial pericardial effusion present. ADMISSIONS ADVISOR: Jaleesa Razo RDCS
[2020-08-22] MEDS: LORazepam 1 MG TAB PO PRN (21:35)
[2020-08-23] MEDS: hydrALAZINE HCL 25 MG TAB PO PRN ×3 (00:41→22:32)
[2020-08-23 06:17] LABS: Basophils # (A) 0.1 k/uL (0-0.2); Basophils % (A) 1 %; Eosinophils # (A) 0.3 k/uL (0-0.7); Eosinophils % (A) 3 %; HCT 32.7 % (34.0-46.0); HGB 10.9 gm/dL (11.4-16.0); Lymphocytes # (A) 1.4 k/uL (1.0-4.8); Lymphocytes % (A) 14 %; MCH 32.9 pg (25.0-35.0); MCHC 33.4 g/dL (31.0-37.0); MCV 98.5 fL (80.0-100.0); Macrocytosis Slight; Mean Platelet Volume 7.7; Monocytes # (A) 0.7 k/uL (0-1.0); Monocytes % (A) 6 %; Neutrophils # (A) 7.9 k/uL (1.3-7.7); Neutrophils % (A) 75 %; Platelet Count 251 k/uL (150-450); RBC 3.32 m/uL (3.80-5.40); RDW 15.6 % (11.5-15.5); WBC 10.5 k/uL (3.8-10.6)
[2020-08-23 06:34] LABS: Potassium 3.1 mmol/L (3.5-5.1)
[2020-08-23] MEDS: CYCLOBENZAPRINE 5 MG TAB PO PRN ×2 (06:37→19:35)
--- NOTE | 2020-08-23 08:18 | P.CRDCN ---
History of Present Illness Consult date: 08/23/20 Chief complaint: Shortness of breath History of present illness: This is a pleasant 60-year-old female patient with no history of coronary artery disease or congestive heart failure or cardiac arrhythmia but the patient does have history of smoking seems to be very significant and also history of bipolar disorder. We requested to see the patient here in the emergency department for further evaluation of abnormal cardiac enzymes and elevated troponin. For the last 6 month the patient has been experiencing shortness of breath with exertion and she always thinks that is related to COPD. For the last 4 weeks the shortness of breath has been increasing. She describes exertional dyspnea as well as orthopnea. No paroxysmal nocturnal dyspnea. No lower extremities edema. No change in the weight. No symptoms of chest pain or chest discomfort. No symptoms of fever or chills. No cough or sputum production. When she presented to the emergency department she was hypertensive and also she was tachycardic. The troponin came in to be elevated but flat across support. She underwent an EKG which showed sinus rhythm with sinus tachycardia and poor R- wave progression in the anteroseptal leads. She underwent an echocardiogram which revealed severe cardiomyopathy with an EF between 30-35% without any significant wall motion abnormalities. No significant valvular abnormalities seen. The patient is not aware of any prior history of cardiomyopathy and that seems to be new to her. Please note that in the pro BNP also came in to be significantly elevated. She underwent a chest x-ray and that showed evidence of pulmonary edema. On examination she does have crackles in both bases. No lower except his edema. No JVD noted. Past Medical History Past Medical History: COPD, Pneumonia Additional Past Medical History / Comment(s): Former Alcohol Dependence History of Any Multi-Drug Resistant Organisms: None Reported Past Surgical History: Section Past Psychological History: No Psychological Hx Reported Smoking Status: Current every day smoker Past Alcohol Use History: None Reported Past Drug Use History: None Reported - Past Family History Mother Additional Family Medical History / Comment(s): Mother is alive at age 91 with no major medical problems. Father Additional Family Medical History / Comment(s): Father in his 70s from non- A non-B hepatitis Sister(s) Additional Family Medical History / Comment(s): She has one sister with no major medical problems. Patient does not have any brothers. Daughter(s) Additional Family Medical History / Comment(s): Patient has one daughter with no major medical problems. Patient does not have any sons. Medications and Allergies Home Medications Medication Instructions Recorded Confirmed Type LORazepam [Ativan] 1 mg PO BID PRN 03/10/18 08/22/20 History Multivitamin/Iron/Folic Acid 1 tab PO AC-SUPPER 03/10/18 08/22/20 History [Centrum Complete Multivit Tab] Ascorbic Acid [Vitamin C] 1,000 mg PO AC-SUPPER 08/22/20 08/22/20 History Aspirin EC [Ecotrin Low Dose] 81 mg PO DAILY 08/22/20 08/22/20 History Azithromycin [Zithromax] See Taper PO DAILY 08/22/20 08/22/20 History Cholecalciferol [Vitamin D3 (25 50 mcg PO AC-SUPPER 08/22/20 08/22/20 History Mcg = 1000 Iu)] Cyclobenzaprine [Flexeril] 5 mg PO TID PRN 08/22/20 08/22/20 History Disulfiram [Antabuse] 250 mg PO HS 08/22/20 08/22/20 History Zinc Gluconate [Zinc] 50 mg PO AC-SUPPER 08/22/20 08/22/20 History Allergies Allergy/AdvReac Type Severity Reaction Status Date / Time No Known Allergies Allergy Verified 08/22/20 15:18 Physical Exam Vitals: Vital Signs Temp Pulse Pulse Resp BP BP Pulse Ox 08/23/20 04:00 98.0 F 81 19 167/86 91 L 08/23/20 02:00 81 18 08/23/20 01:04 97.9 F 82 19 180/101 99 08/22/20 21:30 98.0 F 82 18 170/99 97 08/22/20 16:48 95 16 180/97 98 08/22/20 15:47 89 16 174/102 99 08/22/20 13:42 98.5 F 94 16 184/89 95 08/22/20 10:49 97.9 F 77 18 183/110 96 Intake and Output 08/22/20 08/23/20 08/23/20 22:59 06:59 14:59 Intake Total 338.264 57.087 Balance 338.264 57.087 Intake: Intake, IV Titration 338.264 57.087 Amount Azithromycin 500 mg In 250 Sodium Chloride 0.9% 250 ml @ 250 mls/hr IVPB ONCE STA Rx#:[id number] Heparin Sod,Pork in 0.45% 88.264 57.087 NaCl 25,000 unit In 0.45 % NaCl 1 250ml.bag @ 12 UNITS/KG/HR 8.11 mls/hr IV .Q24H [facility] Rx#: [id number] Other: Voiding Method Toilet # Voids 2 - Constitutional General appearance: no acute distress - Respiratory Respiratory: bilateral: rales - Cardiovascular Rhythm: regular Abnormal Heart Sounds: systolic murmur Results 08/23/20 05:43 08/23/20 05:43 Cardiac Enzymes 08/22/20 08/22/20 08/22/20 Range/Units 12:51 12:51 16:55 AST 28 (14-36) U/L Troponin I 0.106 H* 0.109 H* (0.000-0.034) ng/mL 08/22/20 Range/Units 19:55 AST (14-36) U/L Troponin I 0.113 H* (0.000-0.034) ng/mL Coagulation 08/22/20 08/22/20 08/23/20 Range/Units 12:51 23:44 05:43 PT 11.2 (9.0-12.0) sec APTT 26.9 37.9 H 41.5 H (22.0-30.0) sec Lipids 08/23/20 Range/Units 05:43 Triglycerides 74 (<150) mg/dL Cholesterol 129 (<200) mg/dL HDL Cholesterol 53 (40-60) mg/dL CBC 08/22/20 08/23/20 Range/Units 12:51 05:43 WBC 12.4 H 10.5 (3.8-10.6) k/uL RBC 3.25 L 3.32 L (3.80-5.40) m/uL Hgb 10.6 L 10.9 L (11.4-16.0) gm/dL Hct 31.8 L 32.7 L (34.0-46.0) % Plt Count 298 251 (150-450) k/uL Comprehensive Metabolic Panel 08/22/20 08/23/20 Range/Units 12:51 05:43 Sodium 134 L 136 L (137-145) mmol/L Potassium 4.5 3.1 L (3.5-5.1) mmol/L Chloride 101 104 (98-107) mmol/L Carbon Dioxide 26 29 (22-30) mmol/L BUN 17 17 (7-17) mg/dL Creatinine 1.15 H 1.16 H (0.52-1.04) mg/dL Glucose 111 H 90 (74-99) mg/dL Calcium 9.4 9.0 (8.4-10.2) mg/dL AST 28 (14-36) U/L ALT 21 (4-34) U/L Alkaline Phosphatase 109 (38-126) U/L Total Protein 6.1 L (6.3-8.2) g/dL Albumin 3.5 (3.5-5.0) g/dL Current Medications Generic Name Dose Route Start Last Admin Trade Name Freq PRN Reason Stop Dose Admin Ascorbic Acid 1,000 mg 08/22/20 17:30 08/22/20 17:42 Ascorbic Acid 500 Mg Tab PO 1,000 mg AC-SUPPER [facility] Administration Aspirin 325 mg 08/23/20 09:00 Aspirin 325 Mg Tab PO DAILY [facility] Cholecalciferol 50 mcg 08/22/20 17:30 08/22/20 17:42 Cholecalciferol 25 Mcg (1000 Iu) Tablet PO 50 mcg AC-SUPPER [facility]RIST[facility] Administration Cyclobenzaprine HCl 5 mg 08/22/20 15:36 08/23/20 06:37 Cyclobenzaprine 5 Mg Tab PO 5 mg TID PRN Administration neck pain Furosemide 40 mg 08/22/20 15:36 08/22/20 21:35 Furosemide 10 Mg/Ml 4 Ml Vial IV 40 mg BID [facility]RISTY Administration Hydralazine HCl 25 mg 08/22/20 16:48 08/23/20 04:09 Hydralazine Hcl 25 Mg Tab PO 25 mg QID PRN Administration Blood Pressure - High Heparin Sodium/Sodium Chloride 250 mls @ 8.11 mls/hr 08/22/20 13:45 08/23/20 07:22 25,000 unit/ Sodium Chloride IV 16 units/kg/hr .Q24H [facility] 10.814 mls/hr Titration Protocol 12 UNITS/KG/HR Lorazepam 1 mg 08/22/20 15:36 08/22/20 21:35 Lorazepam 1 Mg Tab PO 1 mg BID PRN Administration Anxiety Metoprolol Tartrate 25 mg 08/22/20 16:47 08/22/20 21:35 Metoprolol Tartrate 25 Mg Tab PO 25 mg BID [facility]RI[facility] Administration Nicotine 1 patch 08/22/20 16:45 08/22/20 17:36 Nicotine 21mg/24hr Patch TRANSDERM 1 patch DAILY [facility]RI[facility]Y Administration Nitroglycerin 0.4 mg 08/22/20 13:39 Nitroglycerin Sl Tabs 0.4 Mg Tab SUBLINGUAL Q5M PRN Chest Pain Zinc Sulfate 220 mg 08/22/20 17:30 08/22/20 17:42 Zinc Sulfate 220 Mg Cap PO 220 mg AC-SUPPER CHRISTY Administration Intake and Output 08/22/20 08/23/20 08/23/20 22:59 06:59 14:59 Intake Total 338.264 57.087 Balance 338.264 57.087 Intake: Intake, IV Titration 338.264 57.087 Amount Azithromycin 500 mg In 250 Sodium Chloride 0.9% 250 ml @ 250 mls/hr IVPB ONCE STA Rx#:[id number] Heparin Sod,Pork in 0.45% 88.264 57.087 NaCl 25,000 unit In 0.45 % NaCl 1 250ml.bag @ 12 UNITS/KG/HR 8.11 mls/hr IV .Q24H [facility] Rx#: [id number] Other: Voiding Method Toilet # Voids 2 08/23/20 05:43 08/23/20 05:43 Assessment and Plan Assessment: Assessment #1 acute exacerbation of heart failure with reduced ejection fraction. #2 heart failure was reduced ejection fraction appears to be new diagnosis the patient #3 uncontrolled blood pressure #4 sinus tachycardia #5 abnormal cardiac enzymes #6 multiple comorbid conditions Plan #1 DC metoprolol tartrate and start the patient on metoprolol succinate #2 start the patient on lisinopril #3 start the patient on Aldactone #4 continue IV Lasix #5 continue monitor the kidney function and electrolytes #6 continue heparin IV #7 continue aspirin #8 consider coronary angiogram to rule out severe CAD was patient is more stable from the heart failure standpoint of view
[2020-08-23] MEDS: SPIRONOLACTONE 25 MG TAB PO SCH (08:44)
[2020-08-23] MEDS: FUROSEMIDE 10 MG/ML 4 ML VIAL IV SCH ×2 (08:44→19:34)
[2020-08-23] MEDS: lisinopriL 5 MG TAB PO SCH (08:44)
[2020-08-23] MEDS: ASPIRIN 325 MG TAB PO SCH (08:45)
[2020-08-23] MEDS: NICOTINE 21MG/24HR PATCH TRANSDERM SCH (08:45)
[2020-08-23] MEDS: METOPROLOL SUCCINATE (ER) 50 MG TAB.ER.24H PO SCH (08:45)
[2020-08-23] MEDS ORDERED: ALPRAZolam 0.25 MG TAB PO STA (11:12)
--- NOTE | 2020-08-23 14:47 | P.PN ---
Subjective This is a pleasant 60 years old female with past medical history of bipolar, substance induced bipolar. History of COPD. Previous history of alcohol abuse but not anymore and she is on antabuse for many years now. She is a patient of Dr. Ellis. Presents because of one month of progressive exertional dyspnea, no murmur the last 2 days she did not really wanted on moving from the bed to chair and she feels she is going to pass out. She is also complaining of from paroxysmal nocturnal dyspnea and orthopnea over the last 2 days. However she denies chest pain or coughing. No abdominal pain or diarrhea. No nausea vomiting. No urinary complaints like dysuria or urgency or hesitancy Yesterday she has some diarrhea but stopped Over the last month she has been treated with several courses of antibiotics for her right leg infection, UTI and dyspnea by her PCP She used to be alcohol abuse person but stopped now for more than a year. She keeps smokes 1.5 pack per day, she is consult and agrees to quit and she agrees to the nicotine patch. She denies illicit drugs Vitas looks stable, blood pressure was fluctuating 103/62 and 180/89 Leukocytosis of 12.4 K, Hemoglobin 10.6, INR Is Normal 1.1, BMP Is Unremarkable except for Elevated Creatinine 1.1, Her Creatinine 2 Years Ago Was 0.6. Liver Enzymes Not Elevated. Troponin Is High 0.10, proBNP is elevated [id number] Coronavirus nondetected EKG showed normal sinus rhythm at 92 BPM with no significant ST-T changes Chest x-ray showing COPD with moderate left and small right effusion. Prominent patchy pulmonary edema versus pneumonia in the right mid and lower lung Emergency room patient was given aspirin 325 mg, she was started on Zithromax and ceftriaxone and heparin drip MAPS was checked and patient was prescribed Ativan 1 mg 60 tablets for [address] Ellis last month 08/23/2020 Patient breathing is significantly improved, no chest pain, no coughing. No leg swelling. She is hemodynamically stable, blood pressure is better at 159/83 after metoprolol increased to 50 mg daily. Creatinine is stable at 1.1 and not improvement it might indicate chronic kidney disease stage III. Her WBC is back to normal at 10 K. Other antihypertensive medication added including Aldactone and lisinopril today. Also she continue with Lasix IV 40 mg twice daily and on heparin drip Ejection fraction showing 30-35% indicate any new onset systolic CHF. Physician General Internal Medicine team on board and the plan and on cardiac cath as certain point Pro-calcitonin is normal at 0.09 which goes against pneumonia Objective - Vital Signs Vital signs: Vital Signs Temp 98.0 F 08/23/20 08:54 Pulse 82 08/23/20 11:00 Resp 18 08/23/20 11:00 BP 159/83 08/23/20 11:00 Pulse Ox 95 08/23/20 11:00 Intake & Output 08/22/20 08/23/20 08/23/20 18:59 06:59 18:59 Intake Total 338.264 57.087 Balance 338.264 57.087 Weight 67.585 kg Intake: Intake, IV Titration 338.264 57.087 Amount Azithromycin 500 mg In 250 Sodium Chloride 0.9% 250 ml @ 250 mls/hr IVPB ONCE STA Rx#:[id number] Heparin Sod,Pork in 0.45% 88.264 57.087 NaCl 25,000 unit In 0.45 % NaCl 1 250ml.bag @ 12 UNITS/KG/HR 8.11 mls/hr IV .Q24H [facility] Rx#: [id number] Other: Voiding Method Toilet # Voids 2 - Exam GENERAL: The patient is alert and oriented x3, not in any acute distress. Well developed, well nourished. HEENT: Pupils are round and equally reacting to light. EOMI. No scleral icterus. No conjunctival pallor. Normocephalic, atraumatic. No pharyngeal erythema. No thyromegaly. CARDIOVASCULAR: S1 and S2 present. No murmurs, rubs, or gallops. PULMONARY: Chest is clear to auscultation, no wheezing or crackles. ABDOMEN: Soft, nontender, nondistended, normoactive bowel sounds. No palpable organomegaly. MUSCULOSKELETAL: No joint swelling or deformity. EXTREMITIES: No cyanosis, clubbing, or pedal edema. NEUROLOGICAL: Gross neurological examination did not reveal any focal deficits. SKIN: No rashes. no petechiae. - Labs CBC & Chem 7: 08/23/20 05:43 08/23/20 05:43 Labs: Abnormal Lab Results - Last 24 Hours (Table) 08/22/20 08/22/20 08/22/20 Range/Units 12:51 16:55 19:55 RBC (3.80-5.40) m/uL Hgb (11.4-16.0) gm/dL Hct (34.0-46.0) % RDW (11.5-15.5) % Neutrophils # (1.3-7.7) k/uL APTT (22.0-30.0) sec Sodium (137-145) mmol/L Potassium (3.5-5.1) mmol/L Creatinine (0.52-1.04) mg/dL Troponin I 0.109 H* 0.113 H* (0.000-0.034) ng/mL Procalcitonin 0.10 H (0.02-0.09) ng/mL 08/22/20 08/23/20 08/23/20 Range/Units 23:44 05:43 05:43 RBC 3.32 L (3.80-5.40) m/uL Hgb 10.9 L (11.4-16.0) gm/dL Hct 32.7 L (34.0-46.0) % RDW 15.6 H (11.5-15.5) % Neutrophils # 7.9 H (1.3-7.7) k/uL APTT 37.9 H (22.0-30.0) sec Sodium 136 L (137-145) mmol/L Potassium 3.1 L (3.5-5.1) mmol/L Creatinine 1.16 H (0.52-1.04) mg/dL Troponin I (0.000-0.034) ng/mL Procalcitonin (0.02-0.09) ng/mL 08/23/20 08/23/20 Range/Units 05:43 11:50 RBC (3.80-5.40) m/uL Hgb (11.4-16.0) gm/dL Hct (34.0-46.0) % RDW (11.5-15.5) % Neutrophils # (1.3-7.7) k/uL APTT 41.5 H 35.2 H (22.0-30.0) sec Sodium (137-145) mmol/L Potassium (3.5-5.1) mmol/L Creatinine (0.52-1.04) mg/dL Troponin I (0.000-0.034) ng/mL Procalcitonin (0.02-0.09) ng/mL Assessment and Plan Assessment: Elevated troponin suspicious for non-STEMI Acute systolic CHF, new onset with ejection fraction 30-35% Acute kidney injury, mostly cardiorenal versus chronic kidney disease stage III hypertensive with urgency upon admission. Trending down COPD, not in acute exacerbation history of bipolar, substance induced bipolar Plan: This is a pleasant 60 years old female who presents with possible non-STEMI, CHF versus pneumonia (less likely and no need for antibiotics) Antibiotics with ceftriaxone and Zithromax, check procalcitonin. Continue with Lasix. Continue with aspirin and heparin drip, cardiology consult. Echocardiogram. Continue with antihypertensive medication Labs and medication were reviewed.. Continue same treatment. Continue with symptomatic treatment. Resume home medication. Monitor lytes and vitals. DVT and GI prophylaxis. Further recommendations depends on the clinical course of the patient DVT prophylaxis: heparin GI Prophylaxis: Pepcid Prognosis is guarded
[2020-08-23] MEDS: HEPARIN SOD,PORK IN 0.45% NACL 25,000 UNIT in 0.45% NACL 1 250ML.BAG IV SCH (14:56)
[2020-08-23] MEDS: ASCORBIC ACID 500 MG TAB PO SCH (18:37)
[2020-08-23] MEDS: CHOLECALCIFEROL 25 MCG (1000 IU) TABLET PO SCH (18:37)
[2020-08-23] MEDS: ZINC SULFATE 220 MG CAP PO SCH (18:37)
[2020-08-23] MEDS: LORazepam 1 MG TAB PO PRN (19:35)
[2020-08-24] MEDS: hydrALAZINE HCL 25 MG TAB PO PRN (03:27)
[2020-08-24] MEDS ORDERED: POTASSIUM CHLORIDE 20 MEQ in WATER FOR INJECTION 1 100ML.BAG IVPB STA (07:46)
[2020-08-24 08:34] LABS: Basophils # (A) 0.1 k/uL (0-0.2); Basophils % (A) 1 %; Eosinophils # (A) 0.2 k/uL (0-0.7); Eosinophils % (A) 1 %; HCT 33.5 % (34.0-46.0); HGB 11.5 gm/dL (11.4-16.0); Lymphocytes # (A) 1.2 k/uL (1.0-4.8); Lymphocytes % (A) 10 %; MCH 33.4 pg (25.0-35.0); MCHC 34.5 g/dL (31.0-37.0); Mean Platelet Volume 7.3; Monocytes # (A) 0.9 k/uL (0-1.0); Monocytes % (A) 7 %; Neutrophils # (A) 9.7 k/uL (1.3-7.7); Neutrophils % (A) 80 %; Platelet Count 247 k/uL (150-450); RBC 3.45 m/uL (3.80-5.40); RDW 15.6 % (11.5-15.5); WBC 12.2 k/uL (3.8-10.6)
[2020-08-24 08:57] LABS: Calcium 8.8 mg/dL (8.4-10.2)
[2020-08-24] MEDS: NICOTINE 21MG/24HR PATCH TRANSDERM SCH (09:39)
[2020-08-24] MEDS: FUROSEMIDE 10 MG/ML 4 ML VIAL IV SCH ×2 (09:39→19:35)
[2020-08-24] MEDS: SPIRONOLACTONE 25 MG TAB PO SCH (09:39)
[2020-08-24] MEDS: ASPIRIN 325 MG TAB PO SCH (09:39)
[2020-08-24] MEDS: METOPROLOL SUCCINATE (ER) 50 MG TAB.ER.24H PO SCH (09:39)
[2020-08-24] MEDS: lisinopriL 5 MG TAB PO SCH (09:39)
--- NOTE | 2020-08-24 09:54 | P.PN ---
Subjective Progress Note Date: 08/24/20 This is a 60-year-old female with past medical history of nicotine dependence, COPD, former alcohol dependence, bipolar disorder. Patient presented to the hospital with symptoms of worsening shortness of breath, she was seen in consultation yesterday by Dr. Lozano. Echocardiogram with Doppler study revealed an ejection fraction of 30-35% without any significant wall motion abnormalities. No significant valvular abnormalities. Patient's BNP level also came back to be significantly elevated and her chest x-ray showed pulmonary edema. Patient was initiated on IV Lasix yesterday. She diuresed well through the night last night and her weight is down significantly this morning. Blood pressure 160/90 with a heart rate in the 90s, 95% on room air. White blood cell count 12.2, hemoglobin 11.5, platelet count 247. Sodium 134, potassium 3.0, BUN 17, creatinine 1.1. Patient continues to be on IV Lasix. Objective - Vital Signs Vital signs: Vital Signs Temp 97.8 F 08/24/20 09:34 Pulse 98 08/24/20 09:34 Resp 16 08/24/20 09:34 BP 160/95 08/24/20 09:34 Pulse Ox 95 08/24/20 09:34 Intake & Output 08/23/20 08/24/20 08/24/20 18:59 06:59 18:59 Intake Total 188.947 240 240 Output Total 1700 Balance 188.947 -1460 240 Weight 67.585 kg 60.2 kg Intake: Intake, IV Titration 138.947 Amount Heparin Sod,Pork in 0.45% 138.947 NaCl 25,000 unit In 0.45 % NaCl 1 250ml.bag @ 12 UNITS/KG/HR 8.11 mls/hr IV .Q24H [facility] Rx#: [id number] Oral 50 240 240 Output: Urine 1700 Other: Voiding Method Toilet Toilet # Voids 1 - Exam PHYSICAL EXAMINATION: GENERAL: 60-year-old female in no acute distress at the time of my examination HEENT: Head is atraumatic, normocephalic. Pupils equal, round. Sclera anicteric. Conjunctiva are clear. Mucous membranes of the mouth are moist. Neck is supple. There is no elevated jugular venous pressure. No carotid bruit is heard. HEART EXAMINATION: Heart S1 S2 1 systolic murmur is heard CHEST EXAMINATION: On's reveal diminished air entry bilaterally with rales to the bases ABDOMEN: Soft, nontender. Bowel sounds are heard. No organomegaly noted. EXTREMITIES: 2+ peripheral pulses with evidence of peripheral edema and no calf tenderness noted. NEUROLOGIC patient is awake, alert and oriented 3 . . - Labs CBC & Chem 7: 08/24/20 07:39 08/24/20 07:39 Labs: Abnormal Lab Results - Last 24 Hours (Table) 08/23/20 08/23/20 08/24/20 Range/Units 11:50 19:21 07:39 WBC (3.8-10.6) k/uL RBC (3.80-5.40) m/uL Hct (34.0-46.0) % RDW (11.5-15.5) % Neutrophils # (1.3-7.7) k/uL APTT 35.2 H 63.5 H 62.6 H (22.0-30.0) sec Sodium (137-145) mmol/L Potassium (3.5-5.1) mmol/L Creatinine (0.52-1.04) mg/dL 08/24/20 08/24/20 Range/Units 07:39 07:39 WBC 12.2 H (3.8-10.6) k/uL RBC 3.45 L (3.80-5.40) m/uL Hct 33.5 L (34.0-46.0) % RDW 15.6 H (11.5-15.5) % Neutrophils # 9.7 H (1.3-7.7) k/uL APTT (22.0-30.0) sec Sodium 134 L (137-145) mmol/L Potassium 3.0 L (3.5-5.1) mmol/L Creatinine 1.16 H (0.52-1.04) mg/dL Microbiology - Last 24 Hours (Table) 08/22/20 14:08 Blood Culture - Preliminary Blood No Growth after 24 hours 08/22/20 14:08 Blood Culture - Preliminary Blood No Growth after 24 hours Assessment and Plan Plan: Assessment and plan #1 systolic congestive heart failure acute on chronic #2 accelerated hypertension #3 sinus tachycardia #4 abnormality in troponin with no significant rise and fall pattern not suggestive of acute coronary syndrome #5 nicotine dependence #6 COPD #7 bipolar disorder Plan We will continue current dose of IV Lasix, continue to monitor the patient's intake and output. Continue metoprolol, increase dose of lisinopril, continue Aldactone, decrease Asa to 81mg. Continue to monitor the intake and output. Once the patient is stable from a heart failure perspective, we will consider coronary angiogram to rule out severe CAD. Further recommendations to follow DNP note has been reviewed, I agree with a documented findings and plan of care. Patient was seen and examined.
--- NOTE | 2020-08-24 14:12 | P.PN ---
Subjective This is a pleasant 60 years old female with past medical history of bipolar, substance induced bipolar. History of COPD. Previous history of alcohol abuse but not anymore and she is on antabuse for many years now. She is a patient of Dr. Ellis. Presents because of one month of progressive exertional dyspnea, no murmur the last 2 days she did not really wanted on moving from the bed to chair and she feels she is going to pass out. She is also complaining of from paroxysmal nocturnal dyspnea and orthopnea over the last 2 days. However she denies chest pain or coughing. No abdominal pain or diarrhea. No nausea vomiting. No urinary complaints like dysuria or urgency or hesitancy Yesterday she has some diarrhea but stopped Over the last month she has been treated with several courses of antibiotics for her right leg infection, UTI and dyspnea by her PCP She used to be alcohol abuse person but stopped now for more than a year. She keeps smokes 1.5 pack per day, she is consult and agrees to quit and she agrees to the nicotine patch. She denies illicit drugs Vitas looks stable, blood pressure was fluctuating 103/62 and 180/89 Leukocytosis of 12.4 K, Hemoglobin 10.6, INR Is Normal 1.1, BMP Is Unremarkable except for Elevated Creatinine 1.1, Her Creatinine 2 Years Ago Was 0.6. Liver Enzymes Not Elevated. Troponin Is High 0.10, proBNP is elevated 27682 Coronavirus nondetected EKG showed normal sinus rhythm at 92 BPM with no significant ST-T changes Chest x-ray showing COPD with moderate left and small right effusion. Prominent patchy pulmonary edema versus pneumonia in the right mid and lower lung Emergency room patient was given aspirin 325 mg, she was started on Zithromax and ceftriaxone and heparin drip MAPS was checked and patient was prescribed Ativan 1 mg 60 tablets for [address] Ellis last month 08/23/2020 Patient breathing is significantly improved, no chest pain, no coughing. No leg swelling. She is hemodynamically stable, blood pressure is better at 159/83 after metoprolol increased to 50 mg daily. Creatinine is stable at 1.1 and not improvement it might indicate chronic kidney disease stage III. Her WBC is back to normal at 10 K. Other antihypertensive medication added including Aldactone and lisinopril today. Also she continue with Lasix IV 40 mg twice daily and on heparin drip Ejection fraction showing 30-35% indicate any new onset systolic CHF. Aviation Manager team on board and the plan and on cardiac cath as certain point Pro-calcitonin is normal at 0.09 which goes against pneumonia 08/24/2020 Patient feels better today with no chest pain, her dyspnea much improved, she only have little shortness of breath. Patient looks a pleasant. Patient blood pressure is better improved 128/73 after she was started on metoprolol 50 mg, Aldactone and decrease in dose of lisinopril to 10 mg daily. Labs showed stable creatinine 1.1, mostly related to chronic kidney disease stage III her other than acute kidney injury with mild leukocytosis and doubly seizure on 12 gait. Because of that, to check urine analysis Cardiology team on the case and they recommended cardiac As certain point (coronary artery disease in view of new CHF and elevated troponin although her ginner does not follow a pattern of coronary artery disease this elevation in troponin. Currently patient kept on heparin drip and Lasix 40 mg twice daily Objective - Vital Signs Vital signs: Vital Signs Temp 97.1 F L 08/24/20 12:00 Pulse 97 08/24/20 12:00 Resp 18 08/24/20 12:00 BP 128/73 08/24/20 12:00 Pulse Ox 94 L 08/24/20 12:00 Intake & Output 08/23/20 08/24/20 08/24/20 18:59 06:59 18:59 Intake Total 188.947 240 240 Output Total 1700 Balance 188.947 -1460 240 Weight 67.585 kg 60.2 kg Intake: Intake, IV Titration 138.947 Amount Heparin Sod,Pork in 0.45% 138.947 NaCl 25,000 unit In 0.45 % NaCl 1 250ml.bag @ 12 UNITS/KG/HR 8.11 mls/hr IV .Q24H [facility] Rx#: [id number] Oral 50 240 240 Output: Urine 1700 Other: Voiding Method Toilet Toilet Toilet # Voids 1 - Exam GENERAL: The patient is alert and oriented x3, not in any acute distress. Well developed, well nourished. HEENT: Pupils are round and equally reacting to light. EOMI. No scleral icterus. No conjunctival pallor. Normocephalic, atraumatic. No pharyngeal erythema. No thyromegaly. CARDIOVASCULAR: S1 and S2 present. No murmurs, rubs, or gallops. PULMONARY: Chest is clear to auscultation, no wheezing or crackles. ABDOMEN: Soft, nontender, nondistended, normoactive bowel sounds. No palpable organomegaly. MUSCULOSKELETAL: No joint swelling or deformity. EXTREMITIES: No cyanosis, clubbing, or pedal edema. NEUROLOGICAL: Gross neurological examination did not reveal any focal deficits. SKIN: No rashes. no petechiae. - Labs CBC & Chem 7: 08/24/20 07:39 08/24/20 07:39 Labs: Abnormal Lab Results - Last 24 Hours (Table) 08/23/20 08/24/20 08/24/20 Range/Units 19:21 07:39 07:39 WBC (3.8-10.6) k/uL RBC (3.80-5.40) m/uL Hct (34.0-46.0) % RDW (11.5-15.5) % Neutrophils # (1.3-7.7) k/uL APTT 63.5 H 62.6 H (22.0-30.0) sec Sodium 134 L (137-145) mmol/L Potassium 3.0 L (3.5-5.1) mmol/L Creatinine 1.16 H (0.52-1.04) mg/dL 08/24/20 Range/Units 07:39 WBC 12.2 H (3.8-10.6) k/uL RBC 3.45 L (3.80-5.40) m/uL Hct 33.5 L (34.0-46.0) % RDW 15.6 H (11.5-15.5) % Neutrophils # 9.7 H (1.3-7.7) k/uL APTT (22.0-30.0) sec Sodium (137-145) mmol/L Potassium (3.5-5.1) mmol/L Creatinine (0.52-1.04) mg/dL Microbiology - Last 24 Hours (Table) 08/22/20 14:08 Blood Culture - Preliminary Blood No Growth after 24 hours 08/22/20 14:08 Blood Culture - Preliminary Blood No Growth after 24 hours Assessment and Plan Assessment: Elevated troponin suspicious for non-STEMI Acute systolic CHF, new onset with ejection fraction 30-35% chronic kidney disease stage III hypertensive with urgency upon admission. Trending down COPD, not in acute exacerbation history of bipolar, substance induced bipolar Plan: This is a pleasant 60 years old female who presents with possible non-STEMI, CHF versus pneumonia (less likely and no need for antibiotics) Antibiotics with ceftriaxone and Zithromax, check procalcitonin. Continue with Lasix. Continue with aspirin and heparin drip, cardiology consult. Echocardi ogram. Continue with antihypertensive medication Labs and medication were reviewed.. Continue same treatment. Continue with symptomatic treatment. Resume home medication. Monitor lytes and vitals. DVT and GI prophylaxis. Further recommendations depends on the clinical course of the patient DVT prophylaxis: heparin GI Prophylaxis: Pepcid Prognosis is guarded
[2020-08-24] MEDS: HEPARIN SOD,PORK IN 0.45% NACL 25,000 UNIT in 0.45% NACL 1 250ML.BAG IV SCH (16:29)
[2020-08-24] MEDS: ASCORBIC ACID 500 MG TAB PO SCH (16:29)
[2020-08-24] MEDS: ZINC SULFATE 220 MG CAP PO SCH (16:30)
[2020-08-24] MEDS: CHOLECALCIFEROL 25 MCG (1000 IU) TABLET PO SCH (16:30)
[2020-08-24 17:10] LABS: Appearance,Urine Clear (Clear); Bilirubin,Urine Negative (Negative); Blood,Urine Negative (Negative); Color,Urine Light Yellow; Glucose,Urine (UA) Negative (Negative); Ketones,Urine Negative (Negative); Leukocyte Esterase,Urine Negative (Negative); Nitrite,Urine Negative (Negative); PH, Urine 5.5 (5.0-8.0); Protein,Urine Trace (Negative); Specific Gravity,Urine 1.002 (1.001-1.035); Urobilinogen,Urine <2.0 mg/dL (<2.0)
[2020-08-24] MEDS: LORazepam 1 MG TAB PO PRN (19:35)
[2020-08-24] MEDS: CYCLOBENZAPRINE 5 MG TAB PO PRN (19:35)
[2020-08-25] MEDS: HEPARIN SOD,PORK IN 0.45% NACL 25,000 UNIT in 0.45% NACL 1 250ML.BAG IV SCH (03:24)
[2020-08-25 07:53] LABS: Anisocytosis Slight; Basophils # (A) 0.1 k/uL (0-0.2); Basophils % (A) 1 %; Eosinophils # (A) 0.2 k/uL (0-0.7); Eosinophils % (A) 2 %; HCT 36.4 % (34.0-46.0); HGB 11.5 gm/dL (11.4-16.0); Lymphocytes # (A) 1.7 k/uL (1.0-4.8); Lymphocytes % (A) 17 %; MCH 31.4 pg (25.0-35.0); MCHC 31.6 g/dL (31.0-37.0); MCV 99.6 fL (80.0-100.0); Macrocytosis Slight; Mean Platelet Volume 7.1; Monocytes # (A) 0.7 k/uL (0-1.0); Monocytes % (A) 7 %; Neutrophils # (A) 7.2 k/uL (1.3-7.7); Neutrophils % (A) 72 %; Platelet Count 256 k/uL (150-450); RBC 3.66 m/uL (3.80-5.40); RDW 16.1 % (11.5-15.5)
[2020-08-25 08:15] LABS: Calcium 9.2 mg/dL (8.4-10.2); Magnesium 1.9 mg/dL (1.6-2.3); Potassium 3.3 mmol/L (3.5-5.1)
[2020-08-25] MEDS ORDERED: lisinopriL 10 MG TAB PO SCH (09:00)
[2020-08-25] MEDS: NICOTINE 21MG/24HR PATCH TRANSDERM SCH (10:04)
[2020-08-25] MEDS: FUROSEMIDE 10 MG/ML 4 ML VIAL IV SCH (10:05)
[2020-08-25] MEDS: SPIRONOLACTONE 25 MG TAB PO SCH (10:05)
[2020-08-25] MEDS: ASPIRIN 81 MG PO SCH (10:05)
[2020-08-25] MEDS: METOPROLOL SUCCINATE (ER) 50 MG TAB.ER.24H PO SCH ×2 (10:06→20:12)
[2020-08-25] MEDS ORDERED: Potassium Replacement Protocol 1 EACH MISC MISCELLANE PRN (11:10)
[2020-08-25] MEDS ORDERED: ATORVASTATIN 80 MG TAB PO STA (11:59)
[2020-08-25] MEDS ORDERED: SODIUM CHLORIDE 0.9% 1,000 ML in EMPTY BAG 1 BAG IV ONE (11:59)
[2020-08-25] MEDS ORDERED: ALPRAZolam 0.25 MG TAB PO PRN (11:59)
[2020-08-25] MEDS ORDERED: NITROGLYCERIN SL TABS 0.4 MG TAB SUBLINGUAL PRN (11:59)
[2020-08-25] MEDS ORDERED: ASPIRIN 325 MG TAB PO STA (11:59)
[2020-08-25] MEDS ORDERED: ALPRAZolam 0.5 MG TAB PO PRN (11:59)
[2020-08-25] MEDS: ATORVASTATIN 40 MG TAB PO SCH (12:22)
--- NOTE | 2020-08-25 12:24 | P.PN ---
Subjective This is a 60-year-old female with past medical history of nicotine dependence (1.5 PPD since 26 years old), COPD, former alcohol dependence (quit a few years ago), bipolar disorder. Patient presented to the hospital with symptoms of worsening shortness of breath. She does not see a hot mill roller. Echocardiogram with Doppler study revealed an ejection fraction of 30-35% without any significant wall motion abnormalities. No significant valvular abnormalities. Patient's BNP level also came back to be significantly elevated and her chest x-ray showed pulmonary edema. Patient was initiated on IV Lasix. She denies history of hypertension, ND, stroke, hyperlipidemia. She does not take any cardiac medication. She has never been told she has any cardiac disease. 08/25/20: She diuresed well through the night last night and her weight is down significantly this morning. I/Os urine output 1700mL yesterday and 1000mL today. Blood pressure 156/80 with a heart rate in the 80s-90s, 95% on room air. White blood cell count 10, hemoglobin 11.5, platelet count 256. Sodium 135, potassium 3.3, BUN 17, creatinine 1.11 (1.16 yesterday). Patient is currently being maintained on IV Lasix 40mg BID, heparin drip, lisinopril 10mg daily, Toprol 50mg daily, Aldactone 25mg daily, aspirin 81mg daily. PHYSICAL EXAM: GENERAL: Well-appearing, well-nourished and in no acute distress. NECK: Supple without JVD or thyromegaly. LUNGS: Breath sounds clear to auscultation bilaterally. Respiration equal and unlabored. No wheezes, rales or rhonchi. HEART: Regular rate and rhythm without murmurs, rubs or gallops. S1 and S2 heard. EXTREMITIES: Normal range of motion, no edema. No clubbing or cyanosis. Peripheral pulses intact. ASSESSMENT: Acute systolic heart failure with reduced ejection fraction Cardiomyopathy- unclear etiology, possibly ischemic Nicotine Dependence Former Alcohol Dependence Acute Kidney Injury - improving COPD Hypokalemia- replacing PLAN: -Plan for cardiac catheterization with Dr. Villar tomorrow -I have discussed the risks, benefits and alternative therapies for the above- mentioned procedure and for both sedation/analgesia as well as necessary blood product administration, if indicated, as they pertain to this patient. The patient has indicated understanding and acceptance of the risks and procedures discussed. Questions have been answered appropriately and he is agreeable to move forward with the above-stated procedure. -Continue aspirin, statin, -Transition to PO Lasix today -Increase lisinopril to 10mg bID -increase metoprolol succinate to 50mg BID -Smoking cessation discussed and encouraged with patient Objective - Vital Signs Vital signs: Vital Signs Temp 97.7 F 08/25/20 04:00 Pulse 89 08/25/20 04:00 Resp 16 08/25/20 04:00 BP 156/80 08/25/20 04:00 Pulse Ox 96 08/25/20 04:00 Intake & Output 08/24/20 08/25/20 08/25/20 18:59 06:59 18:59 Intake Total 1690 679.886 89.057 Output Total 400 600 Balance 1290 79.886 89.057 Weight 60 kg Intake: Intake, IV Titration 250 139.886 89.057 Amount Heparin Sod,Pork in 0.45% 250 139.886 89.057 NaCl 25,000 unit In 0.45 % NaCl 1 250ml.bag @ 12 UNITS/KG/HR 8.11 mls/hr IV .Q24H [facility] Rx#: [id number] Oral 1440 540 Output: Urine 400 600 Other: Voiding Method Toilet Toilet # Voids 5 - Labs CBC & Chem 7: 08/25/20 07:21 08/25/20 07:21 Labs: Abnormal Lab Results - Last 24 Hours (Table) 08/24/20 08/25/20 08/25/20 Range/Units Unknown 07:21 07:21 RBC 3.66 L (3.80-5.40) m/uL RDW 16.1 H (11.5-15.5) % APTT (22.0-30.0) sec Sodium 135 L (137-145) mmol/L Potassium 3.3 L (3.5-5.1) mmol/L BUN 18 H (7-17) mg/dL Creatinine 1.11 H (0.52-1.04) mg/dL Urine Protein Trace H (Negative) 08/25/20 Range/Units 07:21 RBC (3.80-5.40) m/uL RDW (11.5-15.5) % APTT 83.5 H (22.0-30.0) sec Sodium (137-145) mmol/L Potassium (3.5-5.1) mmol/L BUN (7-17) mg/dL Creatinine (0.52-1.04) mg/dL Urine Protein (Negative) Microbiology - Last 24 Hours (Table) 08/22/20 14:08 Blood Culture - Preliminary Blood No Growth after 48 hours 08/22/20 14:08 Blood Culture - Preliminary Blood No Growth after 48 hours
[2020-08-25] MEDS: POTASSIUM CHLORIDE ER 20 MEQ TAB.ER PO SCH ×2 (12:50→13:50)
[2020-08-25 12:54] VITALS: BMI 20.1
[2020-08-25] MEDS: CHOLECALCIFEROL 25 MCG (1000 IU) TABLET PO SCH (17:28)
[2020-08-25] MEDS: ASCORBIC ACID 500 MG TAB PO SCH (17:28)
[2020-08-25] MEDS: ZINC SULFATE 220 MG CAP PO SCH (17:28)
--- NOTE | 2020-08-25 19:32 | P.PN ---
Subjective This is a pleasant 60 years old female with past medical history of bipolar, substance induced bipolar. History of COPD. Previous history of alcohol abuse but not anymore and she is on antabuse for many years now. She is a patient of Dr. Ellis. Presents because of one month of progressive exertional dyspnea, no murmur the last 2 days she did not really wanted on moving from the bed to chair and she feels she is going to pass out. She is also complaining of from paroxysmal nocturnal dyspnea and orthopnea over the last 2 days. However she denies chest pain or coughing. No abdominal pain or diarrhea. No nausea vomiting. No urinary complaints like dysuria or urgency or hesitancy Yesterday she has some diarrhea but stopped Over the last month she has been treated with several courses of antibiotics for her right leg infection, UTI and dyspnea by her PCP She used to be alcohol abuse person but stopped now for more than a year. She keeps smokes 1.5 pack per day, she is consult and agrees to quit and she agrees to the nicotine patch. She denies illicit drugs Vitas looks stable, blood pressure was fluctuating 103/62 and 180/89 Leukocytosis of 12.4 K, Hemoglobin 10.6, INR Is Normal 1.1, BMP Is Unremarkable except for Elevated Creatinine 1.1, Her Creatinine 2 Years Ago Was 0.6. Liver Enzymes Not Elevated. Troponin Is High 0.10, [place]BNP [place] 35132 Coronavirus nondetected EKG showed normal sinus rhythm at 92 BPM with no significant ST-T changes Chest x-ray showing COPD with moderate left and small right effusion. Prominent patchy pulmonary edema versus pneumonia in the right mid and lower lung Emergency room patient was given aspirin 325 mg, she was started on Zithromax and ceftriaxone and heparin drip MAPS was checked and patient was prescribed Ativan 1 mg 60 tablets for [address] Ellis last month 08/23/2020 Patient breathing is significantly improved, no chest pain, no coughing. No leg swelling. She is hemodynamically stable, blood pressure is better at 159/83 after metoprolol increased to 50 mg daily. Creatinine is stable at 1.1 and not improvement it might indicate chronic kidney disease stage III. Her WBC is back to normal at 10 K. Other antihypertensive medication added including Aldactone and lisinopril today. Also she continue with Lasix IV 40 mg twice daily and on heparin drip Ejection fraction showing 30-35% indicate any new onset systolic CHF. Liquid Center Assembler team on board and the plan and on cardiac cath as certain point Pro-calcitonin is normal at 0.09 which goes against pneumonia 08/24/2020 Patient feels better today with no chest pain, her dyspnea much improved, she only have little shortness of breath. Patient looks a pleasant. Patient blood pressure is better improved 128/73 after she was started on metoprolol 50 mg, Aldactone and decrease in dose of lisinopril to 10 mg daily. Labs showed stable creatinine 1.1, mostly related to chronic kidney disease stage III her other than acute kidney injury with mild leukocytosis and doubly seizure on 12 gait. Because of that, to check urine analysis Cardiology team on the case and they recommended cardiac As certain point (coronary artery disease in view of new CHF and elevated troponin although her cabinet assembler does not follow a pattern of coronary artery disease this elevation in troponin. Currently patient kept on heparin drip and Lasix 40 mg twice daily 08/25/2020 Patient feels much better today she is very happy and excited and thankful to the staff. No dyspnea only very minimal with exertion, no chest pain, no leg swelling, no coughing or other respiratory symptoms and she is breathing quietly with good saturation on room air. No other GI or urinary symptoms. WBC is back to normal today at 10.0, heparin with PTT therapeutic. Sodium is 135, potassium was slightly low at 33 and creatinine is stable at 1.1 (fourth day since admission indicating it is more of chronic kidney disease rather than acute kidney injury. Blood pressure is better controlled today after adjusting medication, currently she is on metoprolol 50 mg daily, Aldactone, lisinopril dose was increased to 10. Blood pressure currently is 136/77. Urinalysis is not suspicious of infection. Cartilage team are planning for cardiac cath tomorrow with Dr. Lozano. She remains on heparin drip, Lasix wished to 20 mg oral twice daily, it was given IV before. And aspirin dose to 81 mg daily. Objective - Vital Signs Vital signs: Vital Signs Temp 98.0 F 08/25/20 08:00 Pulse 96 08/25/20 08:00 Resp 18 08/25/20 08:00 BP 159/92 08/25/20 08:00 Pulse Ox 94 L 08/25/20 08:00 Intake & Output 08/24/20 08/25/20 08/25/20 18:59 06:59 18:59 Intake Total 1690 679.886 89.057 Output Total 400 600 Balance 1290 79.886 89.057 Weight 60 kg 60 kg Intake: Intake, IV Titration 250 139.886 89.057 Amount Heparin Sod,Pork in 0.45% 250 139.886 89.057 NaCl 25,000 unit In 0.45 % NaCl 1 250ml.bag @ 12 UNITS/KG/HR 8.11 mls/hr IV .Q24H [facility] Rx#: [id number] Oral 1440 540 Output: Urine 400 600 Other: Voiding Method Toilet Toilet # Voids 5 - Exam GENERAL: The patient is alert and oriented x3, not in any acute distress. Well developed, well nourished. HEENT: Pupils are round and equally reacting to light. EOMI. No scleral icterus. No conjunctival pallor. Normocephalic, atraumatic. No pharyngeal erythema. No thyromegaly. CARDIOVASCULAR: S1 and S2 present. No murmurs, rubs, or gallops. PULMONARY: Chest is clear to auscultation, no wheezing or crackles. ABDOMEN: Soft, nontender, nondistended, normoactive bowel sounds. No palpable organomegaly. MUSCULOSKELETAL: No joint swelling or deformity. EXTREMITIES: No cyanosis, clubbing, or pedal edema. NEUROLOGICAL: Gross neurological examination did not reveal any focal deficits. SKIN: No rashes. no petechiae. - Labs CBC & Chem 7: 08/25/20 07:21 08/25/20 07:21 Labs: Abnormal Lab Results - Last 24 Hours (Table) 08/24/20 08/25/20 08/25/20 Range/Units Unknown : 07:21 RBC 3.66 L (3.80-5.40) m/uL RDW 16.1 H (11.5-15.5) % APTT (22.0-30.0) sec Sodium 135 L (137-145) mmol/L Potassium 3.3 L (3.5-5.1) mmol/L BUN 18 H (7-17) mg/dL Creatinine 1.11 H (0.52-1.04) mg/dL Urine Protein Trace H (Negative) 08/25/20 Range/Units 07:21 RBC (3.80-5.40) m/uL RDW (11.5-15.5) % APTT 83.5 H (22.0-30.0) sec Sodium (137-145) mmol/L Potassium (3.5-5.1) mmol/L BUN (7-17) mg/dL Creatinine (0.52-1.04) mg/dL Urine Protein (Negative) Microbiology - Last 24 Hours (Table) 08/22/20 14:08 Blood Culture - Preliminary Blood No Growth after 48 hours 08/22/20 14:08 Blood Culture - Preliminary Blood No Growth after 48 hours Assessment and Plan Assessment: Elevated troponin suspicious for non-STEMI. Acute systolic CHF, new onset with ejection fraction 30-35% chronic kidney disease stage III hypertensive with urgency upon admission. Trending down COPD, not in acute exacerbation history of bipolar, substance induced bipolar Plan: This is a pleasant 60 years old female who presents with possible non-STEMI, CHF , new onset. Plan for patient is to go for cardiac cath tomorrow in the meantime continue with heparin drip, oral Lasix and antihypertensive medication. Labs and medication were reviewed.. Continue same treatment. Continue with symptomatic treatment. Resume home medication. Monitor lytes and vitals. DVT and GI prophylaxis. Further recommendations depends on the clinical course of the patient DVT prophylaxis: heparin GI Prophylaxis: Pepcid Prognosis is guarded
[2020-08-25] MEDS: FUROSEMIDE 20 MG TAB PO SCH (20:12)
[2020-08-25] MEDS: lisinopriL 10 MG TAB PO SCH (20:12)
[2020-08-25] MEDS: LORazepam 1 MG TAB PO PRN (21:37)
[2020-08-25] MEDS: CYCLOBENZAPRINE 5 MG TAB PO PRN (23:09)
[2020-08-26] MEDS: METOPROLOL SUCCINATE (ER) 50 MG TAB.ER.24H PO SCH ×2 (06:18→20:00)
[2020-08-26] MEDS: lisinopriL 10 MG TAB PO SCH ×2 (06:18→20:00)
[2020-08-26] MEDS: ASPIRIN 81 MG PO SCH (06:18)
[2020-08-26] MEDS: ATORVASTATIN 40 MG TAB PO SCH (06:18)
[2020-08-26] MEDS: FUROSEMIDE 20 MG TAB PO SCH (06:18)
[2020-08-26] MEDS: SPIRONOLACTONE 25 MG TAB PO SCH (06:19)
[2020-08-26] MEDS ORDERED: HEPARIN SODIUM,PORCINE 2,500 UNIT in SODIUM CHLORIDE 0.9% 250 ML IRRIGATION PRN (07:00)
[2020-08-26] MEDS ORDERED: HEPARIN SODIUM,PORCINE 10,000 UNIT in SODIUM CHLORIDE 0.9% 1,000 ML IRRIGATION PRN (07:00)
[2020-08-26 08:16] LABS: Calcium 9.1 mg/dL (8.4-10.2); Potassium 3.7 mmol/L (3.5-5.1)
[2020-08-26] MEDS: NICOTINE 21MG/24HR PATCH TRANSDERM SCH (11:01)
[2020-08-26] MEDS ORDERED: IV FLUID CONTINUATION 1,000 ML IV ONE (12:05)
[2020-08-26] MEDS ORDERED: LIDOCAINE 1% INJ 10MG/ML (20 ML MDV) ONE (12:24)
[2020-08-26] MEDS ORDERED: VERAPAMIL 2.5 MG/ML 2 ML AMP ONE (12:24)
[2020-08-26] MEDS ORDERED: LIDOCAINE 1% INJ 10MG/ML (20 ML MDV) SQ ONE (12:39)
[2020-08-26] MEDS ORDERED: MIDAZOLAM 2 MG/2 ML VIAL IV ONE (12:39)
[2020-08-26] MEDS ORDERED: fentaNYL (PF) 50 MCG/ML 2 ML AMP ONE (12:42)
[2020-08-26] MEDS ORDERED: fentaNYL (PF) 50 MCG/ML 2 ML AMP IV ONE (12:43)
[2020-08-26] MEDS ORDERED: VERAPAMIL SYRINGE (5 MG/10 ML) INTRAARTER ONE (12:48)
[2020-08-26] MEDS ORDERED: HEPARIN SODIUM 1,000 UN/ML (10ML VL) ONE (12:48)
[2020-08-26] MEDS ORDERED: HEPARIN SODIUM 1,000 UN/ML (10ML VL) IV ONE (12:49)
[2020-08-26] MEDS ORDERED: IOPAMIDOL-370 125ML BTL INJ ONE (12:54)
[2020-08-26] MEDS ORDERED: RX INFO: IV CONTRAST WAS GIVEN 1 EACH MISC MISCELLANE PRN (13:04)
[2020-08-26] MEDS ORDERED: SODIUM CHLORIDE 0.9% 1,000 ML IV SCH ×2 (13:15→14:00)
--- NOTE | 2020-08-26 14:16 | CC ---
CARDIAC CATHETERIZATION REPORT DATE OF SERVICE: August 26, 2020 PERFORMING PHYSICIAN: Sam Villar MD. PROCEDURE PERFORMED: 1. Selective right and left coronary angiogram. 2. Left heart catheterization. INDICATION: This is a 60-year-old female patient with smoking and history of alcohol abuse, as well as hypertension and dyslipidemia who presented to the hospital with increasing shortness of breath and she was diagnosed with heart failure. She underwent an echocardiogram and that revealed severe cardiomyopathy. Because of that, a heart catheterization was advised. APPROACH: Right radial artery. COMPLICATION: None. LEVEL OF SEDATION: Moderate with sedation length of 17 minutes. PROCEDURE DESCRIPTION: After obtaining an informed consent, the patient was brought to the cardiac lab animal technologist. The right radial artery was cannulated using micropuncture technique and a micropuncture wire passed easily then I placed a 6-Kinyarwanda sheath in the right radial artery. I gave the patient 2 mg of verapamil IA and 5000 units of heparin IV. Selective right and left coronary angiogram performed using JR4 and JL3.5 catheters. Left heart catheterization was performed using the JR4 catheter which crossed the valve then I did pullback across the valve. The procedure was completed without any complication. SELECTIVE CORONARY ANGIOGRAM: 1. The right coronary artery is a medium caliber vessel. It is a nondominant vessel and appeared to be angiographically normal. 2. The left circumflex is a large caliber vessel and it is a dominant vessel. The proximal left circumflex is tortuous but angiographically normal. The mid left circumflex seems to be normal as well and the left circumflex distally is normal and bifurcates into PDA and PLV branches, both appeared to be angiographically normal. 3. The LAD: The proximal and mid LAD are calcified. The proximal LAD has mild disease only. The mid LAD has a focal lesion, appeared to be calcified and seems to be in the range of 50% to 60% only. The LAD distally appeared to be angiographically normal. The LAD gives rise into 2 diagonal branches, both appeared to be angiographically normal. HEMODYNAMICS: The LVEDP was about was about 6 mmHg without significant gradient across the aortic valve. CONCLUSION: 1. Calcified left coronary system. 2. Intermediate lesion involving the proximal to mid LAD appeared to be in the range of 60%. 3. Normal LVEDP. POSTPROCEDURE MANAGEMENT: 1. I advised aggressive cholesterol control as well as risk factors modification including smoking cessation. 2. Consider medical treatment for the lesion in the proximal left mid LAD in view of the absence of chest pain or chest discomfort and the absence of any high-grade stenosis. 3. Follow up with the patient. FAIZAN / YOHANN: [id number] /
[2020-08-26] MEDS: CHOLECALCIFEROL 25 MCG (1000 IU) TABLET PO SCH (17:38)
[2020-08-26] MEDS: ZINC SULFATE 220 MG CAP PO SCH (17:38)
[2020-08-26] MEDS: ASCORBIC ACID 500 MG TAB PO SCH (17:38)
[2020-08-26] MEDS: LORazepam 1 MG TAB PO PRN (20:00)
[2020-08-27 06:47] VITALS: RESP 18
[2020-08-27] MEDS: ASPIRIN 81 MG PO SCH (08:26)
[2020-08-27] MEDS: ATORVASTATIN 40 MG TAB PO SCH (08:26)
[2020-08-27] MEDS: METOPROLOL SUCCINATE (ER) 50 MG TAB.ER.24H PO SCH (08:26)
[2020-08-27] MEDS: SPIRONOLACTONE 25 MG TAB PO SCH (08:26)
[2020-08-27] MEDS: NICOTINE 21MG/24HR PATCH TRANSDERM SCH (08:27)
[2020-08-27] MEDS: lisinopriL 10 MG TAB PO SCH (08:27)
[2020-08-27] MEDS ORDERED: FUROSEMIDE 20 MG TAB PO SCH ×3 (09:00)
[2020-08-27 09:09] LABS: Basophils # (A) 0.1 k/uL (0-0.2); Basophils % (A) 1 %; Eosinophils # (A) 0.2 k/uL (0-0.7); Eosinophils % (A) 3 %; HCT 31.1 % (34.0-46.0); HGB 10.3 gm/dL (11.4-16.0); Lymphocytes # (A) 1.1 k/uL (1.0-4.8); Lymphocytes % (A) 13 %; MCH 32.3 pg (25.0-35.0); MCHC 33.1 g/dL (31.0-37.0); MCV 97.7 fL (80.0-100.0); Mean Platelet Volume 7.6; Monocytes # (A) 0.6 k/uL (0-1.0); Monocytes % (A) 7 %; Neutrophils # (A) 6.3 k/uL (1.3-7.7); Neutrophils % (A) 74 %; Platelet Count 221 k/uL (150-450); RBC 3.18 m/uL (3.80-5.40); RDW 15.2 % (11.5-15.5); WBC 8.5 k/uL (3.8-10.6)
--- NOTE | 2020-08-27 09:20 | P.PN ---
Subjective This is a 60-year-old female with past medical history of nicotine dependence (1.5 PPD since 26 years old), COPD, former alcohol dependence (quit a few years ago), bipolar disorder. Patient presented to the hospital with symptoms of worsening shortness of breath. She does not see a customer engineering specialist. Echocardiogram with Doppler study revealed an ejection fraction of 30-35% without any significant wall motion abnormalities. No significant valvular abnormalities. Patient's BNP level also came back to be significantly elevated and her chest x-ray showed pulmonary edema. She was diuresed with IV lasix. She underwent cardiac catheterization with Dr. Villar yesterday 08/26/2020 which revealed intermediate lesion involving the proximal to mid LAD appeared to be in the range of 60%, LVEDP 6mmHg. Patient is awake, alert and oriented x 3. Vital signs are stable. No complaints. Denies chest pain, shortness of breath, dizziness, lightheadedness. Patient is currently being maintained on Lasix 20mg PO daily, lisinopril 10mg BID, Toprol 50mg BID, Aldactone 25mg daily, aspirin 81mg daily. PHYSICAL EXAM: BP 144/84 HR 84, afebrile, SpO2 96% on room air GENERAL: Well-appearing, well-nourished and in no acute distress. NECK: Supple without JVD or thyromegaly. LUNGS: Breath sounds clear to auscultation bilaterally. Respiration equal and unlabored. No wheezes, rales or rhonchi. HEART: Regular rate and rhythm without murmurs, rubs or gallops. S1 and S2 heard. SKIN: Right radial cath site, clean, open to air, 2+ pulses, no hematoma EXTREMITIES: Normal range of motion, no edema. No clubbing or cyanosis. Peripheral pulses intact. ASSESSMENT: Acute systolic heart failure with reduced ejection fraction Cardiomyopathy- unclear etiology, possibly ischemic Nicotine Dependence Former Alcohol Dependence Acute Kidney Injury - improving COPD Hypokalemia- replacing PLAN: -Continue aspirin and statin -Continue Lisinopril and metoprolol succinate and Aldactone -Lasix decreased to 20mg Daily -Smoking cessation discussed and encouraged with patient -From cardiology perspective, patient is stable for discharge home. -Follow up with Dr. Villar in the office outpatient within 1 week. Objective - Vital Signs Vital signs: Vital Signs Temp 98.3 F 08/27/20 08:00 Pulse 84 04/14/21 08:00 Resp 18 08/27/20 08:00 BP 144/84 08/27/20 08:00 Pulse Ox 96 08/27/20 08:00 Intake & Output 08/26/20 08/27/20 08/27/20 18:59 06:59 18:59 Intake Total 100 0 Balance 100 0 Weight 65 kg Intake: IV 100 Oral 0 Other: Voiding Method Toilet Toilet # Voids 3 1 - Labs CBC & Chem 7: 08/27/20 08:32 08/26/20 06:33 Labs: Microbiology - Last 24 Hours (Table) 08/22/20 14:08 Blood Culture - Preliminary Blood No Growth after 96 hours 08/22/20 14:08 Blood Culture - Preliminary Blood No Growth after 96 hours
[2020-08-27 09:26] LABS: Calcium 9.7 mg/dL (8.4-10.2)
[2020-08-27 09:52] LABS: Potassium 3.8 mmol/L (3.5-5.1)
[2020-08-27 11:51] VITALS: BP 168/79; PULSE 77; TEMP 98.4
[2020-08-27] MEDS ORDERED: lisinopriL 20 MG TAB PO SCH (21:00)
== END 2020-08-27 14:24 | disposition home or self-care (01) | DRG 280 ==
LOC: EC 10:44 → 3SCARD 15:41
PROVIDERS: ADMIT Internal Medicine; ATTEND Internal Medicine
PROC: B2111ZZ Fluoroscopy of Multiple Coronary Arteries using Low Osmolar Contrast (ICD-10-PCS; principal; 2020-08-26 12:00)
PROC: 4A023N7 Measurement of Cardiac Sampling and Pressure, Left Heart, Percutaneous Approach (ICD-10-PCS; principal; 2020-08-26 12:00)
DX: I13.0 Hypertensive heart and chronic kidney disease with heart failure and stage 1 through stage 4 chronic kidney disease, or unspecified chronic kidney disease (principal); I21.4 Non-ST elevation (NSTEMI) myocardial infarction; I50.23 Acute on chronic systolic (congestive) heart failure; J90 Pleural effusion, not elsewhere classified; N17.9 Acute kidney failure, unspecified; J44.1 Chronic obstructive pulmonary disease with (acute) exacerbation; I42.9 Cardiomyopathy, unspecified; N18.30 Chronic kidney disease, stage 3 unspecified; Z20.822 Contact with and (suspected) exposure to COVID-19; E78.5 Hyperlipidemia, unspecified; F31.9 Bipolar disorder, unspecified; F17.210 Nicotine dependence, cigarettes, uncomplicated; F10.21 Alcohol dependence, in remission; I16.0 Hypertensive urgency; E87.6 Hypokalemia; Z83.79 Family history of other diseases of the digestive system; Z79.82 Long term (current) use of aspirin; Z79.899 Other long term (current) drug therapy
CPT/HCPCS: 36415; 71046; 80048; 80053; 80061; 81003; 83605; 83735; 83880; 84145; 84484; 85025; 85610; 85730; 87040; 87635; 93005; 93306; 93458; 99284; 99285

== ENCOUNTER 2022-12-18 18:32 | Emergency (ER) | payer OTHER ==
[2022-12-18] MEDS ORDERED: SODIUM CHLORIDE 0.9% 500 ML 500 ML IV ONE (20:04)
[2022-12-18 20:37] LABS: Basophils # (A) 0.1 k/uL (0-0.2); Basophils % (A) 1 %; Eosinophils # (A) 0.3 k/uL (0-0.7); Eosinophils % (A) 3 %; HCT 31.8 % (34.0-46.0); HGB 10.7 gm/dL (11.4-16.0); Lymphocytes % (A) 23 %; MCHC 33.6 g/dL (31.0-37.0); MCV 98.1 fL (80.0-100.0); Mean Platelet Volume 7.3; Monocytes # (A) 0.7 k/uL (0-1.0); Monocytes % (A) 8 %; Neutrophils # (A) 5.3 k/uL (1.3-7.7); Neutrophils % (A) 61 %; Platelet Count 276 k/uL (150-450); RBC 3.24 m/uL (3.80-5.40); RDW 13.7 % (11.5-15.5); WBC 8.7 k/uL (3.8-10.6)
[2022-12-18 20:48] LABS: Partial Thromboplastin Time 27.5 sec (22.0-30.0); Prothrombin Time 10.2 sec (9.0-12.0)
[2022-12-18 22:52] LABS: Appearance,Urine Clear (Clear); Bilirubin,Urine Negative (Negative); Blood,Urine Negative (Negative); Color,Urine Colorless; Glucose,Urine (UA) Negative (Negative); Ketones,Urine Negative (Negative); Leukocyte Esterase,Urine Negative (Negative); Nitrite,Urine Negative (Negative); PH, Urine 6.5 (5.0-8.0); Protein,Urine Negative (Negative); Specific Gravity,Urine 1.004 (1.001-1.035); Urobilinogen,Urine <2.0 mg/dL (<2.0)
--- NOTE | 2022-12-18 23:02 | XR ---
EXAMINATION TYPE: XR chest 2V DATE OF EXAM: 12/18/2022 COMPARISON: 08/22/2020 HISTORY: Fatigue, cough TECHNIQUE: 2 view chest FINDINGS: Heart size is normal. Pulmonary vasculature is normal. Minimal right pleural effusion may b e present with blunting of costophrenic angles. There is mild hyperinflation present. Correlate for C OPD IMPRESSION: 1. Small right pleural effusion. 2. COPD
[2022-12-18 23:31] LABS: ALT 15 U/L (4-34); AST 22 U/L (14-36); African American GFR (CKD) 43 (>60 ml/min/1.73 sqM); Albumin 3.4 g/dL (3.5-5.0); Alkaline Phosphatase 86 U/L (38-126); Anion Gap 7 mmol/L; Blood Urea Nitrogen 24 mg/dL (7-17); Calcium 9.3 mg/dL (8.4-10.2); Carbon Dioxide 21 mmol/L (22-30); Chloride 102 mmol/L (98-107); Glucose 113 mg/dL (74-99); Non-African American GFR(CKD) 37 (>60 ml/min/1.73 sqM); Potassium 4.7 mmol/L (3.5-5.1); Sodium 130 mmol/L (137-145); Total Bilirubin 0.3 mg/dL (0.2-1.3); Total Protein 6.7 g/dL (6.3-8.2)
[2022-12-18] MEDS ORDERED: SODIUM CHLORIDE 0.9% 1,000 ML IV ONE (23:44)
[2022-12-19] MEDS ORDERED: AZITHROMYCIN 250 MG TAB PO STA (00:03)
--- NOTE | 2022-12-19 00:03 | ED ---
General Adult HPI - General Chief complaint: Shortness of Breath Stated complaint: Weakness,SOB Time Seen by Provider: 12/18/22 19:44 Source: patient, RN notes reviewed Mode of arrival: ambulatory Limitations: no limitations - History of Present Illness Initial comments: 62-year-old female with past medical history significant for CHF and COPD presents to the emergency department with a chief complaint of increased weakness and fatigue. She reports increased weakness for the last 3 weeks. She denies any recent sick contacts. She does report that she has a dry cough with no sputum production. She denies any known fevers, chills, sore throat, nausea, vomiting, chest pain. She did not take anything she denies any swelling in her legs. She takes her medications as prescribed. Is a current every day tobacco products smoker - Related Data Home Medications Medication Instructions Recorded Confirmed LORazepam [Ativan] 1 mg PO BID PRN 03/10/18 08/22/20 Multivitamin/Iron/Folic Acid 1 tab PO AC-SUPPER 03/10/18 08/22/20 [Centrum Complete Multivit Tab] Ascorbic Acid [Vitamin C] 1,000 mg PO AC-SUPPER 08/22/20 08/22/20 Aspirin EC [Ecotrin Low Dose] 81 mg PO DAILY 08/22/20 08/22/20 Cholecalciferol [Vitamin D3 (25 50 mcg PO AC-SUPPER 08/22/20 08/22/20 Mcg = 1000 Iu)] Cyclobenzaprine [Flexeril] 5 mg PO TID PRN 08/22/20 08/22/20 Zinc Gluconate [Zinc] 50 mg PO AC-SUPPER 08/22/20 08/22/20 Previous Rx's Medication Instructions Recorded Atorvastatin [Lipitor] 40 mg PO DAILY #30 tab 08/27/20 Furosemide [Lasix] 20 mg PO DAILY #30 tab 08/27/20 Metoprolol Succinate (ER) [Toprol 50 mg PO BID #60 tab.er.24h 08/27/20 XL] Nitroglycerin Sl Tabs [Nitrostat] 0.4 mg SUBLINGUAL Q5M PRN #30 tab 08/27/20 Spironolactone [Aldactone] 25 mg PO DAILY #30 tab 08/27/20 lisinopriL [Zestril] 10 mg PO BID #60 tab 08/27/20 Azithromycin [Zithromax Z Pack] 0 tab PO DIRECTED #6 tab 12/19/22 predniSONE 50 mg PO DAILY #5 tab 12/19/22 Allergies Allergy/AdvReac Type Severity Reaction Status Date / Time No Known Allergies Allergy Verified 12/18/22 18:43 Review of Systems ROS Statement: Those systems with pertinent positive or pertinent negative responses have been documented in the HPI. ROS Other: All systems not noted in ROS Statement are negative. Past Medical History Past Medical History: Heart Failure, COPD, Pneumonia Additional Past Medical History / Comment(s): Former Alcohol Dependence. no drinkning last 2 years. History of Any Multi-Drug Resistant Organisms: None Reported Past Surgical History: Section Past Psychological History: No Psychological Hx Reported Smoking Status: Former smoker Past Alcohol Use History: None Reported Past Drug Use History: None Reported - Past Family History Mother Additional Family Medical History / Comment(s): Mother is alive at age 91 with no major medical problems. Father Additional Family Medical History / Comment(s): Father in his 70s from non- A non-B hepatitis Sister(s) Additional Family Medical History / Comment(s): She has one sister with no major medical problems. Patient does not have any brothers. Daughter(s) Additional Family Medical History / Comment(s): Patient has one daughter with no major medical problems. Patient does not have any sons. General Exam - General Exam Comments Initial Comments: General: Alert, in no acute distress Head: atraumatic normocephalic. Eyes PERRL, EOMI intact, mucous membranes moist Respiratory: Lungs clear to auscultation bilaterally Cardiovascular: Heart rate regular rate and rhythm Abdominal: Soft without guarding or rebound Extremities: Normal inspection with full range of motion and normal capillary refill Neuroogic: alert and oriented 3, CN II-XII intact, able to ambulate with steady gait Skin: warm dry and intact with normal color Limitations: no limitations Course Vital Signs 12/18/22 12/18/22 12/18/22 18:41 19:00 19:30 Temperature 97.9 F Pulse Rate 59 L 61 Respiratory 20 24 16 Rate Blood Pressure 168/84 O2 Sat by Pulse 97 99 Oximetry 12/18/22 12/18/22 12/18/22 19:57 20:00 20:30 Temperature Pulse Rate 65 61 Respiratory 18 18 9 L Rate Blood Pressure 145/81 145/81 O2 Sat by Pulse 96 99 Oximetry 12/18/22 12/19/22 21:00 00:38 Temperature 98.3 F Pulse Rate 89 Respiratory 17 Rate Blood Pressure 150/79 155/68 O2 Sat by Pulse 97 99 Oximetry Medical Decision Making - Medical Decision Making Was pt. sent in by a medical professional or institution (MISHA Waller, PRODUCTION ASSEMBLY OPERATOR, urgent care, hospital, or care home...) When possible be specific @ -[No] Did you speak to anyone other than the patient for history (EMS, parent, family, police, friend...)? What history was obtained from this source @ - Did you review nursing and triage notes (agree or disagree)? Why? @ -[I reviewed and agree with nursing and triage notes] Were old charts reviewed (outside hosp., previous admission, EMS record, old EKG, old radiological studies, urgent care reports/EKG's, care home records)? Report findings @ -[No old charts were reviewed] Differential Diagnosis (chest pain, altered mental status, abdominal pain women, abdominal pain men, vaginal bleeding, weakness, fever, dyspnea, syncope, headache, dizziness, GI bleed, back pain, seizure, CVA, palpatations, mental health, musculoskeletal)? @ -[not applicable] EKG interpreted by me (3pts min.). @ -[As above] X-rays interpreted by me (1pt min.). @ - CXR reveals Small right pleural effusion, COPD changes CT interpreted by me (1pt min.). @ -[None done] U/S interpreted by me (1pt. min.). @ -[None done] What testing was considered but not performed or refused? (CT, X-rays, U/S, labs)? Why? @ -[None] What meds were considered but not given or refused? Why? @ -[None] Did you discuss the management of the patient with other professionals (professionals i.e. MISHA Waller, PRODUCTION ASSEMBLY OPERATOR, lab, RT, psych nurse, social work nurse, electronic field service engineer, teacher, senior escrow officer, case preparer and liner)? Give summary @ -[No] Was smoking cessation discussed for >3mins.? @ -[No] Was critical care preformed (if so, how long)? @ -[No] Were there social determinants of health that impacted care today? How? (Homelessness, low income, unemployed, alcoholism, drug addiction, transportation, low edu. Level, literacy, decrease access to med. care, senior care, rehab)? @ -[No] Was there de-escalation of care discussed even if they declined (Discuss DNR or withdrawal of care, Hospice)? DNR status @ -[No] What co-morbidities impacted this encounter? (DM, HTN, Smoking, COPD, CAD, Cancer, CVA, ARF, Chemo, Hep., AIDS, mental health diagnosis, sleep apnea, morbid obesity)? @ -[None] Was patient admitted / discharged? Hospital course, mention meds given and route, prescriptions, significant lab abnormalities, going to OR and other pertinent info. @ -Discharged. This is a pleasant 62-year-old female who presents emergency Department with fatigue . Patient had a thorough history and physical exam performed on the ED. Physical exam is essentially unremarkable. Heart rate regular rate and rhythm, lungs clear to auscultation bilaterally, abdomen s oft without tenderness. He should had lab work and imaging which were essentially unremarkable. Chest x-ray negative for any evidence of consolidation or pneumonia. I discussed the results in detail with the patient verbalized understanding and all questions were addressed. She was given a 1 L IV with symptomatic relief in the emergency department. Patient was given a prescription for azithromycin and prednisone. Return precautions were discussed at length with recommend close follow-up with PCP in 1-2 days. Patient will be discharged in stable condition Case discussed with Dr. Burr who agrees with plan of care Undiagnosed new problem with uncertain prognosis? @ -[No] Drug Therapy requiring intensive monitoring for toxicity (Heparin, Nitro, Insulin, Cardizem)? @ -[No] Were any procedures done? @ -[No] Diagnosis/symptom? @ -fatigue - Bronchitis - Hx of COPD Acute, or Chronic, or Acute on Chronic? @ -Acute Uncomplicated (without systemic symptoms) or Complicated (systemic symptoms)? @ -uncomplicated Side effects of treatment? @ -[No] Exacerbation, Progression, or Severe Exacerbation? @ -[No] Poses a threat to life or bodily function? How? (Chest pain, [place], [place], pneumonia, PE, COPD, DKA, ARF, appy, cholecystitis, CVA, Diverticulitis, Homicidal, Suicidal, threat to staff... and all critical care pts) @ -low likelihood - Lab Data Result diagrams: 12/18/22 20:04 12/18/22 20:20 Lab Results 12/18/22 12/18/22 12/18/22 Range/Units 20:04 20:10 20:10 WBC 8.7 (3.8-10.6) k/uL RBC 3.24 L (3.80-5.40) m/uL Hgb 10.7 L (11.4-16.0) gm/dL Hct 31.8 L (34.0-46.0) % MCV 98.1 (80.0-100.0) fL MCH 33.0 (25.0-35.0) pg MCHC 33.6 (31.0-37.0) g/dL RDW 13.7 (11.5-15.5) % Plt Count 276 (150-450) k/uL MPV 7.3 Neutrophils % 61 % Lymphocytes % 23 % Monocytes % 8 % Eosinophils % 3 % Basophils % 1 % Neutrophils # 5.3 (1.3-7.7) k/uL Lymphocytes # 2.0 (1.0-4.8) k/uL Monocytes # 0.7 (0-1.0) k/uL Eosinophils # 0.3 (0-0.7) k/uL Basophils # 0.1 (0-0.2) k/uL PT 10.2 (9.0-12.0) sec INR 1.0 (<1.2) APTT 27.5 (22.0-30.0) sec Sodium (137-145) mmol/L Potassium (3.5-5.1) mmol/L Chloride (98-107) mmol/L Carbon Dioxide (22-30) mmol/L Anion Gap mmol/L BUN (7-17) mg/dL Creatinine (0.52-1.04) mg/dL Est GFR (CKD-EPI)AfAm (>60 ml/min/1.73 sqM) Est GFR (CKD-EPI)NonAf (>60 ml/min/1.73 sqM) Glucose (74-99) mg/dL Plasma Lactic Acid Arron (0.7-2.0) mmol/L Calcium (8.4-10.2) mg/dL Total Bilirubin (0.2-1.3) mg/dL AST (14-36) U/L ALT (4-34) U/L Alkaline Phosphatase (38-126) U/L Troponin I (0.000-0.034) ng/mL NT-Pro-B Natriuret Pep pg/mL Total Protein (6.3-8.2) g/dL Albumin (3.5-5.0) g/dL Urine Color Urine Appearance (Clear) Urine pH (5.0-8.0) Ur Specific [place] (1.001-1.035) Urine Protein (Negative) Urine Glucose (UA) (Negative) Urine Ketones (Negative) Urine Blood (Negative) Urine Nitrite (Negative) Urine Bilirubin (Negative) Urine Urobilinogen (<2.0) mg/dL Ur Leukocyte Esterase (Negative) Influenza Type A (PCR) Not Detected (Not Detectd) Influenza Type B (PCR) Not Detected (Not Detectd) RSV (PCR) Not Detected (Not Detectd) SARS-CoV-2 (PCR) Not Detected (Not Detectd) 12/18/22 12/18/22 12/18/22 Range/Units 20:10 20:10 20:10 WBC (3.8-10.6) k/uL RBC (3.80-5.40) m/uL Hgb (11.4-16.0) gm/dL Hct (34.0-46.0) % MCV (80.0-100.0) fL MCH (25.0-35.0) pg MCHC (31.0-37.0) g/dL RDW (11.5-15.5) % Plt Count (150-450) k/uL MPV Neutrophils % % Lymphocytes % % Monocytes % % Eosinophils % % Basophils % % Neutrophils # (1.3-7.7) k/uL Lymphocytes # (1.0-4.8) k/uL Monocytes # (0-1.0) k/uL Eosinophils # (0-0.7) k/uL Basophils # (0-0.2) k/uL PT (9.0-12.0) sec INR (<1.2) APTT (22.0-30.0) sec Sodium (137-145) mmol/L Potassium (3.5-5.1) mmol/L Chloride (98-107) mmol/L Carbon Dioxide (22-30) mmol/L Anion Gap mmol/L BUN (7-17) mg/dL Creatinine (0.52-1.04) mg/dL Est GFR (CKD-EPI)AfAm (>60 ml/min/1.73 sqM) Est GFR (CKD-EPI)NonAf (>60 ml/min/1.73 sqM) Glucose (74-99) mg/dL Plasma Lactic Acid Arron 0.5 L (0.7-2.0) mmol/L Calcium (8.4-10.2) mg/dL Total Bilirubin (0.2-1.3) mg/dL AST (14-36) U/L ALT (4-34) U/L Alkaline Phosphatase (38-126) U/L Troponin I <0.012 (0.000-0.034) ng/mL NT-Pro-B Natriuret Pep pg/mL Total Protein (6.3-8.2) g/dL Albumin (3.5-5.0) g/dL Urine Color Colorless Urine Appearance Clear (Clear) Urine pH 6.5 (5.0-8.0) Ur Specific [place] 1.004 (1.001-1.035) Urine Protein Negative (Negative) Urine Glucose (UA) Negative (Negative) Urine Ketones Negative (Negative) Urine Blood Negative (Negative) Urine Nitrite Negative (Negative) Urine Bilirubin Negative (Negative) Urine Urobilinogen <2.0 (<2.0) mg/dL Ur Leukocyte Esterase Negative (Negative) Influenza Type A (PCR) (Not Detectd) Influenza Type B (PCR) (Not Detectd) RSV (PCR) (Not Detectd) SARS-CoV-2 (PCR) (Not Detectd) 12/18/22 12/18/22 Range/Units 20:10 20:20 WBC (3.8-10.6) k/uL RBC (3.80-5.40) m/uL Hgb (11.4-16.0) gm/dL Hct (34.0-46.0) % MCV (80.0-100.0) fL MCH (25.0-35.0) pg MCHC (31.0-37.0) g/dL RDW (11.5-15.5) % Plt Count (150-450) k/uL MPV Neutrophils % % Lymphocytes % % Monocytes % % Eosinophils % % Basophils % % Neutrophils # (1.3-7.7) k/uL Lymphocytes # (1.0-4.8) k/uL Monocytes # (0-1.0) k/uL Eosinophils # (0-0.7) k/uL Basophils # (0-0.2) k/uL PT (9.0-12.0) sec INR (<1.2) APTT (22.0-30.0) sec Sodium 130 L (137-145) mmol/L Potassium 4.7 (3.5-5.1) mmol/L Chloride 102 (98-107) mmol/L Carbon Dioxide 21 L (22-30) mmol/L Anion Gap 7 mmol/L BUN 24 H (7-17) mg/dL Creatinine 1.48 H (0.52-1.04) mg/dL Est GFR (CKD-EPI)AfAm 43 (>60 ml/min/1.73 sqM) Est GFR (CKD-EPI)NonAf 37 (>60 ml/min/1.73 sqM) Glucose 113 H (74-99) mg/dL Plasma Lactic Acid Arron (0.7-2.0) mmol/L Calcium 9.3 (8.4-10.2) mg/dL Total Bilirubin 0.3 (0.2-1.3) mg/dL AST 22 (14-36) U/L ALT 15 (4-34) U/L Alkaline Phosphatase 86 (38-126) U/L Troponin I (0.000-0.034) ng/mL NT-Pro-B Natriuret Pep 596 pg/mL Total Protein 6.7 (6.3-8.2) g/dL Albumin 3.4 L (3.5-5.0) g/dL Urine Color Urine Appearance (Clear) Urine pH (5.0-8.0) Ur Specific [place] (1.001-1.035) Urine Protein (Negative) Urine Glucose (UA) (Negative) Urine Ketones (Negative) Urine Blood (Negative) Urine Nitrite (Negative) Urine Bilirubin (Negative) Urine Urobilinogen (<2.0) mg/dL Ur Leukocyte Esterase (Negative) Influenza Type A (PCR) (Not Detectd) Influenza Type B (PCR) (Not Detectd) RSV (PCR) (Not Detectd) SARS-CoV-2 (PCR) (Not Detectd) Disposition Clinical Impression: Bronchitis, COPD (chronic obstructive pulmonary disease) Disposition: HOME SELF-CARE Condition: Stable Instructions (If sedation given, give patient instructions): Acute Bronchitis (ED) Additional Instructions: Please take antibiotics as prescribed Please return to the nearest emergency department symptoms worsen or persist Prescriptions: predniSONE 50 mg PO DAILY #5 tab Azithromycin [Zithromax Z Pack] 0 tab PO DIRECTED #6 tab Is patient prescribed a controlled substance at d/c from ED?: No Referrals: Carlos Eduardo Ellis MD [Primary Care Provider] - 1-2 days Time of Disposition: 00:03
[2022-12-19] MEDS ORDERED: predniSONE 50 MG TAB PO STA (00:04)
[2022-12-19 00:39] VITALS: BP 155/68; PULSE 89; RESP 17; TEMP 98.3
== END 2022-12-19 00:39 | disposition home or self-care (01) ==
LOC: EC 18:32
DX: J44.9 Chronic obstructive pulmonary disease, unspecified (principal); R53.83 Other fatigue; I50.9 Heart failure, unspecified; Z20.822 Contact with and (suspected) exposure to COVID-19; Z79.82 Long term (current) use of aspirin; Z79.899 Other long term (current) drug therapy; Z87.891 Personal history of nicotine dependence
CPT/HCPCS: 36415; 93005; 83880; 80053; 83605; 84484; 85025; 85610; 85730; 81003; 87636; 71046; 99285; 96360; 96361 ×2; J7512

== ENCOUNTER 2023-09-09 18:59 | Inpatient (IN) | payer BC, OTHER ==
--- NOTE | 2023-09-09 20:15 | ED ---
General Adult HPI - General Chief complaint: Psychiatric Symptoms Stated complaint: Petition Time Seen by Provider: 09/09/23 19:59 Source: police Mode of arrival: ambulatory Limitations: no limitations - History of Present Illness Initial comments: Dictation was produced using [employer] dictation software. please excuse any grammatical, word or spelling errors. Chief Complaint: 63-year-old female presents for mental health evaluation History of Present Illness: Patient 63-year-old female presents from home with law enforcement. Patient had a pickup order. Patient apparently has been having psychotic behavior for the last 6 to 7 days according to significant other. Apparently 6 weeks ago patient's daughter . Over the last 10 days patient has been having worsening cardiac symptoms. She has been having signs of insomnia, delusions. Patient has history of psychiatric admission in the past. Patient poor historian. reports that he did not notice patient complaining of anything physically. Apparently she has a history of cardiac disease. The ROS documented in this emergency department record has been reviewed and co nfirmed by me. Those systems with pertinent positive or negative responses have been documented in the HPI. All other systems are other negative and/or noncontributory. - Related Data Home Medications Medication Instructions Recorded Confirmed Ammonium Lactate Lotion 1 applic TOPICAL DAILY 09/10/23 09/10/23 [Lac-Hydrin 12% Lotion] Previous Rx's Medication Instructions Recorded ARIPiprazole [Abilify] 10 mg PO DAILY 30 Days #30 tab 09/15/23 Benzocaine/Menthol Lozeng [Cepacol 1 each MUCOUS MEM Q4HR PRN lozenge 09/15/23 lozenge] Lovastatin [Mevacor] 20 mg PO W/SUPPER 30 Days #30 tab 09/15/23 Metoprolol Tartrate [Lopressor] 50 mg PO BID-W/MEALS 30 Days #60 09/15/23 tab Multivitamins, Thera [Multivitamin 1 each PO DAILY 30 Days #30 tab 09/15/23 (formulary)] Nicotine 14Mg/24Hr Patch [Habitrol] 1 patch TRANSDERM DAILY 14 Days 09/15/23 #14 patch Sacubitril/Valsartan [Entresto 24 1 tab PO BID 30 Days #30 tab 09/15/23 mg-26 mg Tablet] amLODIPine [Norvasc] 10 mg PO DAILY 30 Days #30 tablet 09/15/23 guaiFENesin SYRUP 100MG/5ML 200 mg PO Q6HR PRN ml 09/15/23 [Robitussin] hydrOXYzine HCL [Atarax] 50 mg PO DAILY PRN 30 Days #60 tab 09/15/23 traZODone HCL [Desyrel] 50 mg PO HS PRN 30 Days #30 tab 09/15/23 Allergies Allergy/AdvReac Type Severity Reaction Status Date / Time No Known Allergies Allergy Verified 09/09/23 21:34 Review of Systems ROS Statement: Those systems with pertinent positive or pertinent negative responses have been documented in the HPI. ROS Other: All systems not noted in ROS Statement are negative. Past Medical History Past Medical History: Heart Failure, COPD, Pneumonia Additional Past Medical History / Comment(s): Former Alcohol Dependence. no drinkning last 2 years. History of Any Multi-Drug Resistant Organisms: None Reported Past Surgical History: Section Past Psychological History: No Psychological Hx Reported Smoking Status: Former smoker Past Alcohol Use History: None Reported Past Drug Use History: None Reported - Past Family History Mother Additional Family Medical History / Comment(s): Mother is alive at age 91 with no major medical problems. Father Additional Family Medical History / Comment(s): Father in his 70s from non- A non-B hepatitis Sister(s) Additional Family Medical History / Comment(s): She has one sister with no major medical problems. Patient does not have any brothers. Daughter(s) Additional Family Medical History / Comment(s): Patient has one daughter with no major medical problems. Patient does not have any sons. General Exam - General Exam Comments Initial Comments: General: Well-appearing, nontoxic, no acute distress. Head: Normocephalic, atraumatic Eyes: PERRLA, EOMI ENT: Airway patent Chest: Nonlabored breathing Skin: No visual rash, normal skin tone Neuro: Alert and oriented 3 Musculoskeletal: No gross abnormalities Psychiatric: Tangential speech, delusional Limitations: no limitations Course Vital Signs 09/09/23 09/09/23 09/09/23 19:24 22:21 22:45 Temperature 98.2 F Pulse Rate 97 94 Respiratory 20 Rate Blood Pressure 224/91 180/92 O2 Sat by Pulse 94 L 97 Oximetry 09/10/23 09/10/23 06:00 09:45 Temperature 98.3 F Pulse Rate 105 H 99 Respiratory 18 17 Rate Blood Pressure 160/77 137/67 O2 Sat by Pulse 98 96 Oximetry Medical Decision Making - Medical Decision Making Was pt. sent in by a medical professional or institution (, PA, PRESSROOM FOREMAN, urgent care, hospital, or residential...) When possible be specific @ -No Did you speak to anyone other than the patient for history (EMS, parent, family, police, friend...)? What history was obtained from this source @ -See above Did you review nursing and triage notes (agree or disagree)? Why? @ -I reviewed and agree with nursing and triage notes Were old charts reviewed (outside hosp., previous admission, EMS record, old EKG, old radiological studies, urgent care reports/EKG's, residential records)? Report findings @ -Edition documents reviewed Differential Diagnosis (chest pain, altered mental status, abdominal pain women, abdominal pain men, vaginal bleeding, musculoskeletal, weakness, fever, dyspnea, syncope, headache, dizziness, GI bleed, back pain, seizure, CVA, palpatations, mental health)? @ -Differential Mental Health: Depression, anxiety, bipolar, psychosis, schizophrenia, borderline personality, situational depression, adjustment disorder, behavioral disorder, brain tumor, malingering, substance abuse, encephalopathy, medication reaction, dementia, hypothyroidism, degenerative neurologic disorder, lupus.... This is not meant to be all-inclusive list EKG interpreted by me (3pts min.). @ -None done X-rays interpreted by me (1pt min.). @ -None done CT interpreted by me (1pt min.). @ -None done U/S interpreted by me (1pt. min.). @ -None done What testing was considered but not performed or refused? (CT, X-rays, U/S, labs)? Why? @ -None What meds were considered but not given or refused? Why? @ -None Did you discuss the management of the patient with other professionals (professionals i.e. , MISHA, PRESSROOM FOREMAN, lab, RT, psych nurse, health and social care teacher, blood typer, teacher, home school liaison officer, director of casework)? Give summary @ -No Was smoking cessation discussed for >3mins.? @ -No Was critical care preformed (if so, how long)? @ -No Were there social determinants of health that impacted care today? How? (Homelessness, low income, unemployed, alcoholism, drug addiction, transportation, low edu. Level, literacy, decrease access to med. care, nursing home, rehab)? @ -No Was there de-escalation of care discussed even if they declined (Discuss DNR or withdrawal of care, Hospice)? DNR status @ -No What co-morbidities impacted this encounter? (DM, HTN, Smoking, COPD, CAD, Cancer, CVA, ARF, Chemo, Hep., AIDS, mental health diagnosis, sleep apnea, morbid obesity)? @ -None Was patient admitted / discharged? Hospital course, mention meds given and route, prescriptions, significant lab abnormalities, going to OR and other pertinent info. @ -63-year-old female presents emergency department for mental-health evaluation. Patient has history of psychiatric illness and psychiatric hospitalization. Vital signs upon arrival. Physical examination benign. Patient medically cleared for EPS evaluation. Patient will be admitted to mental health unit. Undiagnosed new problem with uncertain prognosis? @ -No Drug Therapy requiring intensive monitoring for toxicity (Heparin, Nitro, Insulin, Cardizem)? @ -No Were any procedures done? @ -No Diagnosis/symptom? Acute, or Chronic, or Acute on Chronic? Uncomplicated (without systemic symptoms) or Complicated (systemic symptoms)? @ -Acute psychosis Side effects of treatment? @ -No Exacerbation, Progression, or Severe Exacerbation? @ -No Poses a threat to life or bodily function? How? (Chest pain, USA, MA, pneumonia, PE, COPD, DKA, ARF, appy, cholecystitis, CVA, Diverticulitis, Homicidal, Suicidal, threat to staff... and all critical care pts) @ -yes - Lab Data Result diagrams: 09/13/23 11:03 09/13/23 11:03 Lab Results 09/09/23 09/09/23 09/09/23 Range/Units 21:26 22:11 22:11 WBC 12.8 H (3.8-10.6) k/uL RBC 3.05 L (3.80-5.40) m/uL Hgb 8.9 L (11.4-16.0) gm/dL Hct 28.9 L (34.0-46.0) % MCV 94.8 (80.0-100.0) fL MCH 29.3 (25.0-35.0) pg MCHC 30.9 L (31.0-37.0) g/dL RDW 14.4 (11.5-15.5) % Plt Count 329 (150-450) k/uL MPV 8.6 Neutrophils % 78 % Lymphocytes % 12 % Monocytes % 6 % Eosinophils % 1 % Basophils % 1 % Neutrophils # 10.0 H (1.3-7.7) k/uL Lymphocytes # 1.5 (1.0-4.8) k/uL Monocytes # 0.8 (0-1.0) k/uL Eosinophils # 0.1 (0-0.7) k/uL Basophils # 0.1 (0-0.2) k/uL Sodium 137 (137-145) mmol/L Potassium 5.0 (3.5-5.1) mmol/L Chloride 107 (98-107) mmol/L Carbon Dioxide 19 L (22-30) mmol/L Anion Gap 11 mmol/L BUN 39 H (7-17) mg/dL Creatinine 2.27 H (0.52-1.04) mg/dL Est GFR (CKD-EPI)AfAm 25 (>60 ml/min/1.73 sqM) Est GFR (CKD-EPI)NonAf 22 (>60 ml/min/1.73 sqM) Glucose 74 (74-99) mg/dL Estimated Ave Glu mg/dL mg/dL Hemoglobin A1c (<=6.0) % Calcium 9.4 (8.4-10.2) mg/dL Total Bilirubin 0.3 (0.2-1.3) mg/dL AST 49 H (14-36) U/L ALT 25 (4-34) U/L Alkaline Phosphatase 103 (38-126) U/L Total Protein 6.9 (6.3-8.2) g/dL Albumin 4.2 (3.5-5.0) g/dL Triglycerides (0.00-149.00) mg/dL Cholesterol (0.00-200.00) mg/dL LDL Cholesterol, Calc (0.0-131.0) mg/dL VLDL Cholesterol, Calc (5.00-40.00) mg/dL HDL Cholesterol (40.00-60.00) mg/dL Cholesterol/HDL Ratio Ratio TSH (0.465-4.680) mIU/L SARS-CoV-2 (PCR) Not Detected (Not Detectd) 09/09/23 09/09/23 Range/Units 22:11 22:11 WBC (3.8-10.6) k/uL RBC (3.80-5.40) m/uL Hgb (11.4-16.0) gm/dL Hct (34.0-46.0) % MCV (80.0-100.0) fL MCH (25.0-35.0) pg MCHC (31.0-37.0) g/dL RDW (11.5-15.5) % Plt Count (150-450) k/uL MPV Neutrophils % % Lymphocytes % % Monocytes % % Eosinophils % % Basophils % % Neutrophils # (1.3-7.7) k/uL Lymphocytes # (1.0-4.8) k/uL Monocytes # (0-1.0) k/uL Eosinophils # (0-0.7) k/uL Basophils # (0-0.2) k/uL Sodium (137-145) mmol/L Potassium (3.5-5.1) mmol/L Chloride (98-107) mmol/L Carbon Dioxide (22-30) mmol/L Anion Gap mmol/L BUN (7-17) mg/dL Creatinine (0.52-1.04) mg/dL Est GFR (CKD-EPI)AfAm (>60 ml/min/1.73 sqM) Est GFR (CKD-EPI)NonAf (>60 ml/min/1.73 sqM) Glucose (74-99) mg/dL Estimated Ave Glu mg/dL 103 mg/dL Hemoglobin A1c 5.2 (<=6.0) % Calcium (8.4-10.2) mg/dL Total Bilirubin (0.2-1.3) mg/dL AST (14-36) U/L ALT (4-34) U/L Alkaline Phosphatase (38-126) U/L Total Protein (6.3-8.2) g/dL Albumin (3.5-5.0) g/dL Triglycerides 72.20 (0.00-149.00) mg/dL Cholesterol 118.00 (0.00-200.00) mg/dL LDL Cholesterol, Calc 35.1 (0.0-131.0) mg/dL VLDL Cholesterol, Calc 14.44 (5.00-40.00) mg/dL HDL Cholesterol 68.50 H (40.00-60.00) mg/dL Cholesterol/HDL Ratio 1.72 Ratio TSH 3.070 (0.465-4.680) mIU/L SARS-CoV-2 (PCR) (Not Detectd) Disposition Clinical Impression: Acute psychosis Disposition: ADMITTED IP TO THIS HOSP Condition: Stable
[2023-09-09] MEDS: LORazepam 2 MG/ML INJ IM STA (22:19)
[2023-09-09 22:21] LABS: Basophils # (A) 0.1 k/uL (0-0.2); Basophils % (A) 1 %; Eosinophils # (A) 0.1 k/uL (0-0.7); Eosinophils % (A) 1 %; HCT 28.9 % (34.0-46.0); HGB 8.9 gm/dL (11.4-16.0); Lymphocytes # (A) 1.5 k/uL (1.0-4.8); Lymphocytes % (A) 12 %; MCH 29.3 pg (25.0-35.0); MCHC 30.9 g/dL (31.0-37.0); MCV 94.8 fL (80.0-100.0); Mean Platelet Volume 8.6; Monocytes # (A) 0.8 k/uL (0-1.0); Monocytes % (A) 6 %; Neutrophils % (A) 78 %; Platelet Count 329 k/uL (150-450); RBC 3.05 m/uL (3.80-5.40); RDW 14.4 % (11.5-15.5); WBC 12.8 k/uL (3.8-10.6)
[2023-09-09 22:34] LABS: ALT 25 U/L (4-34); AST 49 U/L (14-36); African American GFR (CKD) 25 (>60 ml/min/1.73 sqM); Albumin 4.2 g/dL (3.5-5.0); Alkaline Phosphatase 103 U/L (38-126); Anion Gap 11 mmol/L; Blood Urea Nitrogen 39 mg/dL (7-17); Calcium 9.4 mg/dL (8.4-10.2); Carbon Dioxide 19 mmol/L (22-30); Chloride 107 mmol/L (98-107); Glucose 74 mg/dL (74-99); Non-African American GFR(CKD) 22 (>60 ml/min/1.73 sqM); Sodium 137 mmol/L (137-145); Total Bilirubin 0.3 mg/dL (0.2-1.3); Total Protein 6.9 g/dL (6.3-8.2)
[2023-09-10] MEDS ORDERED: LORazepam 2 MG/ML INJ IM PRN (15:26)
[2023-09-10] MEDS ORDERED: HALOPERIDOL LACTATE 5 MG/ML 1 ML VIAL IM PRN (15:26)
[2023-09-10] MEDS ORDERED: MAGNESIUM HYDROXIDE 2,400 MG/30 ML CUP PO PRN (15:26)
[2023-09-10] MEDS ORDERED: MAG HYDROX/AL HYDROX/SIMETH 355 ML BOTTLE PO PRN (15:26)
[2023-09-10] MEDS ORDERED: haloperidoL 5 MG TAB PO PRN (15:26)
[2023-09-10] MEDS ORDERED: IBUPROFEN 600 MG TAB PO PRN (15:26)
[2023-09-10] MEDS: ATORVASTATIN 10 MG TAB PO SCH (18:22)
[2023-09-10] MEDS: METOPROLOL TARTRATE 50 MG TAB PO SCH (18:22)
[2023-09-10] MEDS: SACUBITRIL/VALSARTAN 24 MG-26 MG TABLET PO SCH (22:03)
[2023-09-10] MEDS: LORazepam 1 MG TAB PO PRN (22:03)
[2023-09-11] MEDS: amLODIPine 5 MG TAB PO SCH (07:06)
[2023-09-11] MEDS: NICOTINE 14MG/24HR PATCH TRANSDERM SCH (09:56)
[2023-09-11] MEDS: AMMONIUM LACTATE 12% LOTION 225 GM BTL TOPICAL SCH (09:58)
[2023-09-11 10:19] LABS: Chol/HDL Ratio 1.72 Ratio; LDL Cholesterol,Calculated 35.1 mg/dL (0.0-131.0); VLDL Calculation 14.44 mg/dL (5.00-40.00)
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
--- NOTE | 2023-09-11 15:48 | P.CONS ---
History of Present Illness - Reason for Consult Consult date: 09/11/23 Medical management - Chief Complaint Psychiatric issues - History of Present Illness 63-year-old female presents from home with law enforcement. Patient had a pickup order. Patient apparently has been having psychotic behavior for the last 6 to 7 days according to significant other. Apparently 6 weeks ago patient's daughter . Over the last 10 days patient has been having worsening cardiac symptoms. She has been having signs of insomnia, delusions. Patient has history of psychiatric admission in the past. Patient poor historian. reports that he did not notice patient complaining of anything physically. Apparently she has a history of cardiac disease. Listed for medication and fluids Ativan 1 mg twice daily, vitamin D3 1000 units daily, Flexeril 5 mg 3 times daily and zinc sulfate 50 mg daily --Patient reports some hoarseness of voice that has been going on since family Review of Systems REVIEW OF SYSTEMS: CONSTITUTIONAL: No fever, no malaise, no fatigue. HEENT: No recent visual problems or hearing problems. Denied any sore throat. CARDIOVASCULAR: No chest pain, orthopnea, PND, no palpitations, no syncope. PULMONARY: No shortness of breath, no cough, no hemoptysis. GASTROINTESTINAL: No diarrhea, no nausea, no vomiting, no abdominal pain. NEUROLOGICAL: No headaches, no weakness, no numbness. HEMATOLOGICAL: Denies any bleeding or petechiae. GENITOURINARY: Denies any burning micturition, frequency, or urgency. MUSCULOSKELETAL/RHEUMATOLOGICAL: Denies any joint pain, swelling, or any muscle pain. ENDOCRINE: Denies any polyuria or polydipsia. The rest of the 14-point review of systems is negative. Past Medical History Past Medical History: Heart Failure, COPD, Pneumonia Additional Past Medical History / Comment(s): Former Alcohol Dependence. no drinkning last 2 years. History of Any Multi-Drug Resistant Organisms: None Reported Past Surgical History: Section Past Psychological History: No Psychological Hx Reported Smoking Status: Former smoker Past Alcohol Use History: None Reported Past Drug Use History: None Reported - Past Family History Mother Additional Family Medical History / Comment(s): Mother is alive at age 91 with no major medical problems. Father Additional Family Medical History / Comment(s): Father in his 70s from non- A non-B hepatitis Sister(s) Additional Family Medical History / Comment(s): She has one sister with no major medical problems. Patient does not have any brothers. Daughter(s) Additional Family Medical History / Comment(s): Patient has one daughter with no major medical problems. Patient does not have any sons. Medications and Allergies Home Medications Medication Instructions Recorded Confirmed Type ALPRAZolam [Xanax] 1 mg PO BID PRN 09/10/23 09/10/23 History Ammonium Lactate Lotion 1 applic TOPICAL DAILY 09/10/23 09/10/23 History [Lac-Hydrin 12% Lotion] Lovastatin [Mevacor] 20 mg PO W/SUPPER 09/10/23 09/10/23 History Metoprolol Tartrate [Lopressor] 50 mg PO BID-W/MEALS 09/10/23 09/10/23 History Sacubitril/Valsartan [Entresto 24 1 tab PO BID 09/10/23 09/10/23 History mg-26 mg Tablet] amLODIPine [Norvasc] 5 mg PO DAILY 09/10/23 09/10/23 History Allergies Allergy/AdvReac Type Severity Reaction Status Date / Time No Known Allergies Allergy Verified 09/09/23 21:34 Physical Exam Vitals: Vital Signs Temp Pulse Resp BP Pulse Ox 09/11/23 06:25 98.8 F 92 16 172/77 98 09/10/23 20:18 98.4 F 83 18 177/91 Intake and Output 09/10/23 09/11/23 09/11/23 22:59 06:59 14:59 Other: Weight 55.055 kg General: Well-appearing, nontoxic, no acute distress. Head: Normocephalic, atraumatic Eyes: PERRLA, EOMI ENT: Airway patent Chest: Nonlabored breathing Skin: No visual rash, normal skin tone Neuro: Alert and oriented 3 Musculoskeletal: No gross abnormalities Psychiatric: Tangential speech, delusional Results CBC & Chem 7: 09/09/23 22:11 09/09/23 22:11 Labs: Abnormal Lab Results - Last 24 Hours (Table) 09/09/23 Range/Units 22:11 HDL Cholesterol 68.50 H (40.00-60.00) mg/dL Assessment and Plan Assessment: 1. Adjustment disorder with mixed emotional features --Your management 2. Hypertension; amlodipine 5 mg daily; Entresto 24-26 mg 1 twice daily; metoprolol 50 mg twice daily 3. Hyperlipidemia; Lipitor 10 mg daily 4. Depression; Zoloft 50 mg daily DVT prophylaxis; ambulation CODE STATUS; full code
[2023-09-11] MEDS: BENZOCAINE/MENTHOL LOZENG 1 EACH LOZENGE MUCOUS MEM PRN (19:51)
[2023-09-11] MEDS: risperiDONE 0.5 MG TAB PO SCH (21:45)
[2023-09-11] MEDS: guaiFENesin SYRUP 100MG/5ML 200 MG/10 ML CUP PO PRN (21:46)
[2023-09-11] MEDS: hydrOXYzine HCL 25 MG TAB PO PRN (21:47)
[2023-09-12] MEDS: SERTRALINE 50 MG TAB PO SCH (08:25)
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
[2023-09-12] MEDS: ARIPiprazole 5 MG TAB PO SCH (12:36)
[2023-09-12] MEDS: traZODone HCL 50 MG TAB PO SCH (22:22)
--- NOTE | 2023-09-13 09:30 | P.PN ---
Progress Note - Text Progress Note Date: 09/13/23 Interval History: Patient was seen wandering the hallways and was directable and agreeable to sp behzad with parts data writer in the office. patient claims that she is improivng mildly today, denies any racing thoughts. states that her anxiety and mood swings are improving. Patient said she slept too much last night and was requesting the trazodone to be decreased. She claims her appetite is good. Patient thoughts are disorganized, and tangential, improving mildly. At this time patient denies any suicidal or homicidal ideations, intent or plan. Patient denies any auditory, visual hallucinations and denies any paranoia or delusions. Patient denies any side effects from the medications and has been compliant with meds. Mental Status Exam: General Appearance: Patient appears to be older than stated age is alert, directable, and cooperative. Patient is thin, with short hair, and fair hygiene. Behavior: Patient is calmly seated without any agitated behavior. less intrusive. Speech: Patient's speech is fluent and nonpressured. tangential, less Mood/Affect: Mood is ok, affect is congruent and constricted. Suicidality/Homicidality: Patient denies having any suicidal or homicidal ideation intent or plan. Perceptions: Patient denies any visual hallucinations and denies any auditory hallucinations Though content/process: There is no evidence of any delusional thought content and thought process disorganized. more logical today Memory and concentration: AOX3, grossly intact for the purposes of this session flight of ideas. Judgment and insight: poor, improving mildly Assessment: Psychosis unspecified, Rule out bipolar disorder with psychotic features alcohol use disorder Nicotine dependence Plan: -Patient continues to meet criteria for inpatient psychiatric admission for symptom stabilization and safety. Patient has not signed adult voluntary form and has signed medication consent and was placed in patient's chart. -Medications: abilify 5 mg po daily for psychosis, decrease trazodone 25 mg po qhs for sleep -When necessary Ativan and Haldol for agitation/aggression. -NRT - nicotine patch -SW on board for discharge planning. Encouraged the patient to participate in milieu. Currently awaiting deferral with compliance attorney and court date. likely dicharge in 2-3 days back home.
[2023-09-13] MEDS: ACETAMINOPHEN TAB 325 MG TAB PO PRN (10:30)
[2023-09-13 12:06] LABS: Basophils # (A) 0.1 k/uL (0-0.2); Basophils % (A) 1 %; Eosinophils # (A) 0.2 k/uL (0-0.7); Eosinophils % (A) 2 %; HCT 27.5 % (34.0-46.0); HGB 8.4 gm/dL (11.4-16.0); Hypochromasia Slight; Lymphocytes # (A) 1.1 k/uL (1.0-4.8); Lymphocytes % (A) 13 %; MCH 29.5 pg (25.0-35.0); MCHC 30.4 g/dL (31.0-37.0); MCV 97.2 fL (80.0-100.0); Mean Platelet Volume 8.2; Monocytes # (A) 0.6 k/uL (0-1.0); Monocytes % (A) 8 %; Neutrophils # (A) 6.2 k/uL (1.3-7.7); Neutrophils % (A) 74 %; Platelet Count 333 k/uL (150-450); RBC 2.83 m/uL (3.80-5.40); WBC 8.3 k/uL (3.8-10.6)
[2023-09-13 12:07] LABS: African American GFR (CKD) 54 (>60 ml/min/1.73 sqM); Anion Gap 5 mmol/L; Blood Urea Nitrogen 25 mg/dL (7-17); Carbon Dioxide 22 mmol/L (22-30); Chloride 109 mmol/L (98-107); Glucose 105 mg/dL (74-99); Non-African American GFR(CKD) 47 (>60 ml/min/1.73 sqM); Sodium 136 mmol/L (137-145)
[2023-09-13 12:10] LABS: Potassium 5.2 mmol/L (3.5-5.1)
[2023-09-13 13:17] VITALS: BMI 18.4
[2023-09-13] MEDS: traZODone HCL 50 MG TAB PO SCH (20:31)
[2023-09-14 07:18] VITALS: RESP 16
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
[2023-09-14] MEDS: MULTIVITAMINS, THERA 1 EACH TAB PO SCH (12:11)
[2023-09-14] MEDS: ARIPiprazole 5 MG TAB PO ONE (12:11)
[2023-09-15 07:50] VITALS: TEMP 98.4
[2023-09-15] MEDS: ARIPiprazole 5 MG TAB PO SCH (08:56)
[2023-09-15 09:24] VITALS: BP 161/66; PULSE 97
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
[2023-09-15] MEDS: amLODIPine 5 MG TAB PO STA (10:09)
[2023-09-16] MEDS ORDERED: amLODIPine 10 MG TAB PO SCH (09:00)
== END 2023-09-15 13:11 | disposition home or self-care (01) | DRG 885 ==
LOC: EC 18:59 → 3MHU 09-10 15:20
PROVIDERS: ADMIT Psychiatry & Neurology Psychiatry; ATTEND Psychiatry & Neurology Psychiatry
DX: F31.89 Other bipolar disorder (principal); T76.11XA Adult physical abuse, suspected, initial encounter; F43.23 Adjustment disorder with mixed anxiety and depressed mood; Z63.4 Disappearance and death of family member; Z63.0 Problems in relationship with spouse or partner; R45.1 Restlessness and agitation; F10.21 Alcohol dependence, in remission; Z71.6 Tobacco abuse counseling; F17.200 Nicotine dependence, unspecified, uncomplicated; E78.5 Hyperlipidemia, unspecified; I50.9 Heart failure, unspecified; I11.0 Hypertensive heart disease with heart failure; G47.00 Insomnia, unspecified; J44.9 Chronic obstructive pulmonary disease, unspecified; Z87.01 Personal history of pneumonia (recurrent); Z71.51 Drug abuse counseling and surveillance of drug abuser; Z87.898 Personal history of other specified conditions; Z79.899 Other long term (current) drug therapy; Z28.21 Immunization not carried out because of patient refusal; Z11.52 Encounter for screening for COVID-19
CPT/HCPCS: 36415; 80048; 80053; 80061; 82075; 83036; 84443; 85025; 87635; 96372; 99285

== ENCOUNTER 2024-05-07 15:24 | Observation (INO) | payer MEDICARE ==
[2024-05-07] MEDS ORDERED: LORazepam 2 MG/ML INJ IV PRN ×2 (15:45)
--- NOTE | 2024-05-07 15:52 | ED ---
Psych HPI - General Chief Complaint: Psychiatric Symptoms Stated Complaint: Mental Health-Detox Time Seen by Provider: 05/07/24 15:49 Source: patient, family (), EMS, RN notes reviewed Mode of arrival: EMS Limitations: no limitations - History of Present Illness Initial Comments: Patient is a 64-year-old female with a past medical history significant of heart failure, COPD and alcohol dependence with withdrawal seizures presented to ER for evaluation of EtOH and mental health evaluation. Patient is court ordered. Patient reports 10 months ago she lost her daughter to a drug overdose. She states since then she has been doing well with her drinking until the past 6 weeks when she had a relapse. She states prior to relapsing she was completely sober. She does report drinking 5 of alcohol daily 20 years ago. She states within the past 6 weeks she drinks approximately half 1/5 of vodka daily. Last drink was 8am today. She admits to a history of withdrawal grand mal seizures. Patient denies any drug or alcohol use. Denies any suicidal or homicidal ideations. Patient denies any significant past medical history. Patient denies any current complaints. Upon discussion with patient's he reports she has been making suicidal statements stating she wants to " in her bed" recently. He states he has tried to help her with the relapse but has been unsuccessful. He states she is in poor physical and mental health at this time. Patient is court ordered as she has been missing therapy sessions recently. - Related Data Home Medications Medication Instructions Recorded Confirmed Cyanocobalamin (Vitamin B-12) 1,000 mcg PO DAILY 05/07/24 05/07/24 [Vitamin B-12] Metoprolol Tartrate [Lopressor] 50 mg PO BID 05/07/24 05/07/24 Multivitamins, Thera [Multivitamin 1 tab PO DAILY 05/07/24 05/07/24 (formulary)] amLODIPine [Norvasc] 5 mg PO AC-SUPPER 05/07/24 05/07/24 traZODone HCL [Desyrel] 25 mg PO HS PRN 05/07/24 05/07/24 Previous Rx's Medication Instructions Recorded Sacubitril/Valsartan [Entresto 24 1 tab PO BID 30 Days #30 tab 09/15/23 mg-26 mg Tablet] Allergies Allergy/AdvReac Type Severity Reaction Status Date / Time No Known Allergies Allergy Verified 05/07/24 17:22 Review of Systems ROS Statement: Those systems with pertinent positive or pertinent negative responses have been documented in the HPI. ROS Other: All systems not noted in ROS Statement are negative. Past Medical History Past Medical History: Heart Failure, COPD, Pneumonia Additional Past Medical History / Comment(s): Alcohol Dependence, ETOH withdrawal seizures History of Any Multi-Drug Resistant Organisms: None Reported Past Surgical History: Section Past Psychological History: No Psychological Hx Reported Smoking Status: Current every day smoker Past Alcohol Use History: Abuse, Daily Past Drug Use History: None Reported - Past Family History Mother Additional Family Medical History / Comment(s): Mother is alive at age 91 with no major medical problems. Father Additional Family Medical History / Comment(s): Father in his 70s from non- A non-B hepatitis Sister(s) Additional Family Medical History / Comment(s): She has one sister with no major medical problems. Patient does not have any brothers. Daughter(s) Additional Family Medical History / Comment(s): Patient has one daughter with no major medical problems. Patient does not have any sons. General Exam Limitations: no limitations General appearance: alert, in no apparent distress, other (Intoxicated) Respiratory exam: Present: normal lung sounds bilaterally. Absent: respiratory distress, wheezes, rales, rhonchi, stridor Cardiovascular Exam: Present: regular rate, normal rhythm, normal heart sounds. Absent: systolic murmur, diastolic murmur, rubs, gallop, clicks GI/Abdominal exam: Present: soft, normal bowel sounds. Absent: distended, tenderness, guarding, rebound, rigid Extremities exam: Present: normal inspection, full ROM, normal capillary refill. Absent: tenderness, pedal edema, joint swelling, calf tenderness Neurological exam: Present: alert, oriented X3, CN II-XII intact Skin exam: Present: warm, dry, intact, normal color. Absent: rash Course Vital Signs 05/07/24 05/07/24 15:27 16:20 Temperature 98.0 F 97.9 F Pulse Rate 88 88 Respiratory 16 16 Rate Blood Pressure 134/64 165/79 O2 Sat by Pulse 94 L 96 Oximetry - Reevaluation(s) Reevaluation #1: 05/07/24 17:20 [facility]. Medical Decision Making - Medical Decision Making Was pt. sent in by a medical professional or institution (, MISHA, PATTERN WORKER, urgent care, hospital, or intermediate...) When possible be specific @ -No Did you speak to anyone other than the patient for history (EMS, parent, family, police, friend...)? What history was obtained from this source @ -, at bedside, aiding in HPI past medical history. Did you review nursing and triage notes (agree or disagree)? Why? @ -I reviewed and agree with nursing and triage notes Were old charts reviewed (outside hosp., previous admission, EMS record, old EKG, old radiological studies, urgent care reports/EKG's, intermediate records)? Report findings @ -No old charts were reviewed Differential Diagnosis (chest pain, altered mental status, abdominal pain women, abdominal pain men, vaginal bleeding, weakness, fever, dyspnea, syncope, headache, dizziness, GI bleed, back pain, seizure, CVA, palpatations, mental health, musculoskeletal)? @ -Differential Mental Health: Depression, anxiety, bipolar, psychosis, schizophrenia, borderline personality, situational depression, adjustment disorder, behavioral disorder, brain tumor, malingering, substance abuse, encephalopathy, medication reaction, dementia, hypothyroidism, degenerative neurologic disorder, lupus.... This is not meant to be all-inclusive list EKG interpreted by me (3pts min.). @ -As above X-rays interpreted by me (1pt min.). @ -None done CT interpreted by me (1pt min.). @ -None done U/S interpreted by me (1pt. min.). @ -None done What testing was considered but not performed or refused? (CT, X-rays, U/S, labs)? Why? @ -None What meds were considered but not given or refused? Why? @ -None Did you discuss the management of the patient with other professionals (professionals i.e. MISHA Waller, PATTERN WORKER, lab, RT, psych nurse, social sciences department chair, matting press tender, teacher, public health service officer, casework manager)? Give summary @ -Yes, [facility]. Was smoking cessation discussed for >3mins.? @ -No Was critical care preformed (if so, how long)? @ -No Were there social determinants of health that impacted care today? How? (Homelessness, low income, unemployed, alcoholism, drug addiction, transportation, low edu. Level, literacy, decrease access to med. care, penitentiary, rehab)? @ -Alcoholism Was there de-escalation of care discussed even if they declined (Discuss DNR or withdrawal of care, Hospice)? DNR status @ -No What co-morbidities impacted this encounter? (DM, HTN, Smoking, COPD, CAD, Cancer, CVA, ARF, Chemo, Hep., AIDS, mental health diagnosis, sleep apnea, morbid obesity)? @ -Alcoholism, mental health Was patient admitted / discharged? Hospital course, mention meds given and route, prescriptions, significant lab abnormalities, going to OR and other pertinent info. @ -Admitted. 64-year-old female presented to the ER via EMS for evaluation EtOH and mental health evaluation. Patient is court ordered. Upon examination, vitals within normal limits. Patient is in no signs of acute distress. Patient does appear anxious and intoxicated. Exam benign. Laboratory studies showing an anemia of 10.7 which appears to be chronic in nature. ESPERANZA with a BUN of 33, creatinine 1.97 with a GFR 26. Serum alcohol 236 with associated transaminitis (AST 125, ALT 46, alk phos 128). CIWA 8. Patient started on Ativan protocol. Seizure precautions in place. Given patient's history of withdrawal seizures admission was considered and discussed with [facility], Dr. Bhandari. Psych on consult. Patient and agreeable for admission. Case discussed with ED attending, Dr. Medley. Undiagnosed new problem with uncertain prognosis? @ -No Drug Therapy requiring intensive monitoring for toxicity (Heparin, Nitro, Insulin, Cardizem)? @ -No Were any procedures done? @ -No Diagnosis/symptom? @ -Alcohol intoxication impending withdrawals/ history of withdrawal seizures/ESPERANZA/mental health evaluation Acute, or Chronic, or Acute on Chronic? @ -Acute Uncomplicated (without systemic symptoms) or Complicated (systemic symptoms)? @ -Complicated Side effects of treatment? @ -No Exacerbation, Progression, or Severe Exacerbation? @ -No Poses a threat to life or bodily function? How? (Chest pain, USA, SD, pneumonia, PE, COPD, DKA, ARF, appy, cholecystitis, CVA, Diverticulitis, Homicidal, Suicidal, threat to staff... and all critical care pts) @ -Yes, alcohol withdrawals can lead to seizures. Patient is also suicidal, per . - Lab Data Result diagrams: 05/07/24 16:03 05/07/24 16:03 Lab Results 05/07/24 05/07/24 Range/Units 16:03 16:03 WBC 7.7 (3.8-10.6) k/uL RBC 3.61 L (3.80-5.40) m/uL Hgb 10.7 L (11.4-16.0) gm/dL Hct 34.3 (34.0-46.0) % MCV 95.1 (80.0-100.0) fL MCH 29.7 (25.0-35.0) pg MCHC 31.2 (31.0-37.0) g/dL RDW 16.9 H (11.5-15.5) % Plt Count 414 (150-450) k/uL MPV 7.0 Neutrophils % 75 % Lymphocytes % 15 % Monocytes % 5 % Eosinophils % 1 % Basophils % 1 % Neutrophils # 5.8 (1.3-7.7) k/uL Lymphocytes # 1.2 (1.0-4.8) k/uL Monocytes # 0.4 (0-1.0) k/uL Eosinophils # 0.1 (0-0.7) k/uL Basophils # 0.1 (0-0.2) k/uL Hypochromasia Slight Anisocytosis Slight Sodium 139 (137-145) mmol/L Potassium 4.1 (3.5-5.1) mmol/L Chloride 105 (98-107) mmol/L Carbon Dioxide 22 (22-30) mmol/L Anion Gap 12 mmol/L BUN 33 H (7-17) mg/dL Creatinine 1.97 H (0.52-1.04) mg/dL Est GFR (CKD-EPI)AfAm 30 (>60 ml/min/1.73 sqM) Est GFR (CKD-EPI)NonAf 26 (>60 ml/min/1.73 sqM) Glucose 114 H (74-99) mg/dL Calcium 9.6 (8.4-10.2) mg/dL Phosphorus 4.0 (2.5-4.5) mg/dL Magnesium 2.2 (1.6-2.3) mg/dL Total Bilirubin 0.3 (0.2-1.3) mg/dL AST 125 H (14-36) U/L ALT 46 H (4-34) U/L Alkaline Phosphatase 128 H (38-126) U/L Total Protein 7.2 (6.3-8.2) g/dL Albumin 4.2 (3.5-5.0) g/dL Serum Alcohol 236 H* mg/dL - EKG Data -: EKG Interpreted by Me EKG Comments: EKG taken at 16: 13 showing sinus rhythm. No acute ST segment or T wave abnormalities. Normal axis. Ventricular rate 91, CO interval 167, QRS duration 96, QT/QTc 366/415. Disposition Clinical Impression: Alcohol intoxication, Alcohol withdrawal, ESPERANZA (acute kidney injury) Disposition: ADMITTED IP TO THIS HOSP Condition: Stable Referrals: Carlos Eduardo Ellis MD [Primary Care Provider] - 1-2 days Time of Disposition: 16:44
[2024-05-07 16:09] LABS: Anisocytosis Slight; Basophils # (A) 0.1 k/uL (0-0.2); Basophils % (A) 1 %; Eosinophils # (A) 0.1 k/uL (0-0.7); Eosinophils % (A) 1 %; HCT 34.3 % (34.0-46.0); HGB 10.7 gm/dL (11.4-16.0); Hypochromasia Slight; Lymphocytes # (A) 1.2 k/uL (1.0-4.8); Lymphocytes % (A) 15 %; MCH 29.7 pg (25.0-35.0); MCHC 31.2 g/dL (31.0-37.0); MCV 95.1 fL (80.0-100.0); Monocytes # (A) 0.4 k/uL (0-1.0); Monocytes % (A) 5 %; Neutrophils # (A) 5.8 k/uL (1.3-7.7); Neutrophils % (A) 75 %; Platelet Count 414 k/uL (150-450); RBC 3.61 m/uL (3.80-5.40); RDW 16.9 % (11.5-15.5); WBC 7.7 k/uL (3.8-10.6)
[2024-05-07] MEDS: SODIUM CHLORIDE 0.9% 1,000 ML IV STA ×2 (16:23→17:58)
[2024-05-07] MEDS: THIAMINE 100 MG/ML 2 ML VIAL IM STA (16:23)
[2024-05-07 16:32] LABS: ALT 46 U/L (4-34); AST 125 U/L (14-36); African American GFR (CKD) 30 (>60 ml/min/1.73 sqM); Albumin 4.2 g/dL (3.5-5.0); Alkaline Phosphatase 128 U/L (38-126); Anion Gap 12 mmol/L; Blood Urea Nitrogen 33 mg/dL (7-17); Calcium 9.6 mg/dL (8.4-10.2); Carbon Dioxide 22 mmol/L (22-30); Chloride 105 mmol/L (98-107); Glucose 114 mg/dL (74-99); Magnesium 2.2 mg/dL (1.6-2.3); Non-African American GFR(CKD) 26 (>60 ml/min/1.73 sqM); Potassium 4.1 mmol/L (3.5-5.1); Sodium 139 mmol/L (137-145); Total Bilirubin 0.3 mg/dL (0.2-1.3); Total Protein 7.2 g/dL (6.3-8.2)
[2024-05-07 16:34] LABS: Alcohol 236 mg/dL
[2024-05-07] MEDS: LORazepam 2 MG/ML INJ IV PRN (16:49)
[2024-05-07] MEDS ORDERED: NALOXONE 0.4 MG/ML 1 ML VIAL IV PRN (17:41)
[2024-05-07] MEDS: NICOTINE 7MG/24HR PATCH TRANSDERM STA (19:06)
[2024-05-07 21:51] LABS: Amphetamine Screen,Urine Detected (NotDetected); Barbiturate Screen,Urine Not Detected (NotDetected); Benzodiazepines Screen,Urine Not Detected (NotDetected); Cocaine Screen,Urine Not Detected (NotDetected); Methadone Screen, Urine Not Detected (NotDetected); Opiate Screen,Urine Not Detected (NotDetected); Oxycodone Screen, Urine Not Detected (NotDetected); Phencyclidine Screen,Urine Not Detected (NotDetected); Tricyclic Antidepressant,Urine Not Detected (NotDetected); Urn Cannabinoid Scrn Not Detected (NotDetected)
[2024-05-08] MEDS: LABETALOL 200 MG TAB PO STA (02:00)
[2024-05-08] MEDS: amLODIPine 5 MG TAB PO SCH (12:34)
[2024-05-08] MEDS: METOPROLOL TARTRATE 50 MG TAB PO SCH (12:34)
[2024-05-08] MEDS: SACUBITRIL/VALSARTAN 24 MG-26 MG TABLET PO SCH (12:34)
--- NOTE | 2024-05-08 12:36 | P.CN ---
Psychiatric Consult - . Consult date: 05/08/24 Consult:: 05/08/24 12:29 IDENTIFYING DATA: This patient is a 64-year-old female, retired and living at home with REASON FOR REFERRAL: Psychiatry was consulted for SI HISTORY OF PRESENT ILLNESS: The patient presented to the hospital for evaluation of alcohol and mental health evaluation. Per chart review, patient recently relapsed and has been drinking alcohol daily. Patient's states that patient has made suicidal comments about "wanting to in her bed" recently. Patient is seen and evaluated at bedside. She states wanting to come to the ED primarily to stop her alcohol use. She reports a 14-year history of sobriety however recently relapsed early March after getting a tooth pulled with severe pain afterwards. She states previously being on Antabuse which helped with her sobriety however she stopped this during that time has been drinking roughly a pint of alcohol daily since March. She states previously going to rehab however is not interested at this time. She states recently losing her d aughter to an overdose earlier this year however she is in therapy weekly and goes to [facility] outpatient for medication management. She states she has been adherent with her psychotropic medications and denies any depressive symptoms. At this time patient denies any suicidal or homical ideations, intent or plan. She was able to name several reasons to live including herself, her ghislaine in God and her dogs. Patient denies any auditory, visual hallucinations and denies any paranoia or delusions. Patients admits to using alcohol and nicotine. PAST PSYCHIATRIC HISTORY: Patient has a a history of bipolar disorder with psychotic features, alcohol use disorder. Patient is currently prescribed Abilify 10 mg daily and Antabuse however has been nonadherent with the latter medication. She was recently hospitalized August 2023 at this facility. Patient follows with [facility] counseling for both medications and therapy, she states having an upcoming appointment in 2 weeks. Patient denies any history of suicide attempts in the past. PAST MEDICAL HISTORY: Heart failure, COPD. ALLERGIES: as per EMR. CHEMICAL DEPENDENCY HISTORY: as per HPI. FAMILY PSYCHIATRIC/SUBSTANCE USE HISTORY: Denies SOCIAL HISTORY: Patient is and has 1 child who recently due to overdose. She is retired. MENTAL STATUS EXAM: General Appearance: Patient appears to be stated age is alert, pleasant, and cooperative. Patient appears to have fair hygiene and grooming wearing hospital gown with fair eye contact. Behavior: Patient is calmly lying in bed without any agitated behavior. Speech: Patient's speech is fluent and nonpressured. Mood/Affect: Patient reports their mood is "better", affect is congruent Suicidality/Homicidality: Patient denies having any suicidal or homicidal ideation intent or plan. Perceptions: Patient denies any visual hallucinations and denies any auditory hallucinations Though content/process: There is no evidence of any delusional thought content and thought process is linear and goal-directed. Memory and concentration: AOX3, grossly intact for the purposes of this session. Can spell "WORLD" backwards Judgment and insight: Poor IMPRESSIONS: Alcohol use disorder, severe in withdrawal History of bipolar disorder with psychotic features PLAN: -At this time patient DOES NOT meet criteria for inpatient psychiatric admission. -Would recommend the following medication changes/additions: Start naltrexone 50 mg daily for alcohol cravings and resume Abilify 10 mg daily for bipolar disorder -CIWA protocol with PRN Ativan for alcohol withdrawal. Continue to monitor vital signs. -Can discontinue 1:1 sitter at this time as patient is not currently an imminent threat to themselves -Breaking Machine Operator spoke with patient about substance abuse and the harmful effects on medical and mental health, patient verbally understood and agreed. -Patient states having an upcoming appointment with [facility] counseling and was encouraged to attend for further medication management -Psychiatry will sign off at this time -Please contact with any questions.
--- NOTE | 2024-05-08 14:10 | XR ---
EXAMINATION TYPE: XR chest 1V portable DATE OF EXAM: 05/08/2024 2:04 PM COMPARISON: Chest radiograph 12/18/2022 CLINICAL INDICATION: Female, 64 years old with history of chf; TECHNIQUE: XR chest 1V portable Frontal view of the chest. FINDINGS: Lungs/Pleura: Prominent interstitial lung markings are seen scattered throughout the lungs. No eviden ce of focal consolidation, pneumothorax or pleural effusion. Pulmonary vascularity: Unremarkable. Heart/mediastinum: Cardiomediastinal silhouette is enlarged. Musculoskeletal: No acute osseous pathology. IMPRESSION: Cardiomegaly and mild pulmonary vascular congestion. Correlate with BNP for congestive heart failure. [facility], , 05/08/2024 2:08 PM
[2024-05-08 15:42] VITALS: RESP 16
[2024-05-08] MEDS: NALTREXONE HCL 50 MG TAB PO SCH (17:57)
[2024-05-08] MEDS: ARIPiprazole 10 MG TAB PO SCH (17:57)
[2024-05-08] MEDS: PANTOPRAZOLE 40 MG TABLET PO SCH (17:57)
[2024-05-08] MEDS: cloNIDine HCL 0.1 MG TAB PO PRN (20:08)
[2024-05-08] MEDS: traZODone HCL 50 MG TAB PO PRN (20:11)
[2024-05-08] MEDS: ACETAMINOPHEN TAB 325 MG TAB PO PRN (22:34)
--- NOTE | 2024-05-08 23:40 | HP ---
HISTORY AND PHYSICAL CHIEF COMPLAINT: Alcohol withdrawal. HISTORY OF PRESENT ILLNESS: This is a 64-year-old woman with a past medical history of multiple medical problems including alcohol heavily. The patient apparently had evidence of chronic liver disease also. The patient had history of bipolar with psychotic features. No chest pain. No palpitations. PAST MEDICAL HISTORY: Reviewed include CHF, COPD, pneumonia, alcohol dependence, ETOH. Multiple complex medical issues reviewed. The rest of the history and chart is also reviewed. HOME MEDICATIONS: Reviewed include vitamin B12. Rest of medications reviewed. ALLERGIES: None. FAMILY HISTORY: No history of heart disease or strokes in the family. SOCIAL HISTORY: Alcohol, smoking. REVIEW OF SYSTEMS: A 14-point review of systems is negative except as mentioned earlier. PHYSICAL EXAMINATION: VITAL SIGNS: Pulse is 91, blood pressure 183/57, respirations 15. HEENT: Conjunctivae normal. NECK: No JVD. CARDIOVASCULAR: S1, S2. RESPIRATIONS: Breath sounds diminished at the bases. A few scattered rhonchi. ABDOMEN: Soft. NERVOUS SYSTEM: Diffuse tremors. LABORATORY DATA: Alcohol 236. Rest of the labs are noted. ASSESSMENT: 1. Acute alcohol intoxication and withdrawal. 2. Early delirium tremens. 3. Chronic kidney disease, stage 3. 4. History of congestive heart failure. 5. History of chronic obstructive pulmonary disease. 6. History of alcohol withdrawal seizures. 7. History of continued ongoing nicotine dependence. 8. Possible chronic liver disease. RECOMMENDATIONS AND DISCUSSION: Recommend to continue current medications and continue symptomatic treatment. Otherwise, at this time, I would recommend CIWA protocol. Closely monitor. I would also recommend chest x-ray to rule out the possibility of CHF. Otherwise, prognosis is guarded. Resume the home medications once they are confirmed. Further recommendations to follow. Psychiatric input appreciated. Recommend full admit to control the acute DTs lasting for more than 2 midnights. MMODL / IJN: [id number] /
[2024-05-09 07:56] VITALS: BP 169/84; PULSE 80; TEMP 97.7
[2024-05-09] MEDS: MULTIVITAMINS, THERA 1 EACH TAB PO SCH (09:06)
[2024-05-09] MEDS: CYANOCOBALAMIN 500 MCG TAB PO SCH (09:06)
[2024-05-09 09:28] LABS: BUN/Creat Ratio 17.22 Ratio (12.00-20.00); Calcium 9.2 mg/dL (8.7-10.3); Carbon Dioxide 20.9 mmol/L (21.6-31.8); Chloride 104 mmol/L (96-109); Glucose 93 mg/dL (70-110); Sodium 136 mmol/L (135-145)
[2024-05-09 09:29] LABS: Basophils # (A) 0.08 X 10*3/uL (0.00-0.10); Basophils % (A) 1.2 %; Eosinophils # (A) 0.26 X 10*3/uL (0.04-0.35); HCT 28.9 % (37.2-46.3); HGB 8.9 g/dL (12.0-15.0); Lymphocytes # (A) 0.89 X 10*3/uL (0.90-5.00); Lymphocytes % (A) 13.9 %; MCH 29.8 pg (27.0-32.0); MCHC 30.8 g/dL (32.0-37.0); MCV 96.7 FL (80.0-97.0); Mean Platelet Volume 9.8 FL (9.5-12.2); Monocytes # (A) 0.66 X 10*3/uL (0.20-1.00); Monocytes % (A) 10.3 %; NRBC Per 100 WBC 0 X 10*3/uL (0.00-0.01); Neutrophils # (A) 4.51 X 10*3/uL (1.80-7.70); Neutrophils % (A) 70.3 %; Platelet Count 239 X 10*3/uL (140-440); RBC 2.99 X 10*6/uL (4.10-5.20); RDW 17.3 % (11.5-14.5); WBC 6.42 X 10*3/uL (4.50-10.00)
[2024-05-09] MEDS: ALPRAZolam 1 MG TAB PO STA (10:32)
[2024-05-09] MEDS: NICOTINE 21MG/24HR PATCH TRANSDERM SCH (11:57)
--- NOTE | 2024-05-09 13:43 | DS ---
DISCHARGE SUMMARY FINAL DIAGNOSES: 1. Acute alcohol intoxication and withdrawal. 2. Early delirium tremens. 3. Chronic kidney disease. 4. Multiple medical problems. DISCHARGE DISPOSITION: The patient will be discharged in stable condition and guarded prognosis. HISTORY OF PRESENT ILLNESS: This is a 64-year-old woman with a past medical history of multiple medical problems, who was admitted with delirium tremens and alcohol withdrawal, treated symptomatically, improved significantly. PHYSICAL EXAMINATION: VITAL SIGNS: Stable. CARDIOVASCULAR: S1, S2. ABDOMEN: Soft. NERVOUS SYSTEM: No focal deficits. The patient will be discharged home with the following discharge medications. RECOMMENDATIONS: To attend alcohol rehab. Recommend Librium 25 mg p.o. b.i.d. for 3 days, 50 mg p.o. daily for 3 days, Abilify 10 mg daily, and clonidine 0.1 mg daily. Follow up with primary physician. Once again, the patient will be discharged in a stable condition with guarded prognosis. MMENDY / IJN: [id number] / MTDD
--- NOTE | 2024-05-15 12:27 | CDI ---
Documentation Clarification Form Date: 05/15/2024 12:16:24 PM From: Jacquie Gutiérrez Phone: Admit Date: 05/08/2024 01:47:00 PM Patient Name: Noemi Kiran Visit Number: [id number] Discharge Date: 05/09/2024 01:24:00 PM ATTENTION: The Clinical Documentation Specialists (CDI) and [facility] Coding Staff appreciate your assistance in clarifying documentation. Please respond to the clarification below the line at the bottom and electronically sign. The CDI & [facility] Coding staff will review the response and follow-up if needed. Please note: Queries are made part of the Legal Health Record. If you have any questions, please contact the author of this message via ITS. Doctor/Provider: Lola De Jesus Chronic liver disease is documented per H&P and Notes and patient is noted to have chronic liver disease. Please clarify if there is a relationship between the diagnoses. History/Risk Factors: 64yo F, Acute alcohol intoxicationandwithdrawal w earlydelirium tremens, BPD w psychoticfeatures CKD3, CHF, COPD, Hx ETOH withdrawalseizures, smoker,chronicliver disease Clinical Indicators: Serum alcohol 236with associated transaminitis (AST 125, ALT 46, alk phos 128). CIWA 8. Treatment: Patient started on Ativan protocol. Please clarify the relationship, if any, which is clinically appropriate for this patient: [ x] Chronic liver disease is due to alcohol dependence [ ] Chronic liver disease is not due to alcohol dependence [ ] Other explanation of clinical findings (please specify) [ ] Unable to determine (no explanation for clinical findings) (Template Last Revised: July 2020) MTDD
== END 2024-05-09 13:24 | disposition home or self-care (01) ==
LOC: EC 15:24 → 5NMEDONC 16:40 → UNDOADMOB 16:40 → INTOOBSV 05-08 13:47 → OBSVTOIN 05-08 13:47 → 5NMEDONC 05-08 14:14 → UNDODISOB 05-09 13:24
PROVIDERS: ADMIT Internal Medicine; ATTEND Internal Medicine
DX: F10.231 Alcohol dependence with withdrawal delirium (principal); F10.220 Alcohol dependence with intoxication, uncomplicated; N17.9 Acute kidney failure, unspecified; I50.9 Heart failure, unspecified; N18.30 Chronic kidney disease, stage 3 unspecified; J44.9 Chronic obstructive pulmonary disease, unspecified; F31.9 Bipolar disorder, unspecified; F17.200 Nicotine dependence, unspecified, uncomplicated; Y90.7 Blood alcohol level of 200-239 mg/100 ml; Z79.899 Other long term (current) drug therapy
CPT/HCPCS: 96376; 82075; 96361; 96372; 96374; 99285; 36415; 93005; 80053; 80048; 83735; 84100; 85025 ×2; 80306; 71045; G0378 ×3; G0480; S4990; J2060 ×2; J3411; 80320

== ENCOUNTER 2024-06-11 15:05 | Inpatient (IN) | payer MEDICARE ==
[2024-06-11] MEDS: KETOROLAC 15 MG/ML 1 ML VIAL IVP STA (15:56)
[2024-06-11 16:11] LABS: ALT 152 U/L (4-34); AST 227 U/L (14-36); African American GFR (CKD) 17 (>60 ml/min/1.73 sqM); Albumin 4.5 g/dL (3.5-5.0); Alkaline Phosphatase 159 U/L (38-126); Anion Gap 19 mmol/L; Blood Urea Nitrogen 60 mg/dL (7-17); Calcium 9.9 mg/dL (8.4-10.2); Carbon Dioxide 14 mmol/L (22-30); Chloride 106 mmol/L (98-107); Glucose 90 mg/dL (74-99); Magnesium 2.9 mg/dL (1.6-2.3); Non-African American GFR(CKD) 15 (>60 ml/min/1.73 sqM); Potassium 5.6 mmol/L (3.5-5.1); Sodium 139 mmol/L (137-145); Total Bilirubin 0.8 mg/dL (0.2-1.3); Total Protein 7.9 g/dL (6.3-8.2)
[2024-06-11 16:36] LABS: NT-Pro-B-Type Natriuretic Pept 174000 pg/mL
[2024-06-11 16:37] LABS: Influenza A Not Detected (Not Detectd); Influenza B Not Detected (Not Detectd); RSV Not Detected (Not Detectd)
[2024-06-11 16:45] LABS: Alcohol <10 mg/dL; Creatine Kinase 142 U/L (30-135)
--- NOTE | 2024-06-11 16:48 | ED ---
Weakness HPI - General Chief complaint: Shortness of Breath Stated complaint: Weakness Time Seen by Provider: 06/11/24 15:12 Source: patient, EMS, RN notes reviewed Mode of arrival: EMS Limitations: no limitations - History of Present Illness Initial comments: This is a 64-year-old female who presents to the emergency department for generalized weakness. Patient states that for the last couple of weeks she has been increasingly weak. She has no energy, is sleeping most of the day, and barely getting out of bed. Today, states that she started to feel very short of breath and in general started feeling much worse. Her family became concerned and called EMS. She currently denies any chest pain. Patient's blood pressure significantly elevated on arrival. Denies any missed doses of her medication. Denies any headaches or visual changes. MD Complaint: generalized weakness - Related Data Home Medications Medication Instructions Recorded Confirmed Metoprolol Tartrate [Lopressor] 50 mg PO BID 05/07/24 06/11/24 amLODIPine [Norvasc] 5 mg PO AC-SUPPER 05/07/24 06/11/24 traZODone HCL [Desyrel] 50 mg PO HS PRN 05/07/24 06/11/24 Previous Rx's Medication Instructions Recorded Sacubitril/Valsartan [Entresto 24 1 tab PO BID 30 Days #30 tab 09/15/23 mg-26 mg Tablet] Allergies Allergy/AdvReac Type Severity Reaction Status Date / Time No Known Allergies Allergy Verified 06/11/24 16:52 Review of Systems ROS Statement: Those systems with pertinent positive or pertinent negative responses have been documented in the HPI. ROS Other: All systems not noted in ROS Statement are negative. Past Medical History Past Medical History: Heart Failure, COPD, Pneumonia Additional Past Medical History / Comment(s): Alcohol Dependence, ETOH withdrawal seizures History of Any Multi-Drug Resistant Organisms: None Reported Past Surgical History: Section Past Psychological History: No Psychological Hx Reported Smoking Status: Current every day smoker Past Alcohol Use History: Occasional - Past Family History Mother Additional Family Medical History / Comment(s): Mother is alive at age 91 with no major medical problems. Father Additional Family Medical History / Comment(s): Father in his 70s from non- A non-B hepatitis Sister(s) Additional Family Medical History / Comment(s): She has one sister with no major medical problems. Patient does not have any brothers. Daughter(s) Additional Family Medical History / Comment(s): Ptients daughter overdosed and in July 2023. Patient does not have any sons. General Exam Limitations: no limitations General appearance: alert, in no apparent distress Head exam: Present: atraumatic, normocephalic, normal inspection Respiratory exam: Present: rhonchi, decreased breath sounds, prolonged expiratory Cardiovascular Exam: Present: normal rhythm, tachycardia GI/Abdominal exam: Present: soft, normal bowel sounds. Absent: distended, tenderness, guarding, rebound, rigid Neurological exam: Present: alert, oriented X3, CN II-XII intact Psychiatric exam: Present: normal affect, normal mood Skin exam: Present: warm, dry, intact, normal color. Absent: rash Course Vital Signs 06/11/24 06/11/24 06/11/24 15:08 15:43 17:13 Temperature 97.9 F Pulse Rate 102 H 93 101 H Respiratory 20 20 20 Rate Blood Pressure 220/150 201/132 220/137 O2 Sat by Pulse 98 94 L Oximetry 06/11/24 06/11/24 06/11/24 17:15 17:33 17:49 Temperature Pulse Rate 66 68 71 Respiratory 20 20 16 Rate Blood Pressure 148/120 162/103 153/97 O2 Sat by Pulse 91 L 93 L Oximetry 06/11/24 06/11/24 06/11/24 18:09 18:21 18:43 Temperature Pulse Rate 79 70 72 Respiratory 18 18 18 Rate Blood Pressure 136/83 147/96 168/112 O2 Sat by Pulse 91 L 91 L 91 L Oximetry Medical Decision Making - Medical Decision Making This is a 64-year-old female who presents emergency department for weakness and shortness of breath. Was pt. sent in by a medical professional or institution? @ -No Did you speak to anyone other than the patient for history? @ -No Did you review nursing and triage notes? @ -Yes, and I agree, it is accurate with regards to the patient's symptoms. Were old charts reviewed? @ -No Differential Diagnosis? @ -Differential Weakness: Hypoglycemia, shock, sepsis, hyponatremia, anemia, infection, NV, ETOH, adverse medicine reaction, overdose, stroke, this is not meant to be an all-inclusive list. EKG interpreted by me (3pts min.)? @ -EKG interpreted by me demonstrating the following: Sinus tachycardia. Ventricular rate 102 bpm, CA interval 170 ms, QRS duration 97 ms, QTc 393 ms. X-rays interpreted by me (1pt min.)? @ -Chest x-ray obtained. My interpretation identifies pulmonary vascular congestion. CT interpreted by me (1pt min.)? @ -Not obtained U/S interpreted by me (1pt. min.)? @ -Duplex ultrasound of the bilateral lower extremities obtained. My interpretation identifies no evidence of a DVT. What testing was considered but not performed? (CT, X-rays, U/S, labs)? Why? @ -None What meds were considered but not given? Why? @ -None Did you discuss the management of the patient with other professionals? @ -Yes, Shey Amaya with [facility], who accepts the patient for admission. Did you reconcile home meds? @ -Yes Was smoking cessation discussed for >3mins.? @ -No Was critical care preformed (if so, how long)? @ -Yes, >35 minutes Were there social determinants of health that impacted care today? How? (Homelessness, low income, unemployed, alcoholism, drug addiction, transportation, low edu. Level, literacy, decrease access to med. care, care home, rehab)? @ -No Was there de-escalation of care discussed even if they declined? (Discuss DNR or withdrawal of care, Hospice)? @ -No What co-morbidities impacted this encounter? (DM, HTN, Smoking, COPD, CAD, Cancer, CVA, Hep., AIDS, mental health diagnosis, sleep apnea, morbid obesity)? @ -CHF, COPD, alcohol abuse, HTN Was patient admitted / discharged? @ -Admitted. Lab work demonstrates multiple irregularities. Patient is in acute renal failure with a creatinine of 3.14 and eGFR of 15. Potassium elevated at 5.6. Lactic acid elevated at 2.7. Patient also in a severe CHF exacerbation with a BNP of 174,000. Troponin elevated at 0.530, likely secondary to this. LFT elevation likely related to patient's chronic alcoholism. D-dimer elevated at 4.93. COVID, influenza, and RSV testing negative. Chest x-ray reveals cardiomegaly, pulmonary vascular congestion, and bilateral pleural effusions. Patient also severely hypertensive with a blood pressure of 220/137. Patient was given 40 mg of IV Lasix and Nitropaste for management of the CHF exacerbation. Jones catheter inserted as well. Urinalysis negative for signs of infection. Patient admitted to medicine for CHF exacerbation and acute renal failure. Heparin drip initiated. Serial troponins ordered. Consult was placed for cardiology and nephrology. While her D-dimer is elevated, her renal function prevents us from being able to get a CTA. Duplex ultrasound of the bilateral lower extremities obtained and no evidence of a DVT was identified. VQ scan was ordered and will likely be done tomorrow. Case discussed with ED attending Dr. Nascimento. Undiagnosed new problem with uncertain prognosis? @ -None Drug Therapy requiring intensive monitoring for toxicity (Heparin, Nitro, Insulin, Cardizem)? @ -Heparin Were any procedures done? @ -None Diagnosis/symptom? @ -CHF exacerbation Acute, or Chronic, or Acute on Chronic? @ -Acute on chronic Uncomplicated (without systemic symptoms) or Complicated (systemic symptoms)? @ -Complicated Side effects of treatment? @ -None Exacerbation, Progression, or Severe Exacerbation] @ -Severe exacerbation Poses a threat to life or bodily function? @ -Yes, can lead to respiratory arrest and Diagnosis/symptom? @ -Acute renal failure Acute, or Chronic, or Acute on Chronic? @ -Acute Uncomplicated (without systemic symptoms) or Complicated (systemic symptoms)? @ -Complicated Side effects of treatment? @ -None Exacerbation, Progression, or Severe Exacerbation] @ -Not applicable Poses a threat to life or bodily function? @ -Yes, can lead to life-threatening electrolyte abnormalities - Lab Data Result diagrams: 06/11/24 16:52 06/11/24 15:51 Lab Results 06/11/24 06/11/24 06/11/24 Range/Units 15:51 15:51 15:51 WBC (3.8-10.6) k/uL RBC (3.80-5.40) m/uL Hgb (11.4-16.0) gm/dL Hct (34.0-46.0) % MCV (80.0-100.0) fL MCH (25.0-35.0) pg MCHC (31.0-37.0) g/dL RDW (11.5-15.5) % Plt Count (150-450) k/uL MPV Neutrophils % % Lymphocytes % % Monocytes % % Eosinophils % % Basophils % % Neutrophils # (1.3-7.7) k/uL Lymphocytes # (1.0-4.8) k/uL Monocytes # (0-1.0) k/uL Eosinophils # (0-0.7) k/uL Basophils # (0-0.2) k/uL Hypochromasia Anisocytosis Macrocytosis PT (10.0-12.5) sec INR (<1.2) APTT (22.0-30.0) sec D-Dimer (<0.60) mg/L FEU Sodium 139 (137-145) mmol/L Potassium 5.6 H (3.5-5.1) mmol/L Chloride 106 (98-107) mmol/L Carbon Dioxide 14 L (22-30) mmol/L Anion Gap 19 mmol/L BUN 60 H (7-17) mg/dL Creatinine 3.14 H (0.52-1.04) mg/dL Est GFR (CKD-EPI)AfAm 17 (>60 ml/min/1.73 sqM) Est GFR (CKD-EPI)NonAf 15 (>60 ml/min/1.73 sqM) Glucose 90 (74-99) mg/dL Lactic Ac Sepsis Rflx Plasma Lactic Acid Arron 2.7 H* (0.7-2.0) mmol/L Calcium 9.9 (8.4-10.2) mg/dL Phosphorus (2.5-4.5) mg/dL Magnesium 2.9 H (1.6-2.3) mg/dL Total Bilirubin 0.8 (0.2-1.3) mg/dL AST 227 H (14-36) U/L ALT 152 H (4-34) U/L Alkaline Phosphatase 159 H (38-126) U/L Creatine Kinase (30-135) U/L Troponin I 0.530 H* (0.000-0.034) ng/mL NT-Pro-B Natriuret Pep 312300 pg/mL Total Protein 7.9 (6.3-8.2) g/dL Albumin 4.5 (3.5-5.0) g/dL Lipase (23-300) U/L Serum Alcohol mg/dL Influenza Type A (PCR) (Not Detectd) Influenza Type B (PCR) (Not Detectd) RSV (PCR) (Not Detectd) SARS-CoV-2 (PCR) (Not Detectd) 06/11/24 06/11/24 06/11/24 Range/Units 15:54 16:15 16:15 WBC (3.8-10.6) k/uL RBC (3.80-5.40) m/uL Hgb (11.4-16.0) gm/dL Hct (34.0-46.0) % MCV (80.0-100.0) fL MCH (25.0-35.0) pg MCHC (31.0-37.0) g/dL RDW (11.5-15.5) % Plt Count (150-450) k/uL MPV Neutrophils % % Lymphocytes % % Monocytes % % Eosinophils % % Basophils % % Neutrophils # (1.3-7.7) k/uL Lymphocytes # (1.0-4.8) k/uL Monocytes # (0-1.0) k/uL Eosinophils # (0-0.7) k/uL Basophils # (0-0.2) k/uL Hypochromasia Anisocytosis Macrocytosis PT (10.0-12.5) sec INR (<1.2) APTT (22.0-30.0) sec D-Dimer (<0.60) mg/L FEU Sodium (137-145) mmol/L Potassium (3.5-5.1) mmol/L Chloride (98-107) mmol/L Carbon Dioxide (22-30) mmol/L Anion Gap mmol/L BUN (7-17) mg/dL Creatinine (0.52-1.04) mg/dL Est GFR (CKD-EPI)AfAm (>60 ml/min/1.73 sqM) Est GFR (CKD-EPI)NonAf (>60 ml/min/1.73 sqM) Glucose (74-99) mg/dL Lactic Ac Sepsis Rflx Plasma Lactic Acid Arron (0.7-2.0) mmol/L Calcium (8.4-10.2) mg/dL Phosphorus 7.0 H (2.5-4.5) mg/dL Magnesium 2.9 H (1.6-2.3) mg/dL Total Bilirubin (0.2-1.3) mg/dL AST (14-36) U/L ALT (4-34) U/L Alkaline Phosphatase (38-126) U/L Creatine Kinase 142 H (30-135) U/L Troponin I (0.000-0.034) ng/mL NT-Pro-B Natriuret Pep pg/mL Total Protein (6.3-8.2) g/dL Albumin (3.5-5.0) g/dL Lipase 124 (23-300) U/L Serum Alcohol <10 mg/dL Influenza Type A (PCR) Not Detected (Not Detectd) Influenza Type B (PCR) Not Detected (Not Detectd) RSV (PCR) Not Detected (Not Detectd) SARS-CoV-2 (PCR) Not Detected (Not Detectd) 06/11/24 06/11/24 06/11/24 Range/Units 16:30 16:52 16:52 WBC 9.7 (3.8-10.6) k/uL RBC 3.16 L (3.80-5.40) m/uL Hgb 9.3 L (11.4-16.0) gm/dL Hct 30.1 L (34.0-46.0) % MCV 95.2 (80.0-100.0) fL MCH 29.4 (25.0-35.0) pg MCHC 30.8 L (31.0-37.0) g/dL RDW 18.9 H (11.5-15.5) % Plt Count 243 (150-450) k/uL MPV 8.1 Neutrophils % 81 % Lymphocytes % 10 % Monocytes % 5 % Eosinophils % 1 % Basophils % 1 % Neutrophils # 7.9 H (1.3-7.7) k/uL Lymphocytes # 1.0 (1.0-4.8) k/uL Monocytes # 0.5 (0-1.0) k/uL Eosinophils # 0.1 (0-0.7) k/uL Basophils # 0.1 (0-0.2) k/uL Hypochromasia Marked Anisocytosis Slight Macrocytosis Slight PT 14.4 H (10.0-12.5) sec INR 1.4 H (<1.2) APTT 23.3 (22.0-30.0) sec D-Dimer 4.93 H (<0.60) mg/L FEU Sodium (137-145) mmol/L Potassium (3.5-5.1) mmol/L Chloride (98-107) mmol/L Carbon Dioxide (22-30) mmol/L Anion Gap mmol/L BUN (7-17) mg/dL Creatinine (0.52-1.04) mg/dL Est GFR (CKD-EPI)AfAm (>60 ml/min/1.73 sqM) Est GFR (CKD-EPI)NonAf (>60 ml/min/1.73 sqM) Glucose (74-99) mg/dL Lactic Ac Sepsis Rflx Y Plasma Lactic Acid Arron (0.7-2.0) mmol/L Calcium (8.4-10.2) mg/dL Phosphorus (2.5-4.5) mg/dL Magnesium (1.6-2.3) mg/dL Total Bilirubin (0.2-1.3) mg/dL AST (14-36) U/L ALT (4-34) U/L Alkaline Phosphatase (38-126) U/L Creatine Kinase (30-135) U/L Troponin I (0.000-0.034) ng/mL NT-Pro-B Natriuret Pep pg/mL Total Protein (6.3-8.2) g/dL Albumin (3.5-5.0) g/dL Lipase (23-300) U/L Serum Alcohol mg/dL Influenza Type A (PCR) (Not Detectd) Influenza Type B (PCR) (Not Detectd) RSV (PCR) (Not Detectd) SARS-CoV-2 (PCR) (Not Detectd) - Radiology Data Radiology results: report reviewed, image reviewed Critical Care Time Critical Care Time: Yes Critical Care Time: >35 minutes Disposition Clinical Impression: CHF exacerbation, Acute renal failure, Weakness, NSTEMI (non-ST elevated myocardial infarction) Disposition: ADMITTED IP TO THIS HOSP
[2024-06-11] MEDS: NITROGLYCERIN OINT 1 INCH/GM PACKET TOPICAL STA (17:07)
[2024-06-11] MEDS: FUROSEMIDE 10 MG/ML 4 ML VIAL IV STA (17:11)
[2024-06-11] MEDS: LABETALOL 5 MG/ML VIAL MDV IVP STA (17:11)
[2024-06-11 17:13] LABS: Anisocytosis Slight; Basophils # (A) 0.1 k/uL (0-0.2); Basophils % (A) 1 %; Eosinophils # (A) 0.1 k/uL (0-0.7); Eosinophils % (A) 1 %; HCT 30.1 % (34.0-46.0); HGB 9.3 gm/dL (11.4-16.0); Hypochromasia Marked; Lymphocytes % (A) 10 %; MCH 29.4 pg (25.0-35.0); MCHC 30.8 g/dL (31.0-37.0); MCV 95.2 fL (80.0-100.0); Macrocytosis Slight; Mean Platelet Volume 8.1; Monocytes # (A) 0.5 k/uL (0-1.0); Monocytes % (A) 5 %; Neutrophils # (A) 7.9 k/uL (1.3-7.7); Neutrophils % (A) 81 %; Platelet Count 243 k/uL (150-450); RBC 3.16 m/uL (3.80-5.40); RDW 18.9 % (11.5-15.5); WBC 9.7 k/uL (3.8-10.6)
[2024-06-11] MEDS: SODIUM CHLORIDE 0.9% 500 ML 500 ML IV STA (17:30)
--- NOTE | 2024-06-11 17:30 | XR ---
EXAMINATION TYPE: XR chest 2V DATE OF EXAM: 06/11/2024 5:27 PM COMPARISON: Chest radiographs from 05/08/2024 TECHNIQUE: XR chest 2V Frontal and lateral views of the chest. CLINICAL INDICATION:Female, 64 years old with history of difficulty breathing; FINDINGS: Lungs/Pleura: Small right pleural effusion with fluid within the major fissure. Small left pleural ef fusion. No pneumothorax. Pulmonary vascularity: Mild pulmonary vascular congestion. Heart/mediastinum: Cardiomediastinal silhouette is enlarged and stable. Musculoskeletal: No acute osseous pathology. IMPRESSION: Cardiomegaly, pulmonary vascular congestion and bilateral pleural effusions. Correlate with BNP for c ongestive heart failure. [facility], , 06/11/2024 5:28 PM
[2024-06-11 17:37] LABS: INR 1.4 (<1.2); Partial Thromboplastin Time 23.3 sec (22.0-30.0); Prothrombin Time 14.4 sec (10.0-12.5)
[2024-06-11] MEDS: SODIUM ZIRCONIUM CYCLOSILICATE 10 GM PACKET PO ONE (17:48)
[2024-06-11] MEDS ORDERED: LORazepam 1 MG TAB PO PRN ×2 (17:55)
[2024-06-11] MEDS ORDERED: LORazepam 2 MG/ML INJ IV PRN ×3 (17:55)
[2024-06-11] MEDS ORDERED: LORazepam 0.5 MG TAB PO PRN (17:55)
[2024-06-11] MEDS ORDERED: ACETAMINOPHEN TAB 325 MG TAB PO PRN (17:59)
[2024-06-11] MEDS ORDERED: NALOXONE 0.4 MG/ML 1 ML VIAL IV PRN (17:59)
[2024-06-11] MEDS ORDERED: traZODone HCL 50 MG TAB PO PRN (18:05)
[2024-06-11] MEDS: MORPHINE SULFATE 4 MG/ML SYRINGE IV PRN (18:07)
[2024-06-11 18:16] LABS: Magnesium 2.9 mg/dL (1.6-2.3)
[2024-06-11] MEDS: HEPARIN SODIUM 1,000 UN/ML (10ML VL) IV ONE (18:39)
[2024-06-11 18:40] LABS: Appearance,Urine Clear (Clear); Bacteria,Urine Rare /hpf; Bilirubin,Urine Negative (Negative); Blood,Urine Negative (Negative); Color,Urine Light Yellow; Glucose,Urine (UA) Negative (Negative); Hyaline Casts,Urine 2 /lpf (0-2); Ketones,Urine Negative (Negative); Leukocyte Esterase,Urine Negative (Negative); Mucus,Urine Rare /hpf; Nitrite,Urine Negative (Negative); PH, Urine 5.5 (5.0-8.0); Protein,Urine 1+ (Negative); RBC,Urine 1 /hpf (0-5); Specific Gravity,Urine 1.015 (1.001-1.035); Squamous Epithelial Cell,Urine 1 /hpf (0-4); Urobilinogen,Urine <2.0 mg/dL (<2.0); WBC,Urine 3 /hpf (0-5)
[2024-06-11] MEDS: HEPARIN SOD,PORK IN 0.45% NACL 25,000 UNIT in 0.45% NACL 1 250ML.BAG IV SCH (18:40)
[2024-06-11] MEDS: DEXTROSE 5%-0.45% NACL 1,000 ML IV SCH (19:04)
--- NOTE | 2024-06-11 19:43 | US ---
EXAMINATION TYPE: US venous doppler duplex LE BI DATE OF EXAM: 06/11/2024 5:56 PM COMPARISON: XR Chest CLINICAL INDICATION: Female, 64 years old with history of dvt; Patient states no pain or swelling. No redness. No hx DVT, Pain TECHNIQUE: The lower extremity deep venous system is examined utilizing real time linear array sonog rishi with graded compression, color doppler sonography, and spectral doppler. SIDE PERFORMED: Bilateral FINDINGS: VESSELS IMAGED: Common Femoral Vein Deep Femoral Vein Greater Saphenous Vein * Femoral Vein Popliteal Vein Small Saphenous Vein * Proximal Calf Veins (* superficial vessels) Right Leg: Negative for DVT , Color Doppler imaging shows patency of the vessels. Spectral waveforms are within normal limits. Left Leg: Negative for DVT, Color Doppler imaging shows patency of the vessels. Spectral waveforms a re within normal limits. IMPRESSION: No ultrasound evidence for deep venous thrombosis. [facility], , 06/11/2024 7:40 PM
[2024-06-11] MEDS: SODIUM BICARB 8.4% 50 ML SYR (1 MEQ/ML) IV STA (22:06)
[2024-06-11] MEDS: METOPROLOL TARTRATE 50 MG TAB PO SCH (22:08)
--- NOTE | 2024-06-11 23:41 | US ---
EXAM: US Retroperitoneal Limited, Renal CLINICAL HISTORY: ITS.REASON US Reason: carmen TECHNIQUE: Real-time limited ultrasound of the retroperitoneum with image documentation. COMPARISON: No relevant prior studies available. FINDINGS: Right kidney: Right kidney measures 8 cm. Diffusely increased cortical echogenicity. No focal lesion. No hydronephrosis. Left kidney: Left kidney measures 8.9 cm. Superior pole is obscured. No hydronephrosis. Bladder: Jones catheter within the bladder. Free fluid: Right upper quadrant ascites. IMPRESSION: 1. No hydronephrosis. 2. Increased cortical echogenicity mostly in the right kidney as can be seen in the setting of nonspecific medical renal disease. 3. Right upper quadrant ascites.
[2024-06-12 01:03] LABS: Lactic Acid, Venous 2.4 mmol/L (0.7-2.0)
[2024-06-12] MEDS: HEPARIN SODIUM 1,000 UN/ML (10ML VL) IV PRN (01:24)
[2024-06-12] MEDS: LORazepam 1 MG TAB PO PRN (04:46)
[2024-06-12] MEDS: FUROSEMIDE 10 MG/ML 4 ML VIAL IV SCH (06:17)
[2024-06-12] MEDS: SODIUM CHLORIDE 0.9% 1,000 ML IV ONE (06:18)
[2024-06-12] MEDS: SODIUM CHLORIDE 0.9% 1,000 ML IV SCH (06:18)
[2024-06-12 07:31] LABS: Anisocytosis Slight; Basophils # (A) 0.1 k/uL (0-0.2); Basophils % (A) 1 %; Eosinophils % (A) 0 %; HCT 30.7 % (34.0-46.0); HGB 9.3 gm/dL (11.4-16.0); Hypochromasia Marked; Lymphocytes # (A) 1.1 k/uL (1.0-4.8); Lymphocytes % (A) 10 %; MCH 29.4 pg (25.0-35.0); MCHC 30.4 g/dL (31.0-37.0); MCV 96.8 fL (80.0-100.0); Macrocytosis Slight; Mean Platelet Volume 8.5; Monocytes # (A) 0.7 k/uL (0-1.0); Monocytes % (A) 6 %; Neutrophils # (A) 9.3 k/uL (1.3-7.7); Neutrophils % (A) 80 %; Platelet Count 256 k/uL (150-450); RBC 3.17 m/uL (3.80-5.40); WBC 11.5 k/uL (3.8-10.6)
[2024-06-12 08:17] LABS: INR 1.5 (<1.2); Prothrombin Time 15.2 sec (10.0-12.5)
[2024-06-12] MEDS: SACUBITRIL/VALSARTAN 24 MG-26 MG TABLET PO SCH (08:36)
[2024-06-12 08:38] LABS: African American GFR (CKD) 16 (>60 ml/min/1.73 sqM); Anion Gap 17 mmol/L; Blood Urea Nitrogen 70 mg/dL (7-17); Calcium 8.9 mg/dL (8.4-10.2); Carbon Dioxide 13 mmol/L (22-30); Chloride 107 mmol/L (98-107); Glucose 85 mg/dL (74-99); Magnesium 2.7 mg/dL (1.6-2.3); Non-African American GFR(CKD) 14 (>60 ml/min/1.73 sqM); Potassium 5.2 mmol/L (3.5-5.1); Sodium 137 mmol/L (137-145)
--- NOTE | 2024-06-12 09:23 | NM ---
EXAMINATION TYPE: NM pul vent and perfuse DATE OF EXAM: 06/12/2024 CLINICAL INDICATION: Female, 64 years old with history of MECHE, elevated d-dimer; shortness of breath COMPARISON: Radiograph 06/11/2024 TECHNIQUE: Utilizing inhalation of 28.8 mCi Tc 99m DTPA aerosol and intravenous injection of 4.8 mCi of Tc 99m MAA, ventilation and perfusion images are acquired post injection in multiple projections. FINDINGS: Mild heterogeneity of ventilation and perfusion throughout the lungs. Photopenia related to enlarged heart. There is a solitary triple matched perfusion defect at the lateral right midlung. No other mis match perfusion defect is seen. IMPRESSION: 1. Solitary triple matched defect right mid lung qualifies as very low probability for pulmonary embo jenaro. Correlate for underlying airspace disease here. 2. No suspicious mismatched perfusion defect is seen. 3. Cardiomegaly. [facility], , 06/12/2024 9:21 AM
[2024-06-12] MEDS: PANTOPRAZOLE 40 MG/10 ML VIAL IV SCH (09:42)
[2024-06-12] MEDS ORDERED: hydrALAZINE HCL 20 MG/ML 1 ML VIAL IVP PRN (10:25)
--- NOTE | 2024-06-12 10:28 | P.NPCON ---
History of Present Illness - Reason for Consult acute renal failure, chronic renal failure - History of Present Illness Reason for consultation: Acute kidney injury on chronic kidney disease History of present illness: Patient is a 64-year-old female seen in renal consultation for acute kidney injury on chronic kidney disease. Patient has chronic kidney disease stage IIIb with creatinine 1.8-1.9 in April 2024. Creatinine this admission was 3.14 and is fairly stable at 3.3. Patient came to the hospital due to generalized weakness and shortness of breath going on for 3 weeks. Patient said dyspnea was progressively getting worse and she was also urinating less. She also admits to depressed appetite. Patient states she is also lost about 10 pounds in the last month or so. She denies any gross hematuria or dysuria. Denies history of diabetes or coronary artery disease. Denies regular use of nonsteroidals. She is currently on a nasal cannula. Denies seeing nephrology outpatient. Cur rently receiving IV Lasix 40 mg twice daily. Vital signs are stable. General: No acute distress. HEENT: Head exam is unremarkable. On nasal cannula. LUNGS: No audible rhonchi or wheezes. HEART: Rate and Rhythm are regular. ABDOMEN: Nontender. EXTREMITITES: Trace edema. Past Medical History Past Medical History: Heart Failure, COPD, Pneumonia Additional Past Medical History / Comment(s): Alcohol Dependence, ETOH withdrawal seizures History of Any Multi-Drug Resistant Organisms: None Reported Past Surgical History: Section Past Psychological History: No Psychological Hx Reported Smoking Status: Current every day smoker Past Alcohol Use History: Occasional - Past Family History Mother Additional Family Medical History / Comment(s): Mother is alive at age 91 with no major medical problems. Father Additional Family Medical History / Comment(s): Father in his 70s from non- A non-B hepatitis Sister(s) Additional Family Medical History / Comment(s): She has one sister with no major medical problems. Patient does not have any brothers. Daughter(s) Additional Family Medical History / Comment(s): Ptients daughter overdosed and in July 2023. Patient does not have any sons. Medications and Allergies Home Medications Medication Instructions Recorded Confirmed Type Sacubitril/Valsartan [Entresto 24 1 tab PO BID 30 Days #30 tab 09/15/23 06/11/24 Rx mg-26 mg Tablet] Metoprolol Tartrate [Lopressor] 50 mg PO BID 05/07/24 06/11/24 History amLODIPine [Norvasc] 5 mg PO AC-SUPPER 05/07/24 06/11/24 History traZODone HCL [Desyrel] 50 mg PO HS PRN 05/07/24 06/11/24 History Allergies Allergy/AdvReac Type Severity Reaction Status Date / Time No Known Allergies Allergy Verified 06/11/24 16:52 Physical Exam Vitals: Vital Signs Temp Pulse Pulse Resp BP BP Pulse Ox 06/12/24 09:39 73 20 176/112 96 06/12/24 04:00 68 18 188/119 97 06/12/24 02:00 66 19 06/12/24 00:00 98.1 F 66 19 158/118 97 06/11/24 20:00 97.6 F 15 180/128 97 06/11/24 18:43 72 18 168/112 91 L 06/11/24 18:21 70 18 147/96 91 L 06/11/24 18:09 79 18 136/83 91 L 06/11/24 17:49 71 16 153/97 93 L 06/11/24 17:33 68 20 162/103 06/11/24 17:15 66 20 148/120 91 L 06/11/24 17:13 101 H 20 220/137 06/11/24 15:43 93 20 201/132 94 L 06/11/24 15:08 97.9 F 102 H 20 220/150 98 Intake and Output 06/11/24 06/12/24 06/12/24 22:59 06:59 14:59 Intake Total 163.982 Output Total 350 Balance -186.018 Intake: IV 120 Dextrose 5%-0.45% NaCl 1, 120 000 ml @ 20 mls/hr IV . Q24H [facility] Rx#:[id number] Intake, IV Titration 43.982 Amount Heparin Sod,Pork in 0.45% 43.982 NaCl 25,000 unit In 0.45 % NaCl 1 250ml.bag @ 12 UNITS/KG/HR 6.532 mls/hr IV .Q24H [facility] Rx#: [id number] Output: Urine 350 Other: Voiding Method Indwelling Catheter Indwelling Catheter Weight 54.431 kg Results - Lab Results Most recent lab results Calcium 8.9 mg/dL (8.4-10.2) 06/12/24 07:13 Phosphorus 7.0 mg/dL (2.5-4.5) H 06/11/24 16:15 Magnesium 2.7 mg/dL (1.6-2.3) H 06/12/24 07:13 06/12/24 07:13 06/12/24 07:13 Assessment and Plan Plan: Assessment: 1. Acute kidney injury secondary to ATN secondary to cardiorenal syndrome. Cre atinine stable at 3.3 today. UA with 1+ protein. No hydronephrosis noted on kidney ultrasound. Kidneys noted to be atrophic. 2. Chronic kidney disease stage IIIb with baseline creatinine 1.8-1.9 from April 2024. Etiology is nephrosclerosis. 3. Acute hypoxic respiratory failure. 4. Volume overload. 5. Hypertension with chronic kidney disease. 6. Hyperkalemia secondary to acute kidney injury, Entresto and acidosis. Improved. 7. Metabolic acidosis secondary to acute kidney injury. Plan: Maintain IV Lasix. Follow-up echocardiogram. 2 amp sodium bicarb IV push today. Add oral bicarb. Amlodipine and metoprolol started today. Add as needed hydralazine. Avoid nephrotoxins. Continue to monitor renal function and urine output. Thank you for the consultation. I will continue to follow the patient with you during her hospital stay.
--- NOTE | 2024-06-12 10:53 | P.HPIM ---
History of Present Illness This is a pleasant 64 years old female with past medical history of multiple medical problems including bipolar disorder, with psychotic features, chronic kidney disease. Previous history of alcohol use disorder but not recently. She lives with her in their place and [place]. Patient was starting feeling weakness for about a week. Associated with low appetite for the last 3 to 4 days. So she decided to come to the hospital Patient is heavy smoker smokes 1.5 pack/day, we counseled her to quit smoking with risks explained, she was not sure but she agrees to the nicotine patch. She denies current alcohol or illicit drugs. Patient states her last alcohol drink was before [place] which is more than a month ago. She denies chest pain or coughing but but she has been complaining from shortness of breath for the last 3 to 4 days No specific GI or symptoms other than some nausea She denies falling. No headache dizziness weakness or numbness Her daughter about 8 months ago, she still misses her but she denies depression. And she confirms to me strongly denied any suicidal or homicidal ideation She is complaining from right shoulder pain Hemodynamically stable and patient is afebrile. Blood pressure is elevated on admission 180/128 and 188/119 Labs reviewed, WBC slightly up at 11.5, hemoglobin stable 9.3. LFTs unremarkable Creatinine slightly above baseline at 3.1 with baseline 1.8-2.2. Ammonia is negative. Lactic acid was elevated 2.7, 7.9 and 2.0 which is within the reference range Troponin is elevated 0.5, 0.5 and 0.47 proBNP is elevated [id number] Alcohol less than 10 Renal ultrasound showing no hydronephrosis with right upper quadrant ascites and decrease cortical echogenicity in the right kidney which is nonspecific kidney disease Chest x-ray showing cardiomegaly with bilateral pleural effusion and pulmonary vascular congestion D-dimer was elevated 4.9, ultrasound of the leg is negative for DVT. Perfusion test of the lung showing solitary triple matched defect right mid lung to qualify as very low probability for pulmonary embolus. Correlate for underlying airspace disease. also No suspicious mismatch perfusion defect is seen. Cardiomegaly No recent echocardiogram, last echo was from 08/2020 showing ejection fraction 30 to 35% Patient was started on heparin drip in the emergency room, received 2 L of fluid and CIWA protocol. Also patient started on ceftriaxone Review of Systems Review of systems CONSTITUTIONAL: No fever, no malaise, no fatigue. HEENT: No recent visual problems or hearing problems. Denied any sore throat. CARDIOVASCULAR: No orthopnea, PND, no palpitations, no syncope. PULMONARY: No shortness of breath, no cough, no hemoptysis. GASTROINTESTINAL: No diarrhea, no nausea, no vomiting, no abdominal pain. Normoactive bowel sounds. NEUROLOGICAL: No headaches, no weakness, no numbness. HEMATOLOGICAL: Denies any bleeding or petechiae. GENITOURINARY: Denies any burning micturition, frequency, or urgency. MUSCULOSKELETAL/RHEUMATOLOGICAL: Denies any joint pain, swelling, or any muscle pain. ENDOCRINE: Denies any polyuria or polydipsia. Past Medical History Past Medical History: Heart Failure, COPD, Pneumonia Additional Past Medical History / Comment(s): Alcohol Dependence, ETOH withdrawal seizures History of Any Multi-Drug Resistant Organisms: None Reported Past Surgical History: Section Past Psychological History: No Psychological Hx Reported Smoking Status: Current every day smoker Past Alcohol Use History: Occasional - Past Family History Mother Additional Family Medical History / Comment(s): Mother is alive at age 91 with no major medical problems. Father Additional Family Medical History / Comment(s): Father in his 70s from non- A non-B hepatitis Sister(s) Additional Family Medical History / Comment(s): She has one sister with no major medical problems. Patient does not have any brothers. Daughter(s) Additional Family Medical History / Comment(s): Ptients daughter overdosed and in July 2023. Patient does not have any sons. Medications and Allergies Home Medications Medication Instructions Recorded Confirmed Type Sacubitril/Valsartan [Entresto 24 1 tab PO BID 30 Days #30 tab 09/15/23 06/11/24 Rx mg-26 mg Tablet] Metoprolol Tartrate [Lopressor] 50 mg PO BID 05/07/24 06/11/24 History amLODIPine [Norvasc] 5 mg PO AC-SUPPER 05/07/24 06/11/24 History traZODone HCL [Desyrel] 50 mg PO HS PRN 05/07/24 06/11/24 History Allergies Allergy/AdvReac Type Severity Reaction Status Date / Time No Known Allergies Allergy Verified 06/11/24 16:52 Physical Exam Vitals: Vital Signs Temp Pulse Pulse Resp BP BP Pulse Ox 06/12/24 09:39 73 20 176/112 96 06/12/24 04:00 68 18 188/119 97 06/12/24 02:00 66 19 06/12/24 00:00 98.1 F 66 19 158/118 97 06/11/24 20:00 97.6 F 15 180/128 97 06/11/24 18:43 72 18 168/112 91 L 06/11/24 18:21 70 18 147/96 91 L 06/11/24 18:09 79 18 136/83 91 L 06/11/24 17:49 71 16 153/97 93 L 06/11/24 17:33 68 20 162/103 06/11/24 17:15 66 20 148/120 91 L 06/11/24 17:13 101 H 20 220/137 06/11/24 15:43 93 20 201/132 94 L 06/11/24 15:08 97.9 F 102 H 20 220/150 98 Intake and Output 06/11/24 06/12/24 06/12/24 22:59 06:59 14:59 Intake Total 163.982 Output Total 350 Balance -186.018 Intake: IV 120 Dextrose 5%-0.45% NaCl 1, 120 000 ml @ 20 mls/hr IV . Q24H CHRISTY Rx#:[id number] Intake, IV Titration 43.982 Amount Heparin Sod,Pork in 0.45% 43.982 NaCl 25,000 unit In 0.45 % NaCl 1 250ml.bag @ 12 UNITS/KG/HR 6.532 mls/hr IV .Q24H CHRISTY Rx#: [id number] Output: Urine 350 Other: Voiding Method Indwelling Catheter Indwelling Catheter Weight 54.431 kg GENERAL: The patient is alert and oriented x3, not in any acute distress. Well d eveloped, well nourished. Generally weak and thin built HEENT: Pupils are round and equally reacting to light. EOMI. No scleral icterus. No conjunctival pallor. Normocephalic, atraumatic. No pharyngeal erythema. No thyromegaly. CARDIOVASCULAR: S1 and S2 present. No murmurs, rubs, or gallops. PULMONARY: Chest is clear to auscultation, no wheezing , no crackles. ABDOMEN: Soft, nontender, nondistended, normoactive bowel sounds. No palpable organomegaly. MUSCULOSKELETAL: No joint swelling or deformity. EXTREMITIES: No cyanosis, clubbing, or pedal edema. NEUROLOGICAL: Gross neurological examination did not reveal any focal deficits. SKIN: No rashes. no petechiae. Results CBC & Chem 7: 06/12/24 07:13 06/12/24 07:13 Labs: Abnormal Lab Results - Last 24 Hours (Table) 06/11/24 06/11/24 06/11/24 Range/Units 15:51 15:51 15:51 WBC (3.8-10.6) k/uL RBC (3.80-5.40) m/uL Hgb (11.4-16.0) gm/dL Hct (34.0-46.0) % MCHC (31.0-37.0) g/dL RDW (11.5-15.5) % Neutrophils # (1.3-7.7) k/uL PT (10.0-12.5) sec INR (<1.2) APTT (22.0-30.0) sec D-Dimer (<0.60) mg/L FEU Potassium 5.6 H (3.5-5.1) mmol/L Carbon Dioxide 14 L (22-30) mmol/L BUN 60 H (7-17) mg/dL Creatinine 3.14 H (0.52-1.04) mg/dL Plasma Lactic Acid Arron 2.7 H* (0.7-2.0) mmol/L Phosphorus (2.5-4.5) mg/dL Magnesium 2.9 H (1.6-2.3) mg/dL AST 227 H (14-36) U/L ALT 152 H (4-34) U/L Alkaline Phosphatase 159 H (38-126) U/L Creatine Kinase (30-135) U/L Troponin I 0.530 H* (0.000-0.034) ng/mL Vitamin B12 (200.0-944.0) pg/mL Urine Protein (Negative) Urine Bacteria (None) /hpf Urine Mucus (None) /hpf 06/11/24 06/11/24 06/11/24 Range/Units 16:15 16:15 16:52 WBC (3.8-10.6) k/uL RBC (3.80-5.40) m/uL Hgb (11.4-16.0) gm/dL Hct (34.0-46.0) % MCHC (31.0-37.0) g/dL RDW (11.5-15.5) % Neutrophils # (1.3-7.7) k/uL PT 14.4 H (10.0-12.5) sec INR 1.4 H (<1.2) APTT (22.0-30.0) sec D-Dimer 4.93 H (<0.60) mg/L FEU Potassium (3.5-5.1) mmol/L Carbon Dioxide (22-30) mmol/L BUN (7-17) mg/dL Creatinine (0.52-1.04) mg/dL Plasma Lactic Acid Arron (0.7-2.0) mmol/L Phosphorus 7.0 H (2.5-4.5) mg/dL Magnesium 2.9 H (1.6-2.3) mg/dL AST (14-36) U/L ALT (4-34) U/L Alkaline Phosphatase (38-126) U/L Creatine Kinase 142 H (30-135) U/L Troponin I (0.000-0.034) ng/mL Vitamin B12 2707.0 H (200.0-944.0) pg/mL Urine Protein (Negative) Urine Bacteria (None) /hpf Urine Mucus (None) /hpf 06/11/24 06/11/24 06/11/24 Range/Units 16:52 18:19 19:30 WBC (3.8-10.6) k/uL RBC 3.16 L (3.80-5.40) m/uL Hgb 9.3 L (11.4-16.0) gm/dL Hct 30.1 L (34.0-46.0) % MCHC 30.8 L (31.0-37.0) g/dL RDW 18.9 H (11.5-15.5) % Neutrophils # 7.9 H (1.3-7.7) k/uL PT (10.0-12.5) sec INR (<1.2) APTT (22.0-30.0) sec D-Dimer (<0.60) mg/L FEU Potassium (3.5-5.1) mmol/L Carbon Dioxide (22-30) mmol/L BUN (7-17) mg/dL Creatinine (0.52-1.04) mg/dL Plasma Lactic Acid Arron (0.7-2.0) mmol/L Phosphorus (2.5-4.5) mg/dL Magnesium (1.6-2.3) mg/dL AST (14-36) U/L ALT (4-34) U/L Alkaline Phosphatase (38-126) U/L Creatine Kinase (30-135) U/L Troponin I 0.543 H* (0.000-0.034) ng/mL Vitamin B12 (200.0-944.0) pg/mL Urine Protein 1+ H (Negative) Urine Bacteria Rare H (None) /hpf Urine Mucus Rare H (None) /hpf 06/11/24 06/11/24 06/11/24 Range/Units 19:30 22:02 23:54 WBC (3.8-10.6) k/uL RBC (3.80-5.40) m/uL Hgb (11.4-16.0) gm/dL Hct (34.0-46.0) % MCHC (31.0-37.0) g/dL RDW (11.5-15.5) % Neutrophils # (1.3-7.7) k/uL PT (10.0-12.5) sec INR (<1.2) APTT 30.1 H (22.0-30.0) sec D-Dimer (<0.60) mg/L FEU Potassium (3.5-5.1) mmol/L Carbon Dioxide (22-30) mmol/L BUN (7-17) mg/dL Creatinine (0.52-1.04) mg/dL Plasma Lactic Acid Arron 2.7 H* (0.7-2.0) mmol/L Phosphorus (2.5-4.5) mg/dL Magnesium (1.6-2.3) mg/dL AST (14-36) U/L ALT (4-34) U/L Alkaline Phosphatase (38-126) U/L Creatine Kinase (30-135) U/L Troponin I 0.476 H* (0.000-0.034) ng/mL Vitamin B12 (200.0-944.0) pg/mL Urine Protein (Negative) Urine Bacteria (None) /hpf Urine Mucus (None) /hpf 06/11/24 06/12/24 06/12/24 Range/Units 23:54 03:44 07:13 WBC 11.5 H (3.8-10.6) k/uL RBC 3.17 L (3.80-5.40) m/uL Hgb 9.3 L (11.4-16.0) gm/dL Hct 30.7 L (34.0-46.0) % MCHC 30.4 L (31.0-37.0) g/dL RDW 19.0 H (11.5-15.5) % Neutrophils # 9.3 H (1.3-7.7) k/uL PT (10.0-12.5) sec INR (<1.2) APTT (22.0-30.0) sec D-Dimer (<0.60) mg/L FEU Potassium (3.5-5.1) mmol/L Carbon Dioxide (22-30) mmol/L BUN (7-17) mg/dL Creatinine (0.52-1.04) mg/dL Plasma Lactic Acid Arron 2.4 H* 9.7 H* (0.7-2.0) mmol/L Phosphorus (2.5-4.5) mg/dL Magnesium (1.6-2.3) mg/dL AST (14-36) U/L ALT (4-34) U/L Alkaline Phosphatase (38-126) U/L Creatine Kinase (30-135) U/L Troponin I (0.000-0.034) ng/mL Vitamin B12 (200.0-944.0) pg/mL Urine Protein (Negative) Urine Bacteria (None) /hpf Urine Mucus (None) /hpf 06/12/24 06/12/24 06/12/24 Range/Units 07:13 07:13 07:13 WBC (3.8-10.6) k/uL RBC (3.80-5.40) m/uL Hgb (11.4-16.0) gm/dL Hct (34.0-46.0) % MCHC (31.0-37.0) g/dL RDW (11.5-15.5) % Neutrophils # (1.3-7.7) k/uL PT 15.2 H (10.0-12.5) sec INR 1.5 H (<1.2) APTT 43.0 H (22.0-30.0) sec D-Dimer (<0.60) mg/L FEU Potassium 5.2 H (3.5-5.1) mmol/L Carbon Dioxide 13 L (22-30) mmol/L BUN 70 H (7-17) mg/dL Creatinine 3.31 H (0.52-1.04) mg/dL Plasma Lactic Acid Arron (0.7-2.0) mmol/L Phosphorus (2.5-4.5) mg/dL Magnesium 2.7 H (1.6-2.3) mg/dL AST (14-36) U/L ALT (4-34) U/L Alkaline Phosphatase (38-126) U/L Creatine Kinase (30-135) U/L Troponin I (0.000-0.034) ng/mL Vitamin B12 (200.0-944.0) pg/mL Urine Protein (Negative) Urine Bacteria (None) /hpf Urine Mucus (None) /hpf Assessment and Plan Assessment: Elevated troponin, rule out cardiac causes like non-STEMI Acute CHF, with low echocardiogram with ejection fraction 30-35 % from echo on 2020 Hypertensive with urgency on admission Acute kidney injury on CKD stage III most likely cardiorenal syndrome Calorie protein malnutrition, moderate Mild hypoxic respiratory failure History of bipolar depression with psychotic feature, currently not an active issue Bereavement for Dr. more than 6 months ago. Currently stable Previous history of alcohol use disorder, currently she is more sober Plan: Patient started on heparin drip Cardiology consult Continue with the current antihypertensive medication, currently on Norvasc 10 mg, metoprolol 50 mg twice daily and hydralazine 75 mg 3 times daily as well as IV Lasix Continue with IV Lasix with close monitoring of input and output, creatinine and electrolytes Nephrology team consult, continue with sodium bicarb Nutrition consult Labs and medication were reviewed.. Continue same treatment. Continue with symptomatic treatment. Resume home medication. Monitor labs and vitals. DVT and GI prophylaxis. Further recommendations as per clinical course of the patient DVT prophylaxis: Subcutaneous heparin GI Prophylaxis: Pepcid PT/OT: Pending Prognosis is guarded
[2024-06-12] MEDS: SODIUM BICARBONATE TAB 650 MG TAB PO SCH (10:59)
[2024-06-12] MEDS: hydrALAZINE HCL 25 MG TAB PO SCH (10:59)
[2024-06-12] MEDS: amLODIPine 5 MG TAB PO SCH (11:00)
[2024-06-12] MEDS: SODIUM BICARB 8.4% 50 ML SYR (1 MEQ/ML) IV STA (11:01)
--- NOTE | 2024-06-12 11:28 | CA ---
Transthoracic Echo Report Name: Noemi Kiran Age: 64 Gender: F : 1960 Exam Date: 06/12/2024 09:15 Exam Location: [facility] Ht (in): 67 Wt (lb): 120 Ordering Physician: Haylee Gillis Attending/Referring Phys: Bill Peddler Jaleesa Razo RDCS Procedure CPT: Indications: Heart failure Cardiac Hx: CHF Technical Quality: Good Contrast 1: Total Dose (mL): Contrast 2: Total Dose (mL): MEASUREMENTS (Male / Female) Normal Values 2D ECHO LV Diastolic Diameter PLAX 4.2 cm 4.2 - 5.9 / 3.9 - 5.3 cm LV Systolic Diameter PLAX 4.0 cm IVS Diastolic Thickness 1.6 cm 0.6 - 1.0 / 0.6 - 0.9 cm LVPW Diastolic Thickness 1.5 cm 0.6 - 1.0 / 0.6 - 0.9 cm LV Relative Wall Thickness 0.8 RV Internal Dim ED PLAX 3.8 cm LA Systolic Diameter LX 4.5 cm 3.0 - 4.0 / 2.7 - 3.8 cm LV Diastolic Volume MOD BP 158.5 cm??? 67 - 155 / 56 - 104 cm??? LV Systolic Volume MOD BP 99.4 cm??? 22 - 58 / 19 - 49 cm??? LV Ejection Fraction MOD BP 37.3 % >= 55 % LV Cardiac Index MOD BP 2775.7 cm???/min???m??? LV Diastolic Volume MOD 4C 157.8 cm??? LV Systolic Volume MOD 4C 114.6 cm??? LV Ejection Fraction MOD 4C 27.4 % LV Cardiac Index MOD 4C 2033.6 cm???/min???m??? LV Diastolic Length 4C 8.5 cm LV Systolic Length 4C 7.6 cm LV Diastolic Volume MOD 2C 163.1 cm??? LV Systolic Volume MOD 2C 101.9 cm??? LV Ejection Fraction MOD 2C 37.5 % LV Cardiac Index MOD 2C 2878.0 cm???/min???m??? LV Diastolic Length 2C 8.7 cm LV Systolic Length 2C 7.8 cm LA Volume 91.8 cm??? 18 - 58 / 22 - 52 cm??? LA Volume Index 57.6 cm???/m??? 16 - 28 cm???/m??? M-MODE Aortic Root Diameter MM 3.1 cm AV Cusp Separation MM 2.3 cm DOPPLER AV Peak Velocity 139.7 cm/s AV Peak Gradient 7.8 mmHg MV Area PHT 6.6 cm??? Mitral E Point Velocity 132.2 cm/s Mitral A Point Velocity 66.4 cm/s Mitral E to A Ratio 2.0 MV Deceleration Time 114.5 ms TR Peak Velocity 337.5 cm/s TR Peak Gradient 45.6 mmHg Right Ventricular Systolic Press 50.6 mmHg FINDINGS Left Ventricle Left ventricular ejection fraction is estimated at 20-25 %. Severely increased septal wall thickness. Moderately increased posterior wall thickness. Severely increased left ventricular diastolic volume. Severely increased left ventricular systolic volume. Severly decreased left ventricular ejection fraction. Right Ventricle Moderate right ventricular dilatation. Moderate pulmonary hypertension. Right ventricular systolic pressure estimated at 51 mm hg. Right Atrium Severe right atrial dilatation. No right atrial thrombus or mass seen. Left Atrium Moderately increased left atrial diameter. Severely increased left atrial volume. Mildly increased left atrial area. Mitral Valve Structurally normal mitral valve. Mild mitral regurgitation. Aortic Valve Trileaflet aortic valve. No aortic valve stenosis or regurgitation. Tricuspid Valve Structurally normal tricuspid valve. Moderate tricuspid regurgitation. Pulmonic Valve Structurally normal pulmonic valve. Mild pulmonic regurgitation. Pericardium Moderate pericardial effusion. Aorta Normal size aortic root and proximal ascending aorta. CONCLUSIONS Enlarged left ventricle with a global decrease in contractility estimate ejection fraction of 20-25 % by. There is biatrial enlargement prominent right ventricle. There is moderate pulmonary hypertension. Mild mitral regurgitation moderate tricuspid regurgitation. Moderate pericardial effusion not compromising the filling of chambers. Previewed by: Dr. Quinn Quiñonez MD (Electronically Signed) Final Date: 12 June 2024 11:28
--- NOTE | 2024-06-12 11:46 | P.CRDCN ---
History of Present Illness Consult date: 06/12/24 Reason for Consult (text): NSTEMI History of present illness: This is a 64-year-old female patient previously seen by Dr. Villar in September 2020 with past medical history of coronary artery disease, nonischemic cardiomyopathy, hypertension, dyslipidemia, tobacco use. We have been asked to evaluate the patient for NSTEMI. Patient states that she came into the hospital because she was feeling very weak which was progressively worsening. She has had decreased appetite and weight loss. Patient complains of shortness of breath is progressively worsening. She denies having chest pain and no shortness of breath. She presented with a blood pressure of 220/150. She is status post 2 L of IV fluid, sodium bicarb drip, Nitropaste, labetalol 20 mg IV push x 1, Toradol IV Lasix 40 mg x 1 and Lokelma. Her blood pressure is now 176/112, heart rate 73, pulse ox 98% on room air. Patient is seen today in the emergency center waiting for a bed on the cardiac stepdown unit. Patient has been started on heparin drip for PE protocol. Patient is also on the CIWA protocol. -EKG: Sinus rhythm 102 bpm -Chest x-ray: Cardiomegaly, pulmonary vascular congestion and bilateral pleural effusions. -Sound duplex of the bilateral lower extremities negative for DVT. -Renal ultrasound reveals no hydronephrosis. Increased cortical echogenicity mostly the right kidney can be seen in the setting of nonspecific medical renal disease. Right upper quadrant ascites. -Echocardiogram reveals EF of 20 to 25%. Biatrial enlargement, prominent right ventricle. Moderate pulmonary hypertension, mild mitral digitation, moderate tricuspid regurgitation, moderate pericardial effusion not compromising the filling of chambers. -Laboratory studies: WBC 11.5, hemoglobin 9.3. INR 1.5, D-dimer 4.93. Potassium initially 5.6 now 5.2. BUN 70 and creatinine 3.31. Lactic acid 2.4 and repeat 2. Troponins 0.53, 0.54, 0.47. proBNP 174,000. Cepheid viral panel negative. -Home cardiac medications: - Review Of Systems: At the time of my exam: CONSTITUTIONAL: Denies fever or chills. HEENT: Denies blurred vision, vision changes, or eye pain. Denies hemoptysis CARDIOVASCULAR: Denies chest pain. Denies orthopnea. Denies PND. Denies palpitations RESPIRATORY: Denies shortness of breath. GASTROINTESTINAL: Denies abdominal pain. Denies nausea or vomiting. HEMATOLOGIC: Denies bleeding disorders. GENITOURINARY: Denies any blood in urine. SKIN: Denies puritis. Denies rash. Physical examination: Gen: This is a thin cachectic 64-year-old female appears to be in no acute respiratory distress. VS: reviewed HEENT: Head is atraumatic, normocephalic. Pupils equal, round. Sclerae is anicteric. NECK: Supple. No JVD. LUNGS: Clear to auscultation. No wheezes or rhonchi. No intercostal retractions. HEART: Regular rate and rhythm. No murmur. ABDOMEN: Soft No tenderness. EXTREMITIES: Trace bilateral lower extremity edema. No calf tenderness. NEUROLOGICAL: Patient is awake, alert. Assessment: Acute kidney injury Hyperkalemia Metabolic acidosis secondary to ESPERANZA Elevated troponin but flat with nonischemic pattern Hypertensive urgency/emergency History of coronary artery disease Nonischemic cardiomyopathy with current EF of 20 to 25% Moderate pulmonary hypertension Moderate pericardial effusion Valvular heart disease with mild mitral regurgitation and moderate tricuspid regurgitation Hypertension Dyslipidemia Chronic anemia Chronic kidney disease stage IIIb Tobacco use and dependence Plan: Resume patient's home cardiac medications with the following changes Increase frequency of amlodipine to 5 mg twice daily Add hydralazine 75 mg 3 times daily Discontinue heparin drip as pulmonary embolism is low probability on VQ scan Obtain 2-D echocardiogram and Doppler study to assess cardiac structure and function Further recommendations to follow based upon clinical course Thank you kindly for this consultation. Nurse practitioner note has been reviewed, I agree with documented findings and plan of care. Patient was seen and examined. Past Medical History Past Medical History: Heart Failure, COPD, Pneumonia Additional Past Medical History / Comment(s): Alcohol Dependence, ETOH w ithdrawal seizures History of Any Multi-Drug Resistant Organisms: None Reported Past Surgical History: Section Past Psychological History: No Psychological Hx Reported Smoking Status: Current every day smoker Past Alcohol Use History: Occasional - Past Family History Mother Additional Family Medical History / Comment(s): Mother is alive at age 91 with no major medical problems. Father Additional Family Medical History / Comment(s): Father in his 70s from non- A non-B hepatitis Sister(s) Additional Family Medical History / Comment(s): She has one sister with no major medical problems. Patient does not have any brothers. Daughter(s) Additional Family Medical History / Comment(s): Ptients daughter overdosed and in July 2023. Patient does not have any sons. Medications and Allergies Home Medications Medication Instructions Recorded Confirmed Type Sacubitril/Valsartan [Entresto 24 1 tab PO BID 30 Days #30 tab 09/15/23 06/11/24 Rx mg-26 mg Tablet] Metoprolol Tartrate [Lopressor] 50 mg PO BID 05/07/24 06/11/24 History amLODIPine [Norvasc] 5 mg PO AC-SUPPER 05/07/24 06/11/24 History traZODone HCL [Desyrel] 50 mg PO HS PRN 05/07/24 06/11/24 History Allergies Allergy/AdvReac Type Severity Reaction Status Date / Time No Known Allergies Allergy Verified 06/11/24 16:52 Physical Exam Vitals: Vital Signs Temp Pulse Pulse Resp BP BP Pulse Ox 06/12/24 04:00 68 18 188/119 97 06/12/24 02:00 66 19 06/12/24 00:00 98.1 F 66 19 158/118 97 06/11/24 20:00 97.6 F 15 180/128 97 06/11/24 18:43 72 18 168/112 91 L 06/11/24 18:21 70 18 147/96 91 L 06/11/24 18:09 79 18 136/83 91 L 06/11/24 17:49 71 16 153/97 93 L 06/11/24 17:33 68 20 162/103 06/11/24 17:15 66 20 148/120 91 L 06/11/24 17:13 101 H 20 220/137 06/11/24 15:43 93 20 201/132 94 L 06/11/24 15:08 97.9 F 102 H 20 220/150 98 Intake and Output 06/11/24 06/12/24 06/12/24 22:59 06:59 14:59 Intake Total 163.982 Output Total 350 Balance -186.018 Intake: IV 120 Dextrose 5%-0.45% NaCl 1, 120 000 ml @ 20 mls/hr IV . Q24H [facility] Rx#:[id number] Intake, IV Titration 43.982 Amount Heparin Sod,Pork in 0.45% 43.982 NaCl 25,000 unit In 0.45 % NaCl 1 250ml.bag @ 12 UNITS/KG/HR 6.532 mls/hr IV .Q24H [facility] Rx#: [id number] Output: Urine 350 Other: Voiding Method Indwelling Catheter Indwelling Catheter Weight 54.431 kg Results 06/12/24 07:13 06/12/24 07:13 Cardiac Enzymes 06/11/24 06/11/24 06/11/24 Range/Units 15:51 15:51 19:30 AST 227 H (14-36) U/L Troponin I 0.530 H* 0.543 H* (0.000-0.034) ng/mL 06/11/24 Range/Units 22:02 AST (14-36) U/L Troponin I 0.476 H* (0.000-0.034) ng/mL Coagulation 06/11/24 06/11/24 Range/Units 16:52 23:54 PT 14.4 H (10.0-12.5) sec APTT 23.3 30.1 H (22.0-30.0) sec CBC 06/11/24 06/12/24 Range/Units 16:52 07:13 WBC 9.7 11.5 H (3.8-10.6) k/uL RBC 3.16 L 3.17 L (3.80-5.40) m/uL Hgb 9.3 L 9.3 L (11.4-16.0) gm/dL Hct 30.1 L 30.7 L (34.0-46.0) % Plt Count 243 256 (150-450) k/uL Comprehensive Metabolic Panel 06/11/24 Range/Units 15:51 Sodium 139 (137-145) mmol/L Potassium 5.6 H (3.5-5.1) mmol/L Chloride 106 (98-107) mmol/L Carbon Dioxide 14 L (22-30) mmol/L BUN 60 H (7-17) mg/dL Creatinine 3.14 H (0.52-1.04) mg/dL Glucose 90 (74-99) mg/dL Calcium 9.9 (8.4-10.2) mg/dL AST 227 H (14-36) U/L ALT 152 H (4-34) U/L Alkaline Phosphatase 159 H (38-126) U/L Total Protein 7.9 (6.3-8.2) g/dL Albumin 4.5 (3.5-5.0) g/dL Current Medications Generic Name Dose Route Start Last Admin Trade Name Freq PRN Reason Stop Dose Admin Acetaminophen 650 mg 06/11/24 17:59 Acetaminophen Tab 325 Mg Tab PO Q6HR PRN Mild Pain or Fever > 100.5 Hydrocodone Bitart/Acetaminophen 1 each 06/11/24 17:59 Hydrocodone/Apap 5-325mg 1 Each Tab PO Q4HR PRN Moderate Pain (Scale 4 to 6) Amlodipine Besylate 5 mg 06/12/24 17:30 Amlodipine 5 Mg Tab PO AC-SUPPER CHRISTY Furosemide 40 mg 06/12/24 06:00 06/12/24 06:17 Furosemide 10 Mg/Ml 4 Ml Vial IV 40 mg Q12H CHRISTY Administration Heparin Sodium (Porcine) 0 unit 06/11/24 17:57 06/12/24 01:24 Heparin Sodium 1,000 Un/Ml (10ml Vl) IV 2,700 unit PER PROTOCOL PRN Administration Low PTT Protocol Heparin Sodium/Sodium Chloride 250 mls @ 6.532 mls/hr 06/11/24 18:00 06/12/24 01:24 25,000 unit/ Sodium Chloride IV 17.51 units/kg/hr .Q24H CHRISTY 9.532 mls/hr Titration Protocol 12 UNITS/KG/HR Ceftriaxone Sodium 1 gm/ 50 mls @ 100 mls/hr 06/12/24 09:00 Sodium Chloride IVPB Q24HR CHRISTY Protocol Sodium Chloride 1,000 mls @ 75 mls/hr 06/12/24 06:15 06/12/24 06:18 Saline 0.9% IV 75 mls/hr .[id number] CHRISTY Administration Lorazepam 2 mg 06/11/24 17:55 Lorazepam 1 Mg Tab PO Q3HR PRN Ciwa 8 To 9 Lorazepam 2 mg 06/11/24 17:55 Lorazepam 1 Mg Tab PO Q2HR PRN Ciwa 10 or greater Lorazepam 1 mg 06/11/24 17:55 06/12/24 04:46 Lorazepam 1 Mg Tab PO 1 mg Q4HR PRN Administration Ciwa 6 To 7 Lorazepam 0.5 mg 06/11/24 17:55 Lorazepam 0.5 Mg Tab PO Q4HR PRN Ciwa 4 To 5 Lorazepam 2 mg 06/11/24 17:55 Lorazepam 2 Mg/Ml Inj IV 06/13/24 17:55 Q10M PRN CIWA 16 or higher Lorazepam 1 mg 06/11/24 17:55 Lorazepam 2 Mg/Ml Inj IV Q2HR PRN CIWA 8 or 9 Lorazepam 1 mg 06/11/24 17:55 Lorazepam 2 Mg/Ml Inj IV Q1HR PRN CIWA 10 to 15 Metoprolol Tartrate 50 mg 06/11/24 21:00 06/11/24 22:08 Metoprolol Tartrate 50 Mg Tab PO 50 mg BID CHRISTY Administration Morphine Sulfate 4 mg 06/11/24 17:59 06/11/24 22:55 Morphine Sulfate 4 Mg/Ml Syringe IV 4 mg Q4HR PRN Administration Severe Pain (Scale 7 to 10) Naloxone HCl 0.2 mg 06/11/24 17:59 Naloxone 0.4 Mg/Ml 1 Ml Vial IV Q2M PRN Opioid Reversal Ondansetron HCl 4 mg 06/11/24 17:59 Ondansetron 4 Mg/2 Ml Vial IVP Q8HR PRN Nausea And Vomiting Pantoprazole Sodium 40 mg 06/12/24 09:00 Pantoprazole 40 Mg/10 Ml Vial IV DAILY [facility] Trazodone HCl 50 mg 06/11/24 18:05 Trazodone Hcl 50 Mg Tab PO HS PRN Insomnia Intake and Output 06/11/24 06/12/24 06/12/24 22:59 06:59 14:59 Intake Total 163.982 Output Total 350 Balance -186.018 Intake: IV 120 Dextrose 5%-0.45% NaCl 1, 120 000 ml @ 20 mls/hr IV . Q24H [facility] Rx#:[id number] Intake, IV Titration 43.982 Amount Heparin Sod,Pork in 0.45% 43.982 NaCl 25,000 unit In 0.45 % NaCl 1 250ml.bag @ 12 UNITS/KG/HR 6.532 mls/hr IV .Q24H [facility] Rx#: [id number] Output: Urine 350 Other: Voiding Method Indwelling Catheter Indwelling Catheter Weight 54.431 kg 06/12/24 07:13 06/11/24 15:51
[2024-06-12] MEDS: IPRATROPIUM-ALBUTEROL 3 ML NEB INHALATION STA (11:48)
[2024-06-12 13:04] LABS: Amphetamine Screen,Urine Detected (NotDetected); Barbiturate Screen,Urine Not Detected (NotDetected); Benzodiazepines Screen,Urine Not Detected (NotDetected); Cocaine Screen,Urine Not Detected (NotDetected); Methadone Screen, Urine Not Detected (NotDetected); Opiate Screen,Urine Detected (NotDetected); Oxycodone Screen, Urine Not Detected (NotDetected); Phencyclidine Screen,Urine Not Detected (NotDetected); Tricyclic Antidepressant,Urine Not Detected (NotDetected); Urn Cannabinoid Scrn Detected (NotDetected)
[2024-06-12 14:42] VITALS: BMI 18.8
[2024-06-12] MEDS ORDERED: amLODIPine 5 MG TAB PO SCH (17:30)
[2024-06-12] MEDS ORDERED: FAMOTIDINE 20 MG/2 ML VIAL IV SCH (21:00)
[2024-06-12] MEDS ORDERED: HEPARIN SODIUM,PORCINE 5,000 UNIT/ML 1 ML VIAL SQ SCH (21:00)
[2024-06-12] MEDS: HEPARIN SODIUM,PORCINE 5,000 UNIT/ML 1 ML VIAL SQ SCH (21:10)
[2024-06-12] MEDS: FAMOTIDINE 20 MG/2 ML VIAL IV SCH (21:10)
[2024-06-12] MEDS: HYDROcodone/APAP 5-325MG 1 EACH TAB PO PRN (23:23)
[2024-06-13 07:36] LABS: Anisocytosis Slight; Basophils # (A) 0.1 k/uL (0-0.2); Basophils % (A) 1 %; Eosinophils # (A) 0.1 k/uL (0-0.7); Eosinophils % (A) 1 %; HCT 29.4 % (34.0-46.0); HGB 9.2 gm/dL (11.4-16.0); Hypochromasia Marked; Lymphocytes # (A) 1.1 k/uL (1.0-4.8); Lymphocytes % (A) 10 %; MCH 29.7 pg (25.0-35.0); MCHC 31.2 g/dL (31.0-37.0); MCV 95.1 fL (80.0-100.0); Macrocytosis Slight; Monocytes # (A) 0.7 k/uL (0-1.0); Monocytes % (A) 7 %; Neutrophils # (A) 7.9 k/uL (1.3-7.7); Neutrophils % (A) 78 %; Platelet Count 275 k/uL (150-450); RBC 3.09 m/uL (3.80-5.40); RDW 19.3 % (11.5-15.5); WBC 10.2 k/uL (3.8-10.6)
[2024-06-13 07:54] LABS: African American GFR (CKD) 15 (>60 ml/min/1.73 sqM); Anion Gap 12 mmol/L; Blood Urea Nitrogen 78 mg/dL (7-17); Calcium 8.8 mg/dL (8.4-10.2); Carbon Dioxide 21 mmol/L (22-30); Chloride 101 mmol/L (98-107); Glucose 103 mg/dL (74-99); Magnesium 2.5 mg/dL (1.6-2.3); Non-African American GFR(CKD) 13 (>60 ml/min/1.73 sqM); Potassium 4.3 mmol/L (3.5-5.1); Sodium 134 mmol/L (137-145)
[2024-06-13] MEDS: MORPHINE SULFATE 2 MG/ML SYRINGE IV PRN (10:37)
--- NOTE | 2024-06-13 10:57 | P.PN ---
Subjective Patient is seen in follow-up for acute kidney injury on chronic kidney disease. Renal function little worse. Transition from IV to oral Lasix this morning. Admits to good urine output. Vital signs are stable. General: No acute distress. HEENT: Head exam is unremarkable. On nasal cannula. LUNGS: No audible rhonchi or wheezes. HEART: Rate and Rhythm are regular. ABDOMEN: Nontender. EXTREMITITES: No edema. Objective - Vital Signs Vital signs: Vital Signs Temp 97.4 F L 06/13/24 08:43 Pulse 57 L 06/13/24 09:18 Resp 18 06/13/24 09:18 BP 153/84 06/13/24 08:43 Pulse Ox 99 06/13/24 08:43 FiO2 Intake & Output 06/12/24 06/13/24 06/13/24 18:59 06:59 18:59 Intake Total 480 240 Output Total 625 Balance -145 240 Weight 54.431 kg 63.5 kg Intake: Oral 480 240 Output: Urine 625 Other: Voiding Method Indwelling Catheter Indwelling Catheter - Labs CBC & Chem 7: 06/13/24 06:57 06/13/24 06:57 Labs: Abnormal Lab Results - Last 24 Hours (Table) 06/12/24 06/13/24 06/13/24 Range/Units 10:40 06:57 06:57 RBC 3.09 L (3.80-5.40) m/uL Hgb 9.2 L (11.4-16.0) gm/dL Hct 29.4 L (34.0-46.0) % RDW 19.3 H (11.5-15.5) % Neutrophils # 7.9 H (1.3-7.7) k/uL Sodium 134 L (137-145) mmol/L Carbon Dioxide 21 L (22-30) mmol/L BUN 78 H (7-17) mg/dL Creatinine 3.58 H (0.52-1.04) mg/dL Glucose 103 H (74-99) mg/dL Magnesium 2.5 H (1.6-2.3) mg/dL Urine Opiates Screen Detected H (NotDetected) Ur Amphetamines Screen Detected H (NotDetected) U Marijuana (THC) Screen Detected H (NotDetected) Microbiology - Last 24 Hours (Table) 06/11/24 17:00 Blood Culture - Preliminary Blood Assessment and Plan Plan: Assessment: 1. Acute kidney injury secondary to ATN secondary to cardiorenal syndrome. Creatinine s 3.5 and today. UA with 1+ protein. No hydronephrosis noted on kidney ultrasound. Kidneys noted to be atrophic. 2. Chronic kidney disease stage IIIb with baseline creatinine 1.8-1.9 from April 2024. Etiology is nephrosclerosis. 3. Acute hypoxic respiratory failure. 4. Volume overload. Improved with diuresis. 5. Hypertension with chronic kidney disease. Stable. 6. Hyperkalemia secondary to acute kidney injury, Entresto and acidosis. Imp roved. 7. Metabolic acidosis secondary to acute kidney injury. Improved. On oral bicarb. 8. Acute systolic CHF ejection fraction of 20 to 25% with moderate pulmonary hypertension, mild mitral regurgitation, moderate tricuspid regurgitation and moderate pericardial effusion also noted. 9. Tobacco abuse. 10. Anemia of chronic kidney disease. Work on deficiency. Plan: Switched from IV to oral Lasix this morning. Add SGLT2 inhibitor. Check iron studies. Avoid nephrotoxins. Continue to monitor renal function and urine output. Tobacco cessation strongly advised. Advised patient to maintain low-salt diet and fluid restriction of less than 50 ounces per day upon discharge. Repeat BMP and magnesium level 2 to 3 days postdischarge. Follow-up outpatient in 1 week.
[2024-06-13] MEDS: DAPAGLIFLOZIN PROPANEDIOL 5 MG TABLET PO SCH (11:46)
--- NOTE | 2024-06-13 13:27 | P.PN ---
Subjective Progress Note Date: 06/13/24 Reason for Consult (text): NSTEMI History of present illness: This is a 64-year-old female patient previously seen by Dr. Villar in September 2020 with past medical history of coronary artery disease, nonischemic cardiomyopathy, hypertension, dyslipidemia, tobacco use. We have been asked to evaluate the patient for NSTEMI. Patient states that she came into the hospital because she was feeling very weak which was progressively worsening. She has had decreased appetite and weight loss. Patient complains of shortness of breath is progressively worsening. She denies having chest pain and no shortness of breath. She presented with a blood pressure of 220/150. She is status post 2 L of IV fluid, sodium bicarb drip, Nitropaste, labetalol 20 mg IV push x 1, Toradol IV Lasix 40 mg x 1 and Lokelma. Her blood pressure is now 176/112, heart rate 73, pulse ox 98% on room air. Patient is seen today in the emergency center waiting for a bed on the cardiac stepdown unit. Patient has been started on heparin drip for PE protocol. Patient is also on the CIWA protocol. -EKG: Sinus rhythm 102 bpm -Chest x-ray: Cardiomegaly, pulmonary vascular congestion and bilateral pleural effusions. -Sound duplex of the bilateral lower extremities negative for DVT. -Renal ultrasound reveals no hydronephrosis. Increased cortical echogenicity mostly the right kidney can be seen in the setting of nonspecific medical renal disease. Right upper quadrant ascites. -Echocardiogram reveals EF of 20 to 25%. Biatrial enlargement, prominent right ventricle. Moderate pulmonary hypertension, mild mitral digitation, moderate tricuspid regurgitation, moderate pericardial effusion not compromising the filling of chambers. -Laboratory studies: WBC 11.5, hemoglobin 9.3. INR 1.5, D-dimer 4.93. Potassium initially 5.6 now 5.2. BUN 70 and creatinine 3.31. Lactic acid 2.4 and repeat 2. Troponins 0.53, 0.54, 0.47. proBNP 174,000. Cepheid viral panel negative. 06/13 Patient seen and examined. Patient denies having chest pain no shortness of breath. She states her appetite is getting better. Patient has been maintained on IV Lasix 40 mg every 12 hours as well as increased amlodipine and added hydralazine for blood pressure control. Blood pressure is now 137/65, heart rate 63, pulse ox 99% on room air. Repeat blood work reveals hemoglobin 9.2. Sodium 134, potassium 4.3, BUN 78 and creatinine 3.58. Patient is followed by nephrology and added SGLT2 inhibitor, iron studies, low-salt diet, fluid restriction. Physical examination: Gen: This is a thin cachectic 64-year-old female appears to be in no acute respiratory distress. VS: reviewed HEENT: Head is atraumatic, normocephalic. Pupils equal, round. Sclerae is anicteric. NECK: Supple. No JVD. LUNGS: Clear to auscultation. No wheezes or rhonchi. No intercostal retractions. HEART: Regular rate and rhythm. No murmur. ABDOMEN: Soft No tenderness. EXTREMITIES: Trace bilateral lower extremity edema. No calf tenderness. NEUROLOGICAL: Patient is awake, alert. Assessment: Acute kidney injury Hyperkalemia Metabolic acidosis secondary to ESPERANZA Elevated troponin but flat with nonischemic pattern Hypertensive urgency/emergency History of coronary artery disease Nonischemic cardiomyopathy with current EF of 20 to 25% Moderate pulmonary hypertension Moderate pericardial effusion Valvular heart disease with mild mitral regurgitation and moderate tricuspid regurgitation Hypertension Dyslipidemia Chronic anemia Chronic kidney disease stage IIIb Tobacco use and dependence Anemia Plan: Continue patient's home cardiac medications with the following changes Increased amlodipine to 5 mg twice daily Addition of hydralazine 75 mg 3 times daily Discontinue IV Lasix and start oral 40 mg daily tomorrow Increase activity Further recommendations to follow based upon clinical course Nurse practitioner note has been reviewed, I agree with documented findings and plan of care. Patient was seen and examined. Objective - Vital Signs Vital signs: Vital Signs Temp 97.4 F L 06/13/24 08:43 Pulse 57 L 06/13/24 08:43 Resp 18 06/13/24 08:43 BP 153/84 06/13/24 08:43 Pulse Ox 99 06/13/24 08:43 FiO2 Intake & Output 06/12/24 06/13/24 06/13/24 18:59 06:59 18:59 Intake Total 480 240 Output Total 625 Balance -145 240 Weight 54.431 kg 63.5 kg Intake: Oral 480 240 Output: Urine 625 Other: Voiding Method Indwelling Catheter - Labs CBC & Chem 7: 06/13/24 06:57 06/13/24 06:57 Labs: Abnormal Lab Results - Last 24 Hours (Table) 06/12/24 06/13/24 06/13/24 Range/Units 10:40 06:57 06:57 RBC 3.09 L (3.80-5.40) m/uL Hgb 9.2 L (11.4-16.0) gm/dL Hct 29.4 L (34.0-46.0) % RDW 19.3 H (11.5-15.5) % Neutrophils # 7.9 H (1.3-7.7) k/uL Sodium 134 L (137-145) mmol/L Carbon Dioxide 21 L (22-30) mmol/L BUN 78 H (7-17) mg/dL Creatinine 3.58 H (0.52-1.04) mg/dL Glucose 103 H (74-99) mg/dL Magnesium 2.5 H (1.6-2.3) mg/dL Urine Opiates Screen Detected H (NotDetected) Ur Amphetamines Screen Detected H (NotDetected) U Marijuana (THC) Screen Detected H (NotDetected) Microbiology - Last 24 Hours (Table) 06/11/24 17:00 Blood Culture - Preliminary Blood
[2024-06-13 16:33] VITALS: RESP 16
[2024-06-13 16:57] LABS: % Iron Saturation 2.7 (12.00-45.00); Ferritin 39.8 ng/mL (10.0-291.0)
--- NOTE | 2024-06-13 19:38 | P.PN ---
Subjective Progress Note Date: 06/13/24 This is a pleasant 64 years old female with past medical history of multiple medical problems including bipolar disorder, with psychotic features, chronic kidney disease. Previous history of alcohol use disorder but not recently. She lives with her in their place and [place]. Patient was starting feeling weakness for about a week. Associated with low appetite for the last 3 to 4 days. So she decided to come to the hospital Patient is heavy smoker smokes 1.5 pack/day, we counseled her to quit smoking with risks explained, she was not sure but she agrees to the nicotine patch. She denies current alcohol or illicit drugs. Patient states her last alcohol drink was before [facility] which is more than a month ago. She denies chest pain or coughing but but she has been complaining from shor tness of breath for the last 3 to 4 days No specific GI or symptoms other than some nausea She denies falling. No headache dizziness weakness or numbness Her daughter about 8 months ago, she still misses her but she denies depression. And she confirms to me strongly denied any suicidal or homicidal ideation She is complaining from right shoulder pain Hemodynamically stable and patient is afebrile. Blood pressure is elevated on admission 180/128 and 188/119 Labs reviewed, WBC slightly up at 11.5, hemoglobin stable 9.3. LFTs unremarkable Creatinine slightly above baseline at 3.1 with baseline 1.8-2.2. Ammonia is negative. Lactic acid was elevated 2.7, 7.9 and 2.0 which is within the reference range Troponin is elevated 0.5, 0.5 and 0.47 proBNP is elevated [id number] Alcohol less than 10 Renal ultrasound showing no hydronephrosis with right upper quadrant ascites and decrease cortical echogenicity in the right kidney which is nonspecific kidney disease Chest x-ray showing cardiomegaly with bilateral pleural effusion and pulmonary vascular congestion D-dimer was elevated 4.9, ultrasound of the leg is negative for DVT. Perfusion test of the lung showing solitary triple matched defect right mid lung to qualify as very low probability for pulmonary embolus. Correlate for underlying airspace disease. also No suspicious mismatch perfusion defect is seen. Cardiomegaly No recent echocardiogram, last echo was from 08/2020 showing ejection fraction 30 to 35% Patient was started on heparin drip in the emergency room, received 2 L of fluid and CIWA protocol. Also patient started on ceftriaxone 06/13/2024 Patient is evaluated today in follow up on the medical floor. Patient reports feeling less short of breath. Repeat echocardiogram reveals an EF of 20-25% with moderate pericardial effusions. She has been transitioned to oral lasix. Indwelling catheter remains in place. Patient has been continued on nasal cannula 4L with oxygen saturations of 99%. Sodium 134, BUN 78, creatinine 3.58. REVIEW OF SYSTEMS: CONSTITUTIONAL: No fever, no malaise, no fatigue. HEENT: No recent visual problems or hearing problems. Denied any sore throat. CARDIOVASCULAR: No chest pain, orthopnea, PND, no palpitations, no syncope. PULMONARY: No shortness of breath, no cough, no hemoptysis. GASTROINTESTINAL: No diarrhea, no nausea, no vomiting, no abdominal pain. NEUROLOGICAL: No headaches, no weakness, no numbness. PHYSICAL EXAMINATION: GENERAL: The patient is alert and oriented x3, not in any acute distress. Well developed, well nourished. HEENT: Pupils are round and equally reacting to light. EOMI. No scleral icterus. No conjunctival pallor. Normocephalic, atraumatic. No pharyngeal erythema. No thyromegaly. CARDIOVASCULAR: S1 and S2 present. No murmurs, rubs, or gallops. PULMONARY: Chest is clear to auscultation, no wheezing or crackles. ABDOMEN: Soft, nontender, nondistended, normoactive bowel sounds. No palpable organomegaly. MUSCULOSKELETAL: No joint swelling or deformity. EXTREMITIES: No cyanosis, clubbing, or pedal edema. NEUROLOGICAL: Gross neurological examination did not reveal any focal deficits. SKIN: No rashes. Assessment and Plan Acute CHF, with low echocardiogram with ejection fraction 30-35 % from echo on 2020 Moderate pericardial effusion Nonischemic cardiomyopathy Hypertensive with urgency on admission Acute kidney injury on CKD stage III most likely cardiorenal syndrome Troponin leak likely from renal dysfunction Metabolic acidosis secondary to ESPERANZA. Calorie protein malnutrition, moderate Mild hypoxic respiratory failure History of bipolar depression with psychotic feature, currently not an active issue Bereavement for DrAlden Madden more than 6 months ago. Currently stable Previous history of alcohol use disorder, currently she is more sober Chronic anemia Tobacco dependence GI prophylaxis Full Code Plan Continue IV lasix and fluid restriction Patient started on Farxiga Continue ativan CIWA protocol. Continue oral sodium bicarbonate tablets Monitor renal function and electrolytes Continue indwelling catheter and can do voiding trial tomorrow The impression and plan of care has been dictated by Shey Amaya, Nurse Practitioner as directed. Dr. Rodrigo MD I have performed a history and physical examination and medical decision making of this patient, discussed the same with the dictator, and agree with the dictators assessment and plan as written, documented as a scribe. Based on total visit time, I have performed more than 50% of this visit. Objective - Vital Signs Vital signs: Vital Signs Temp 97.4 F L 06/13/24 11:23 Pulse 63 06/13/24 11:23 Resp 18 06/13/24 11:23 BP 137/65 06/13/24 11:23 Pulse Ox 99 06/13/24 11:23 FiO2 Intake & Output 06/12/24 06/13/24 06/13/24 18:59 06:59 18:59 Intake Total 480 579 Output Total 625 Balance -145 579 Weight 54.431 kg 63.5 kg Intake: Oral 480 579 Output: Urine 625 Other: Voiding Method Indwelling Catheter Indwelling Catheter - Labs CBC & Chem 7: 06/13/24 06:57 06/13/24 06:57 Labs: Abnormal Lab Results - Last 24 Hours (Table) 06/13/24 06/13/24 Range/Units 06:57 06:57 RBC 3.09 L (3.80-5.40) m/uL Hgb 9.2 L (11.4-16.0) gm/dL Hct 29.4 L (34.0-46.0) % RDW 19.3 H (11.5-15.5) % Neutrophils # 7.9 H (1.3-7.7) k/uL Sodium 134 L (137-145) mmol/L Carbon Dioxide 21 L (22-30) mmol/L BUN 78 H (7-17) mg/dL Creatinine 3.58 H (0.52-1.04) mg/dL Glucose 103 H (74-99) mg/dL Magnesium 2.5 H (1.6-2.3) mg/dL Microbiology - Last 24 Hours (Table) 06/11/24 17:00 Blood Culture - Preliminary Blood Assessment and Plan Time with Patient: Less than 30
[2024-06-14 08:00] LABS: African American GFR (CKD) 15 (>60 ml/min/1.73 sqM); Anion Gap 14 mmol/L; Blood Urea Nitrogen 73 mg/dL (7-17); Calcium 8.9 mg/dL (8.4-10.2); Carbon Dioxide 20 mmol/L (22-30); Chloride 101 mmol/L (98-107); Glucose 83 mg/dL (74-99); Magnesium 2.3 mg/dL (1.6-2.3); Non-African American GFR(CKD) 13 (>60 ml/min/1.73 sqM); Potassium 3.8 mmol/L (3.5-5.1); Sodium 135 mmol/L (137-145)
[2024-06-14 08:25] LABS: Anisocytosis Slight; Basophils # (A) 0.1 k/uL (0-0.2); Basophils % (A) 1 %; Eosinophils # (A) 0.3 k/uL (0-0.7); Eosinophils % (A) 4 %; HGB 9.2 gm/dL (11.4-16.0); Hypochromasia Slight; Lymphocytes # (A) 1.3 k/uL (1.0-4.8); Lymphocytes % (A) 16 %; MCH 29.5 pg (25.0-35.0); MCHC 31.6 g/dL (31.0-37.0); MCV 93.2 fL (80.0-100.0); Macrocytosis Slight; Mean Platelet Volume 9.6; Monocytes # (A) 0.9 k/uL (0-1.0); Monocytes % (A) 11 %; Neutrophils # (A) 5.3 k/uL (1.3-7.7); Neutrophils % (A) 65 %; Platelet Count 252 k/uL (150-450); Poikilocytosis Slight; RBC 3.11 m/uL (3.80-5.40); RDW 19.5 % (11.5-15.5); WBC 8.2 k/uL (3.8-10.6)
[2024-06-14] MEDS: FUROSEMIDE 40 MG TAB PO SCH (08:32)
--- NOTE | 2024-06-14 10:12 | P.PN ---
Subjective Patient is seen in follow-up for acute kidney injury on chronic kidney disease. Renal function stable. On oral Lasix. On room air. Denies chest pain or shortness of breath. Vital signs are stable. General: No acute distress. HEENT: Head exam is unremarkable. On room air. LUNGS: No audible rhonchi or wheezes. HEART: Rate and Rhythm are regular. ABDOMEN: Nontender. EXTREMITITES: No edema. Objective - Vital Signs Vital signs: Vital Signs Temp 97.4 F L 06/14/24 03:34 Pulse 63 06/14/24 08:29 Resp 16 06/14/24 08:29 BP 159/71 06/14/24 08:29 Pulse Ox 94 L 06/14/24 08:29 FiO2 Intake & Output 06/13/24 06/14/24 06/14/24 18:59 06:59 18:59 Intake Total 1059 320 240 Output Total 725 900 Balance 334 -580 240 Weight 66 kg Intake: IV 20 Invasive Line 2 20 Oral 1059 300 240 Output: Urine 725 900 Other: Voiding Method Indwelling Catheter Indwelling Catheter - Labs CBC & Chem 7: 06/14/24 05:38 06/14/24 05:38 Labs: Abnormal Lab Results - Last 24 Hours (Table) 06/13/24 06/14/24 06/14/24 Range/Units 06:57 05:38 05:38 RBC 3.11 L (3.80-5.40) m/uL Hgb 9.2 L (11.4-16.0) gm/dL Hct 29.0 L (34.0-46.0) % RDW 19.5 H (11.5-15.5) % Sodium 135 L (137-145) mmol/L Carbon Dioxide 20 L (22-30) mmol/L BUN 73 H (7-17) mg/dL Creatinine 3.49 H (0.52-1.04) mg/dL Iron 9 L (50-170) UG/DL % Saturation 2.70 L (12.00-45.00) Microbiology - Last 24 Hours (Table) 06/11/24 17:00 Blood Culture - Preliminary Blood Assessment and Plan Plan: Assessment: 1. Acute kidney injury secondary to ATN secondary to cardiorenal syndrome. Creatinine stable at 3.49 today. UA with 1+ protein. No hydronephrosis noted on kidney ultrasound. Kidneys noted to be atrophic. 2. Chronic kidney disease stage IIIb with baseline creatinine 1.8-1.9 from April 2024. Etiology is nephrosclerosis. 3. Acute hypoxic respiratory failure. Now on room air. 4. Volume overload. Improved with diuresis. 5. Hypertension with chronic kidney disease. Stable. 6. Hyperkalemia secondary to acute kidney injury, Entresto and acidosis. Improved. 7. Metabolic acidosis secondary to acute kidney injury. Improved. On oral bicarb. 8. Acute systolic CHF ejection fraction of 20 to 25% with moderate pulmonary hypertension, mild mitral regurgitation, moderate tricuspid regurgitation and moderate pericardial effusion also noted. 9. Tobacco abuse. 10. Anemia of chronic kidney disease. Iron deficiency noted. Plan: Maintain oral Lasix. Maintain maintain oral Lasix. SGLT2 inhibitor. Add IV iron. Avoid nephrotoxins. Continue to monitor renal function and urine output. Tobacco cessation strongly advised. Advised patient to maintain low-salt diet and fluid restriction of less than 50 ounces per day upon discharge. Repeat BMP and magnesium level 2 to 3 days postdischarge. Follow-up outpatient in 1 week.
[2024-06-14] MEDS: SODIUM FERRIC GLUCONAT-SUCROSE 125 MG in SODIUM CHLORIDE 0.9% 100 ML IVPB SCH (11:12)
--- NOTE | 2024-06-14 14:02 | P.PN ---
Subjective Progress Note Date: 06/14/24 Reason for Consult (text): NSTEMI History of present illness: This is a 64-year-old female patient previously seen by Dr. Villar in September 2020 with past medical history of coronary artery disease, nonischemic cardiomyopathy, hypertension, dyslipidemia, tobacco use. We have been asked to evaluate the patient for NSTEMI. Patient states that she came into the hospital because she was feeling very weak which was progressively worsening. She has had decreased appetite and weight loss. Patient complains of shortness of breath is progressively worsening. She denies having chest pain and no shortness of breath. She presented with a blood pressure of 220/150. She is status post 2 L of IV fluid, sodium bicarb drip, Nitropaste, labetalol 20 mg IV push x 1, Toradol IV Lasix 40 mg x 1 and Lokelma. Her blood pressure is now 176/112, heart rate 73, pulse ox 98% on room air. Patient is seen today in the emergency center waiting for a bed on the cardiac stepdown unit. Patient has been started on heparin drip for PE protocol. Patient is also on the CIWA protocol. -EKG: Sinus rhythm 102 bpm -Chest x-ray: Cardiomegaly, pulmonary vascular congestion and bilateral pleural effusions. -Sound duplex of the bilateral lower extremities negative for DVT. -Renal ultrasound reveals no hydronephrosis. Increased cortical echogenicity mostly the right kidney can be seen in the setting of nonspecific medical renal disease. Right upper quadrant ascites. -Echocardiogram reveals EF of 20 to 25%. Biatrial enlargement, prominent right ventricle. Moderate pulmonary hypertension, mild mitral digitation, moderate tricuspid regurgitation, moderate pericardial effusion not compromising the filling of chambers. -Laboratory studies: WBC 11.5, hemoglobin 9.3. INR 1.5, D-dimer 4.93. Potassium initially 5.6 now 5.2. BUN 70 and creatinine 3.31. Lactic acid 2.4 and repeat 2. Troponins 0.53, 0.54, 0.47. proBNP 174,000. Cepheid viral panel negative. 06/13 Patient seen and examined. Patient denies having chest pain no shortness of breath. She states her appetite is getting better. Patient has been maintained on IV Lasix 40 mg every 12 hours as well as increased amlodipine and added hydralazine for blood pressure control. Blood pressure is now 137/65, heart rate 63, pulse ox 99% on room air. Repeat blood work reveals hemoglobin 9.2. Sodium 134, potassium 4.3, BUN 78 and creatinine 3.58. Patient is followed by nephrology and added SGLT2 inhibitor, iron studies, low-salt diet, fluid restriction. 06/14 Patient seen and examined. Patient states that she is feeling well. No new complaints. No chest pain. Blood pressure 159/71, heart rate 63, pulse ox 94% on room air. Repeat blood work reveals hemoglobin 9.2. BUN 73 creatinine 3.59, sodium 135 and potassium 3.5, CO2 20. Yesterday, we increased amlodipine to 5 mg twice daily, added hydralazine 75 mg 3 times daily and discontinued IV Lasix with plan to start oral this morning of 40 mg daily. EF came back low and we will plan to discontinue amlodipine. Physical examination: Gen: This is a thin cachectic 64-year-old female appears to be in no acute respiratory distress. VS: reviewed HEENT: Head is atraumatic, normocephalic. Pupils equal, round. Sclerae is anicteric. NECK: Supple. No JVD. LUNGS: Clear to auscultation. No wheezes or rhonchi. No intercostal retractions. HEART: Regular rate and rhythm. No murmur. ABDOMEN: Soft No tenderness. EXTREMITIES: Trace bilateral lower extremity edema. No calf tenderness. NEUROLOGICAL: Patient is awake, alert. Assessment: Acute kidney injury Hyperkalemia Metabolic acidosis secondary to ESPERANZA Elevated troponin but flat with nonischemic pattern Hypertensive urgency/emergency History of coronary artery disease Nonischemic cardiomyopathy with current EF of 20 to 25% Moderate pulmonary hypertension Moderate pericardial effusion Valvular heart disease with mild mitral regurgitation and moderate tricuspid regurgitation Hypertension Dyslipidemia Chronic anemia Chronic kidney disease stage IIIb Tobacco use and dependence Anemia Plan: Continue patient's home cardiac medications with the following changes Discontinue amlodipine due to cardiomyopathy Continue hydralazine 75 mg 3 times daily Continue Lasix oral 40 mg daily Discontinue metoprolol and start patient on Coreg 6.25 mg twice daily for better blood pressure control Monitor overnight and plan for probable discharge home tomorrow Nurse practitioner note has been reviewed, I agree with documented findings and plan of care. Patient was seen and examined. Objective - Vital Signs Vital signs: Vital Signs Temp 97.4 F L 06/14/24 03:34 Pulse 63 06/14/24 08:29 Resp 16 06/14/24 08:29 BP 159/71 06/14/24 08:29 Pulse Ox 94 L 06/14/24 08:29 FiO2 Intake & Output 06/13/24 06/14/24 06/14/24 18:59 06:59 18:59 Intake Total 1059 320 240 Output Total 725 900 Balance 334 -580 240 Weight 66 kg Intake: IV 20 Invasive Line 2 20 Oral 1059 300 240 Output: Urine 725 900 Other: Voiding Method Indwelling Catheter Indwelling Catheter - Labs CBC & Chem 7: 06/14/24 05:38 06/14/24 05:38 Labs: Abnormal Lab Results - Last 24 Hours (Table) 06/13/24 06/14/24 06/14/24 Range/Units 06:57 05:38 05:38 RBC 3.11 L (3.80-5.40) m/uL Hgb 9.2 L (11.4-16.0) gm/dL Hct 29.0 L (34.0-46.0) % RDW 19.5 H (11.5-15.5) % Sodium 135 L (137-145) mmol/L Carbon Dioxide 20 L (22-30) mmol/L BUN 73 H (7-17) mg/dL Creatinine 3.49 H (0.52-1.04) mg/dL Iron 9 L (50-170) UG/DL % Saturation 2.70 L (12.00-45.00) Microbiology - Last 24 Hours (Table) 06/11/24 17:00 Blood Culture - Preliminary Blood
--- NOTE | 2024-06-14 16:44 | P.PN ---
Subjective Progress Note Date: 06/14/24 This is a pleasant 64 years old female with past medical history of multiple medical problems including bipolar disorder, with psychotic features, chronic kidney disease. Previous history of alcohol use disorder but not recently. She lives with her in their place and [place]. Patient was starting feeling weakness for about a week. Associated with low appetite for the last 3 to 4 days. So she decided to come to the hospital Patient is heavy smoker smokes 1.5 pack/day, we counseled her to quit smoking with risks explained, she was not sure but she agrees to the nicotine patch. She denies current alcohol or illicit drugs. Patient states her last alcohol drink was before [facility] which is more than a month ago. She denies chest pain or coughing but but she has been complaining from shor tness of breath for the last 3 to 4 days No specific GI or symptoms other than some nausea She denies falling. No headache dizziness weakness or numbness Her daughter about 8 months ago, she still misses her but she denies depression. And she confirms to me strongly denied any suicidal or homicidal ideation She is complaining from right shoulder pain Hemodynamically stable and patient is afebrile. Blood pressure is elevated on admission 180/128 and 188/119 Labs reviewed, WBC slightly up at 11.5, hemoglobin stable 9.3. LFTs unremarkable Creatinine slightly above baseline at 3.1 with baseline 1.8-2.2. Ammonia is negative. Lactic acid was elevated 2.7, 7.9 and 2.0 which is within the reference range Troponin is elevated 0.5, 0.5 and 0.47 proBNP is elevated [id number] Alcohol less than 10 Renal ultrasound showing no hydronephrosis with right upper quadrant ascites and decrease cortical echogenicity in the right kidney which is nonspecific kidney disease Chest x-ray showing cardiomegaly with bilateral pleural effusion and pulmonary vascular congestion D-dimer was elevated 4.9, ultrasound of the leg is negative for DVT. Perfusion test of the lung showing solitary triple matched defect right mid lung to qualify as very low probability for pulmonary embolus. Correlate for underlying airspace disease. also No suspicious mismatch perfusion defect is seen. Cardiomegaly No recent echocardiogram, last echo was from 08/2020 showing ejection fraction 30 to 35% Patient was started on heparin drip in the emergency room, received 2 L of fluid and CIWA protocol. Also patient started on ceftriaxone 06/13/2024 Patient is evaluated today in follow up on the medical floor. Patient reports feeling less short of breath. Repeat echocardiogram reveals an EF of 20-25% with moderate pericardial effusions. She has been transitioned to oral lasix. Indwelling catheter remains in place. Patient has been continued on nasal cannula 4L with oxygen saturations of 99%. Sodium 134, BUN 78, creatinine 3.58. 06/14/2024 Patient evaluated today in follow up resting in bed. She has been weaned to room air with oxygen saturations of 91% at rest. She continues to feel short of breath and felt better with the oxygen on. Patient continues on oral lasix daily. Patient continues on IV ferrlecit. BUN 73, creatinine 3.49 today. REVIEW OF SYSTEMS: CONSTITUTIONAL: No fever, no malaise, no fatigue. HEENT: No recent visual problems or hearing problems. Denied any sore throat. CARDIOVASCULAR: No chest pain, orthopnea, PND, no palpitations, no syncope. PULMONARY: No shortness of breath, no cough, no hemoptysis. GASTROINTESTINAL: No diarrhea, no nausea, no vomiting, no abdominal pain. NEUROLOGICAL: No headaches, no weakness, no numbness. PHYSICAL EXAMINATION: GENERAL: The patient is alert and oriented x3, not in any acute distress. Well developed, well nourished. HEENT: Pupils are round and equally reacting to light. EOMI. No scleral icterus. No conjunctival pallor. Normocephalic, atraumatic. No pharyngeal erythema. No thyromegaly. CARDIOVASCULAR: S1 and S2 present. No murmurs, rubs, or gallops. PULMONARY: Chest is clear to auscultation, no wheezing or crackles. ABDOMEN: Soft, nontender, nondistended, normoactive bowel sounds. No palpable organomegaly. MUSCULOSKELETAL: No joint swelling or deformity. EXTREMITIES: No cyanosis, clubbing, or pedal edema. NEUROLOGICAL: Gross neurological examination did not reveal any focal deficits. SKIN: No rashes. Assessment and Plan Acute CHF, with low echocardiogram EF 20%. Moderate pericardial effusion Nonischemic cardiomyopathy Hypertensive with urgency on admission Acute kidney injury on CKD stage III most likely cardiorenal syndrome Troponin leak likely from renal dysfunction Metabolic acidosis secondary to ESPERANZA. Calorie protein malnutrition, moderate Mild hypoxic respiratory failure History of bipolar depression with psychotic feature, currently not an active issue Bereavement for Dr. more than 6 months ago. Currently stable Previous history of alcohol use disorder, currently she is more sober Chronic anemia Tobacco dependence GI prophylaxis Full Code Plan Transitioned to oral lasix daily Patient started on Farxiga Continue ativan CIWA protocol. Continue oral sodium bicarbonate tablets Monitor renal function and electrolytes Discontinue tinajero catheter for a trial of void Cardiology adjusting medications metoprolol discontinued and patient has been started on carvedilol continue cardiac quality assurance monitor final overnight Complete home oxygen test Possible D/C home in the next 24 hours The impression and plan of care has been dictated by Shey Amaya, Nurse Practitioner as directed. Dr. Rodrigo MD I have performed a history and physical examination and medical decision making of this patient, discussed the same with the dictator, and agree with the dictators assessment and plan as written, documented as a scribe. Based on total visit time, I have performed more than 50% of this visit. Objective - Vital Signs Vital signs: Vital Signs Temp 97.4 F L 06/14/24 03:34 Pulse 67 06/14/24 15:28 Resp 16 06/14/24 15:28 BP 149/65 06/14/24 15:28 Pulse Ox 90 L 06/14/24 15:28 FiO2 Intake & Output 06/13/24 06/14/24 06/14/24 18:59 06:59 18:59 Intake Total 1059 320 240 Output Total 725 900 Balance 334 -580 240 Weight 66 kg Intake: IV 20 Invasive Line 2 20 Oral 1059 300 240 Output: Urine 725 900 Other: Voiding Method Indwelling Catheter Indwelling Catheter Indwelling Catheter - Labs CBC & Chem 7: 06/14/24 05:38 06/14/24 05:38 Labs: Abnormal Lab Results - Last 24 Hours (Table) 06/13/24 06/14/24 06/14/24 Range/Units 06:57 05:38 05:38 RBC 3.11 L (3.80-5.40) m/uL Hgb 9.2 L (11.4-16.0) gm/dL Hct 29.0 L (34.0-46.0) % RDW 19.5 H (11.5-15.5) % Sodium 135 L (137-145) mmol/L Carbon Dioxide 20 L (22-30) mmol/L BUN 73 H (7-17) mg/dL Creatinine 3.49 H (0.52-1.04) mg/dL Iron 9 L (50-170) UG/DL % Saturation 2.70 L (12.00-45.00) Microbiology - Last 24 Hours (Table) 06/11/24 17:00 Blood Culture - Preliminary Blood Assessment and Plan Time with Patient: Less than 30
[2024-06-14] MEDS: carvediloL 6.25 MG TAB PO SCH (18:29)
[2024-06-15] MEDS: ONDANSETRON 4 MG/2 ML VIAL IVP PRN (06:22)
[2024-06-15 06:59] LABS: African American GFR (CKD) 17 (>60 ml/min/1.73 sqM); Anion Gap 13 mmol/L; Blood Urea Nitrogen 66 mg/dL (7-17); Calcium 9.2 mg/dL (8.4-10.2); Carbon Dioxide 20 mmol/L (22-30); Chloride 102 mmol/L (98-107); Glucose 112 mg/dL (74-99); Magnesium 2.1 mg/dL (1.6-2.3); Non-African American GFR(CKD) 15 (>60 ml/min/1.73 sqM); Potassium 3.8 mmol/L (3.5-5.1); Sodium 135 mmol/L (137-145)
[2024-06-15] MEDS: IPRATROPIUM-ALBUTEROL 3 ML NEB INHALATION PRN (09:45)
--- NOTE | 2024-06-15 10:20 | P.PN ---
Subjective Patient is seen in follow-up for acute kidney injury on chronic kidney disease. Renal function better today. On oral Lasix. On room air. Denies chest pain or shortness of breath. Vital signs are stable. General: No acute distress. HEENT: Head exam is unremarkable. On room air. LUNGS: No audible rhonchi or wheezes. HEART: Rate and Rhythm are regular. ABDOMEN: Nontender. EXTREMITITES: No edema. Objective - Vital Signs Vital signs: Vital Signs Temp 97.5 F L 06/15/24 08:32 Pulse 80 06/15/24 09:54 Resp 16 06/15/24 08:32 BP 158/71 06/15/24 08:32 Pulse Ox 95 06/15/24 08:32 FiO2 Intake & Output 06/14/24 06/15/24 06/15/24 18:59 06:59 18:59 Intake Total 240 8 Balance 240 8 Weight 62.5 kg Intake: IV 8 Invasive Line 2 8 Oral 240 Other: Voiding Method Indwelling Catheter Bedside Commode Bedside Commode # Voids 1 2 - Labs CBC & Chem 7: 06/14/24 05:38 06/15/24 05:55 Labs: Abnormal Lab Results - Last 24 Hours (Table) 06/15/24 Range/Units 05:55 Sodium 135 L (137-145) mmol/L Carbon Dioxide 20 L (22-30) mmol/L BUN 66 H (7-17) mg/dL Creatinine 3.09 H (0.52-1.04) mg/dL Glucose 112 H (74-99) mg/dL Microbiology - Last 24 Hours (Table) 06/11/24 17:00 Blood Culture - Preliminary Blood Assessment and Plan Plan: Assessment: 1. Acute kidney injury secondary to ATN secondary to cardiorenal syndrome. Renal function better. Creatinine 3.09. UA with 1+ protein. No hydronephrosis noted on kidney ultrasound. Kidneys noted to be atrophic. 2. Chronic kidney disease stage IIIb with baseline creatinine 1.8-1.9 from April 2024. Etiology is nephrosclerosis. 3. Acute hypoxic respiratory failure. Now on room air. 4. Volume overload. Improved with diuresis. 5. Hypertension with chronic kidney disease. Stable. 6. Hyperkalemia secondary to acute kidney injury, Entresto and acidosis. Improved. 7. Metabolic acidosis secondary to acute kidney injury. Improved. On oral bicarb. 8. Acute systolic CHF ejection fraction of 20 to 25% with moderate pulmonary hypertension, mild mitral regurgitation, moderate tricuspid regurgitation and moderate pericardial effusion also noted. 9. Tobacco abuse. 10. Anemia of chronic kidney disease. Iron deficiency noted. Plan: Maintain oral Lasix. Maintain SGLT2 inhibitor. Maintain IV iron. Increased dose of hydralazine to 100 mg Avoid nephrotoxins. Continue to monitor renal function and urine output. Tobacco cessation strongly advised. Advised patient to maintain low-salt diet and fluid restriction of less than 50 ounces per day upon discharge. Repeat BMP and magnesium level 2 to 3 days postdischarge. Follow-up outpatient in 1 week.
[2024-06-15 10:36] VITALS: BP 151/83; PULSE 79; TEMP 98
--- NOTE | 2024-06-15 11:56 | P.PN ---
Subjective Progress Note Date: 06/15/24 Reason for Consult (text): NSTEMI History of present illness: This is a 64-year-old female patient previously seen by Dr. Villar in September 2020 with past medical history of coronary artery disease, nonischemic cardiomyopathy, hypertension, dyslipidemia, tobacco use. We have been asked to evaluate the patient for NSTEMI. Patient states that she came into the hospital because she was feeling very weak which was progressively worsening. She has had decreased appetite and weight loss. Patient complains of shortness of breath is progressively worsening. She denies having chest pain and no shortness of breath. She presented with a blood pressure of 220/150. She is status post 2 L of IV fluid, sodium bicarb drip, Nitropaste, labetalol 20 mg IV push x 1, Toradol IV Lasix 40 mg x 1 and Lokelma. Her blood pressure is now 176/112, heart rate 73, pulse ox 98% on room air. Patient is seen today in the emergency center waiting for a bed on the cardiac stepdown unit. Patient has been started on heparin drip for PE protocol. Patient is also on the CIWA protocol. -EKG: Sinus rhythm 102 bpm -Chest x-ray: Cardiomegaly, pulmonary vascular congestion and bilateral pleural effusions. -Sound duplex of the bilateral lower extremities negative for DVT. -Renal ultrasound reveals no hydronephrosis. Increased cortical echogenicity mostly the right kidney can be seen in the setting of nonspecific medical renal disease. Right upper quadrant ascites. -Echocardiogram reveals EF of 20 to 25%. Biatrial enlargement, prominent right ventricle. Moderate pulmonary hypertension, mild mitral digitation, moderate tricuspid regurgitation, moderate pericardial effusion not compromising the filling of chambers. -Laboratory studies: WBC 11.5, hemoglobin 9.3. INR 1.5, D-dimer 4.93. Potassium initially 5.6 now 5.2. BUN 70 and creatinine 3.31. Lactic acid 2.4 and repeat 2. Troponins 0.53, 0.54, 0.47. proBNP 174,000. Cepheid viral panel negative. 06/13 Patient seen and examined. Patient denies having chest pain no shortness of breath. She states her appetite is getting better. Patient has been maintained on IV Lasix 40 mg every 12 hours as well as increased amlodipine and added hydralazine for blood pressure control. Blood pressure is now 137/65, heart rate 63, pulse ox 99% on room air. Repeat blood work reveals hemoglobin 9.2. Sodium 134, potassium 4.3, BUN 78 and creatinine 3.58. Patient is followed by nephrology and added SGLT2 inhibitor, iron studies, low-salt diet, fluid restriction. 06/14 Patient seen and examined. Patient states that she is feeling well. No new complaints. No chest pain. Blood pressure 159/71, heart rate 63, pulse ox 94% on room air. Repeat blood work reveals hemoglobin 9.2. BUN 73 creatinine 3.59, sodium 135 and potassium 3.5, CO2 20. Yesterday, we increased amlodipine to 5 mg twice daily, added hydralazine 75 mg 3 times daily and discontinued IV Lasix with plan to start oral this morning of 40 mg daily. EF came back low and we will plan to discontinue amlodipine. 06/15 Patient's blood pressure continues to be elevated and nephrology has increased hydralazine to 100 mg. No chest pain no shortness of breath patient is anxious to go home today. Heart rate is running in the 70s and 80s, pulse ox 94% on room air. Blood pressure 151/83. Repeat blood work reveals sodium 135, BUN 66 and creatinine 3.09. Physical examination: Gen: This is a thin cachectic 64-year-old female appears to be in no acute respiratory distress. VS: reviewed HEENT: Head is atraumatic, normocephalic. Pupils equal, round. Sclerae is anicteric. NECK: Supple. No JVD. LUNGS: Clear to auscultation. No wheezes or rhonchi. No intercostal retractions. HEART: Regular rate and rhythm. No murmur. ABDOMEN: Soft No tenderness. EXTREMITIES: Trace bilateral lower extremity edema. No calf tenderness. NEUROLOGICAL: Patient is awake, alert. Assessment: Acute kidney injury Hyperkalemia Metabolic acidosis secondary to ESPERANZA Elevated troponin but flat with nonischemic pattern Hypertensive urgency/emergency History of coronary artery disease Nonischemic cardiomyopathy with current EF of 20 to 25% Moderate pulmonary hypertension Moderate pericardial effusion Valvular heart disease with mild mitral regurgitation and moderate tricuspid regurgitation Hypertension Dyslipidemia Chronic anemia Chronic kidney disease stage IIIb Tobacco use and dependence Anemia Plan: Continue patient's home cardiac medications with the following changes Discontinue amlodipine due to cardiomyopathy Nephrology has increased hydralazine to 100 mg 3 times daily Continue Lasix oral 40 mg daily Continue patient on Coreg 6.25 mg twice daily Patient is cleared for discharge from cardiology will follow-up with Dr. Vaughn in 1 week. Nurse practitioner note has been reviewed, I agree with documented findings and plan of care. Patient was seen and examined. Objective - Vital Signs Vital signs: Vital Signs Temp 98.0 F 06/15/24 10:33 Pulse 79 06/15/24 10:33 Resp 16 06/15/24 10:33 BP 151/83 06/15/24 10:33 Pulse Ox 94 L 06/15/24 10:33 FiO2 Intake & Output 06/14/24 06/15/24 06/15/24 18:59 06:59 18:59 Intake Total 240 8 Balance 240 8 Weight 62.5 kg Intake: IV 8 Invasive Line 2 8 Oral 240 Other: Voiding Method Indwelling Catheter Bedside Commode Bedside Commode # Voids 1 2 - Labs CBC & Chem 7: 06/14/24 05:38 06/15/24 05:55 Labs: Abnormal Lab Results - Last 24 Hours (Table) 06/15/24 Range/Units 05:55 Sodium 135 L (137-145) mmol/L Carbon Dioxide 20 L (22-30) mmol/L BUN 66 H (7-17) mg/dL Creatinine 3.09 H (0.52-1.04) mg/dL Glucose 112 H (74-99) mg/dL Microbiology - Last 24 Hours (Table) 06/11/24 17:00 Blood Culture - Preliminary Blood
[2024-06-15] MEDS: hydrALAZINE HCL 50 MG TAB PO SCH (12:19)
[2024-06-15] MEDS ORDERED: DOCUSATE 100 MG CAP PO SCH (21:00)
== END 2024-06-15 12:59 | disposition home health service (06) | DRG 291 ==
LOC: EC 15:05 → 3SCARD 18:00
PROVIDERS: ADMIT Hospitalist; ATTEND Hospitalist
DX: I13.0 Hypertensive heart and chronic kidney disease with heart failure and stage 1 through stage 4 chronic kidney disease, or unspecified chronic kidney disease (principal); I50.21 Acute systolic (congestive) heart failure; J96.01 Acute respiratory failure with hypoxia; N17.0 Acute kidney failure with tubular necrosis; Z11.52 Encounter for screening for COVID-19; I31.39 Other pericardial effusion (noninflammatory); E44.0 Moderate protein-calorie malnutrition; R18.8 Other ascites; E87.20 Acidosis, unspecified; D63.1 Anemia in chronic kidney disease; I16.1 Hypertensive emergency; J44.9 Chronic obstructive pulmonary disease, unspecified; I27.20 Pulmonary hypertension, unspecified; N18.32 Chronic kidney disease, stage 3b; F31.9 Bipolar disorder, unspecified; I08.1 Rheumatic disorders of both mitral and tricuspid valves; I42.8 Other cardiomyopathies; Z71.6 Tobacco abuse counseling; Z68.21 Body mass index [BMI] 21.0-21.9, adult; E78.5 Hyperlipidemia, unspecified; E87.5 Hyperkalemia; F17.210 Nicotine dependence, cigarettes, uncomplicated; E61.1 Iron deficiency; I25.10 Atherosclerotic heart disease of native coronary artery without angina pectoris; Z79.899 Other long term (current) drug therapy; R79.89 Other specified abnormal findings of blood chemistry; M25.511 Pain in right shoulder; Z87.01 Personal history of pneumonia (recurrent)
CPT/HCPCS: 36415; 71046; 76770; 78582; 80048; 80053; 80306; 80320; 81001; 82140; 82550; 82607; 82728; 83540; 83550; 83605; 83690; 83735; 83880; 84100; 84484; 85025; 85379; 85610; 85730; 87040; 87636; 93005; 93306; 93970; 94640; 96365; 96366; 96368; 96375; 96376; 99291

== ENCOUNTER 2024-10-30 16:46 | Emergency (ER) | payer MEDICARE ==
[2024-10-30 17:28] LABS: Basophils # (A) 0.18 10*3/uL (0.00-0.10); Eosinophils # (A) 0.15 10*3/uL (0.04-0.35); Eosinophils % (A) 1.7 %; HCT 28.7 % (37.2-46.3); HGB 9.5 g/dL (12.0-15.0); Lymphocytes # (A) 1.43 10*3/uL (0.90-5.00); Lymphocytes % (A) 15.9 %; MCH 29.1 pg (27.0-32.0); MCHC 33.1 g/dL (32.0-37.0); MCV 87.8 fL (80.0-97.0); Mean Platelet Volume 8.9 fL (9.5-12.2); Monocytes # (A) 0.72 10*3/uL (0.20-1.00); Neutrophils # (A) 6.45 10*3/uL (1.80-7.70); Neutrophils % (A) 71.8 %; Platelet Count 287 10*3/uL (140-440); RBC 3.27 10*6/uL (4.10-5.20); RDW 19.3 % (11.5-14.5); WBC 8.98 10*3/uL (4.50-10.00)
[2024-10-30] MEDS: IPRATROPIUM-ALBUTEROL 3 ML NEB INHALATION STA ×2 (17:37→19:51)
--- NOTE | 2024-10-30 17:37 | ED ---
SOB HPI - General Chief Complaint: Shortness of Breath Stated Complaint: SOB Time Seen by Provider: 10/30/24 16:50 Source: patient, EMS, RN notes reviewed, old records reviewed Mode of arrival: EMS Limitations: no limitations - History of Present Illness Initial Comments: This is a 64 female to the ER for evaluation today. This patient [place] for evaluation of shortness of breath severe shortness of breath with recent anxiety and anxiety that is currently significant related to of daughter being 1 year ago all but also having persistent shortness of breath despite breathing treatments at home. No fevers no chest pain MD Complaint: shortness of breath, cough, "asthma attack", anxiety -: days(s) Severity: severe Severity scale (1-10): 8 Consistency: constant Improves With: nothing Worsens With: nothing Known History Of: COPD, congestive heart failure Context: recent URI, recent illness Associated Symptoms: denies other symptoms - Related Data Home Medications Medication Instructions Recorded Confirmed traZODone HCL [Desyrel] 50 mg PO HS PRN 05/07/24 06/18/24 Previous Rx's Medication Instructions Recorded Acetaminophen Tab [Tylenol] 650 mg PO Q6HR PRN tab 06/15/24 Dapagliflozin Propanediol [Farxiga] 5 mg PO DAILY #30 tab 06/15/24 Furosemide [Lasix] 40 mg PO DAILY #30 tab 06/15/24 Sodium Bicarbonate Tab 650 mg PO BID #60 tab 06/15/24 hydrALAZINE HCL [Apresoline] 100 mg PO TID 30 Days #180 tab 06/15/24 Docusate [Colace] 100 mg PO BID #10 cap 06/22/24 NIFEdipine [Procardia] 30 mg PO TID #90 cap 06/22/24 carvediloL [Coreg] 12.5 mg PO BID #60 tablet 06/22/24 Albuterol Nebulized [Ventolin 2.5 mg INHALATION Q4H PRN #25 each 10/30/24 Nebulized] Albuterol Sulfate [Proair 1 puff INHALATION TID #1 each 10/30/24 Digihaler] Furosemide [Lasix] 80 mg PO Q12HR #6 tablet 10/30/24 predniSONE 50 mg PO DAILY #5 tab 10/30/24 Allergies Allergy/AdvReac Type Severity Reaction Status Date / Time No Known Allergies Allergy Verified 06/18/24 21:09 Review of Systems ROS Statement: Those systems with pertinent positive or pertinent negative responses have been documented in the HPI. ROS Other: All systems not noted in ROS Statement are negative. Past Medical History Past Medical History: Heart Failure, COPD, Pneumonia Additional Past Medical History / Comment(s): Alcohol Dependence, ETOH withdrawal seizures History of Any Multi-Drug Resistant Organisms: None Reported Past Surgical History: Section Past Anesthesia/Blood Transfusion Reactions: No Reported Reaction Past Psychological History: No Psychological Hx Reported Smoking Status: Current every day smoker Past Alcohol Use History: Occasional Additional Past Alcohol Use History / Comment(s): She lives at home with her . smokes1.5 packs of cigerettes a day last alcohic drink 05/09/25. Past Drug Use History: None Reported - Past Family History Mother Additional Family Medical History / Comment(s): Mother is alive at age 91 with no major medical problems. Father Additional Family Medical History / Comment(s): Father in his 70s from non- A non-B hepatitis Sister(s) Additional Family Medical History / Comment(s): She has one sister with no major medical problems. Patient does not have any brothers. Daughter(s) Additional Family Medical History / Comment(s): Ptients daughter overdosed and in July 2023. Patient does not have any sons. General Exam Limitations: no limitations General appearance: alert, in no apparent distress, anxious Head exam: Present: atraumatic, normocephalic, normal inspection Eye exam: Present: normal appearance, PERRL, EOMI. Absent: scleral icterus, conjunctival injection, periorbital swelling ENT exam: Present: normal exam, mucous membranes moist Neck exam: Present: normal inspection. Absent: tenderness, meningismus, lymphadenopathy Respiratory exam: Present: wheezes, decreased breath sounds, prolonged expiratory. Absent: respiratory distress, rales, rhonchi, stridor Cardiovascular Exam: Present: regular rate, normal rhythm, normal heart sounds. Absent: systolic murmur, diastolic murmur, rubs, gallop, clicks GI/Abdominal exam: Present: soft, normal bowel sounds. Absent: distended, tenderness, guarding, rebound, rigid Extremities exam: Present: normal inspection, full ROM, normal capillary refill. Absent: tenderness, pedal edema, joint swelling, calf tenderness Back exam: Present: normal inspection Neurological exam: Present: alert, oriented X3, CN II-XII intact Psychiatric exam: Present: normal affect, normal mood Skin exam: Present: warm, dry, intact, normal color. Absent: rash Course Vital Signs 10/30/24 10/30/24 10/30/24 16:52 17:37 19:52 Temperature 98.0 F Pulse Rate 82 72 84 Respiratory 22 Rate Blood Pressure 173/100 O2 Sat by Pulse 96 Oximetry 10/30/24 10/30/24 20:01 20:06 Temperature 98.2 F Pulse Rate 80 87 Respiratory 18 Rate Blood Pressure 183/98 O2 Sat by Pulse 97 Oximetry - Reevaluation(s) Reevaluation #1: 10/30/24 20:10 Medical records reviewed Reevaluation #2: 10/30/24 20:10 Patient symptoms dramatically improved Reevaluation #3: 10/30/24 20:10 Patient informed of results questions answered Reevaluation #4: Was pt. sent in by a medical professional or institution (, PA, [facility] [facility], urgent care, hospital, or assisted...) When possible be specific @ -no Did you speak to anyone other than the patient for history (EMS, parent, family, police, friend...)? What history was obtained from this source @ -no Did you review nursing and triage notes (agree or disagree)? Why? @ -agree Are old charts reviewed (outside hosp., previous admission, EMS record, old EKG, old radiological studies, urgent care reports/EKG's, assisted records)? Report findings @ -yes Differential Diagnosis (chest pain, altered mental status, abdominal pain women, abdominal pain men, vaginal bleeding, weakness, fever, dyspnea, syncope, headache, dizziness, GI bleed, back pain, seizure, CVA, palpatations, mental health, musculoskeletal)? @ -prior EKG interpreted by me (3pts min.). @ -yes X-rays interpreted by me (1pt min.). @ -yes negative for acute disease CT interpreted by me (1pt min.). @ -no U/S interpreted by me (1pt. min.). @ -no What testing was considered but not performed or refused? (CT, X-rays, U/S, labs)? Why? @ -none What meds were considered but not given or refused? Why? @ -none Did you discuss the management of the patient with other professionals (professionals i.e. , PA, [facility] [facility], lab, RT, psych nurse, adoption social worker, natural gas shothole driller, teacher, accounts officer, mental health case manager)? Give summary @ -no Was smoking cessation discussed for >3mins.? @ -no Was critical care preformed (if so, how long)? @ -no Were there social determinants of health that impacted care today? How? (Homelessness, low income, unemployed, alcoholism, drug addiction, transportation, low edu. Level, literacy, decrease access to med. care, detention, rehab)? @ -none Was there de-escalation of care discussed even if they declined (Discuss DNR or withdrawal of care, Hospice)? DNR status @ -no What co-morbidities impacted this encounter? (DM, HTN, Smoking, COPD, CAD, Cancer, CVA, ARF, Chemo, Hep., AIDS, mental health diagnosis, sleep apnea, morbid obesity)? @ -none Was patient admitted / discharged? Hospital course, mention meds given and route, prescriptions, significant lab abnormalities, going to OR and other pertinent info. @ - Undiagnosed new problem with uncertain prognosis? @ -no Drug Therapy requiring intensive monitoring for toxicity (Heparin, Nitro, Insulin, Cardizem)? @ -no Were any procedures done? @ -no Diagnosis/symptom? @ - Acute, or Chronic, or Acute on Chronic? @ -Acute Uncomplicated (without systemic symptoms) or Complicated (systemic symptoms)? @ -Complicated Side effects of treatment? @ -no Exacerbation, Progression, or Severe Exacerbation? @ -exacerbation Poses a threat to life or bodily function? How? (Chest pain, USA, DC, pneumonia, PE, COPD, DKA, ARF, appy, cholecystitis, CVA, Diverticulitis, Homicidal, Suicidal, threat to staff... and all critical care pts) @ -yes Reevaluation #5: Differential Dyspnea: Coronary syndrome, arrhythmia, tamponade, asthma, COPD, pulmonary embolism, pneumonia, pneumothorax, pulmonary effusion, anaphylaxis, diabetic ketoacidosis, flailed chest, pulmonary contusion, diaphragmatic rupture, anemia, neuro muscular, this is not meant to be an all-inclusive list. Medical Decision Making - Medical Decision Making 64 female much improved after breathing treatments. COPD and CHF combination with anxiety. Patient given medications upon discharge as she refuses to stay in the hospital - Lab Data Result diagrams: 10/30/24 17:23 10/30/24 17:23 Lab Results 10/30/24 10/30/24 10/30/24 Range/Units 17:23 17:23 17:23 WBC 8.98 (4.50-10.00) 10*3/uL RBC 3.27 L (4.10-5.20) 10*6/uL Hgb 9.5 L (12.0-15.0) g/dL Hct 28.7 L (37.2-46.3) % MCV 87.8 (80.0-97.0) fL MCH 29.1 (27.0-32.0) pg MCHC 33.1 (32.0-37.0) g/dL Plt Count 287 (140-440) 10*3/uL MPV 8.9 L (9.5-12.2) fL Immature Gran % (Auto) 0.6 % Neutrophils % 71.8 % Lymphocytes % 15.9 % Monocytes % 8.0 % Eosinophils % 1.7 % Basophils % 2.0 % Immature Gran # 0.05 H (0.00-0.04) 10*3/uL Neutrophils # 6.45 (1.80-7.70) 10*3/uL Lymphocytes # 1.43 (0.90-5.00) 10*3/uL Monocytes # 0.72 (0.20-1.00) 10*3/uL Eosinophils # 0.15 (0.04-0.35) 10*3/uL Basophils # 0.18 H (0.00-0.10) 10*3/uL PT 12.0 (10.0-12.5) sec INR 1.1 (<1.2) APTT 24.3 (22.0-30.0) sec Sodium 142 (137-145) mmol/L Potassium 4.1 (3.5-5.1) mmol/L Chloride 111 H (98-107) mmol/L Carbon Dioxide 18 L (22-30) mmol/L Anion Gap 13 mmol/L BUN 24 H (7-17) mg/dL Creatinine 2.35 H (0.52-1.04) mg/dL Est GFR (CKD-EPI)AfAm 24 (>60 ml/min/1.73 sqM) Est GFR (CKD-EPI)NonAf 21 (>60 ml/min/1.73 sqM) Glucose 88 (74-99) mg/dL Calcium 9.5 (8.4-10.2) mg/dL Magnesium 2.3 (1.6-2.3) mg/dL Total Bilirubin 0.6 (0.2-1.3) mg/dL AST 34 (14-36) U/L ALT 11 (4-34) U/L Alkaline Phosphatase 88 (38-126) U/L Troponin I (0.000-0.034) ng/mL NT-Pro-B Natriuret Pep 92975 pg/mL Total Protein 6.9 (6.3-8.2) g/dL Albumin 4.1 (3.5-5.0) g/dL 10/30/24 Range/Units 17:23 WBC (4.50-10.00) 10*3/uL RBC (4.10-5.20) 10*6/uL Hgb (12.0-15.0) g/dL Hct (37.2-46.3) % MCV (80.0-97.0) fL MCH (27.0-32.0) pg MCHC (32.0-37.0) g/dL Plt Count (140-440) 10*3/uL MPV (9.5-12.2) fL Immature Gran % (Auto) % Neutrophils % % Lymphocytes % % Monocytes % % Eosinophils % % Basophils % % Immature Gran # (0.00-0.04) 10*3/uL Neutrophils # (1.80-7.70) 10*3/uL Lymphocytes # (0.90-5.00) 10*3/uL Monocytes # (0.20-1.00) 10*3/uL Eosinophils # (0.04-0.35) 10*3/uL Basophils # (0.00-0.10) 10*3/uL PT (10.0-12.5) sec INR (<1.2) APTT (22.0-30.0) sec Sodium (137-145) mmol/L Potassium (3.5-5.1) mmol/L Chloride (98-107) mmol/L Carbon Dioxide (22-30) mmol/L Anion Gap mmol/L BUN (7-17) mg/dL Creatinine (0.52-1.04) mg/dL Est GFR (CKD-EPI)AfAm (>60 ml/min/1.73 sqM) Est GFR (CKD-EPI)NonAf (>60 ml/min/1.73 sqM) Glucose (74-99) mg/dL Calcium (8.4-10.2) mg/dL Magnesium (1.6-2.3) mg/dL Total Bilirubin (0.2-1.3) mg/dL AST (14-36) U/L ALT (4-34) U/L Alkaline Phosphatase (38-126) U/L Troponin I 0.031 (0.000-0.034) ng/mL NT-Pro-B Natriuret Pep pg/mL Total Protein (6.3-8.2) g/dL Albumin (3.5-5.0) g/dL - EKG Data -: EKG Interpreted by Me (EKG sinus 76 MA 174 QRS 100 QTc 434) - Radiology Data Radiology results: report reviewed (Chest x-ray is positive for CHF), image reviewed Disposition Clinical Impression: Weakness, Dyspnea, CHF exacerbation, Acute exacerbation of chronic obstructive pulmonary disease Disposition: HOME SELF-CARE Condition: Fair Instructions (If sedation given, give patient instructions): Heart Failure (ER), Acute Bronchitis (ED), Chronic Bronchitis (ED) Prescriptions: Furosemide [Lasix] 80 mg PO Q12HR #6 tablet predniSONE 50 mg PO DAILY #5 tab Albuterol Sulfate [Proair Digihaler] 1 puff INHALATION TID #1 each Albuterol Nebulized [Ventolin Nebulized] 2.5 mg INHALATION Q4H PRN #25 each PRN Reason: Shortness Of Breath Is patient prescribed a controlled substance at d/c from ED?: No Referrals: Carlos Eduardo Ellis MD [Primary Care Provider] - 1-2 days Time of Disposition: 19:35
[2024-10-30] MEDS: LORazepam 1 MG/0.5 ML VIAL IV STA (17:49)
[2024-10-30] MEDS: methylPREDNISolone SOD SUCCI 125 MG/2 ML VIAL IV STA (17:49)
[2024-10-30 17:58] LABS: ALT 11 U/L (4-34); African American GFR (CKD) 24 (>60 ml/min/1.73 sqM); Albumin 4.1 g/dL (3.5-5.0); Anion Gap 13 mmol/L; Blood Urea Nitrogen 24 mg/dL (7-17); Calcium 9.5 mg/dL (8.4-10.2); Carbon Dioxide 18 mmol/L (22-30); Chloride 111 mmol/L (98-107); Glucose 88 mg/dL (74-99); INR 1.1 (<1.2); Non-African American GFR(CKD) 21 (>60 ml/min/1.73 sqM); Partial Thromboplastin Time 24.3 sec (22.0-30.0); Sodium 142 mmol/L (137-145); Total Bilirubin 0.6 mg/dL (0.2-1.3); Total Protein 6.9 g/dL (6.3-8.2)
[2024-10-30 17:59] LABS: AST 34 U/L (14-36); Alkaline Phosphatase 88 U/L (38-126); Magnesium 2.3 mg/dL (1.6-2.3); Potassium 4.1 mmol/L (3.5-5.1)
[2024-10-30 18:06] LABS: NT-Pro-B-Type Natriuretic Pept 15300 pg/mL
--- NOTE | 2024-10-30 19:04 | XR ---
EXAMINATION TYPE: XR chest 1V portable DATE OF EXAM: 10/30/2024 6:16 PM COMPARISON: 06/19/2024 CLINICAL INDICATION: Female, 64 years old with history of sob, TECHNIQUE: XR chest 1V portable view(s) obtained. FINDINGS: The heart size is enlarged. The pulmonary vasculature is prominent. Mild scattered increased lung markings are present. Correlate for pulmonary edema. IMPRESSION: 1. Clinical correlation recommended for congestive heart failure. [facility], , 10/30/2024 7:02 PM
[2024-10-30] MEDS ORDERED: ENALAPRILAT 1.25 MG/ML 1 ML VIAL IVP STA (19:45)
[2024-10-30] MEDS ORDERED: DEXAMETHASONE SOD PHOSPHATE 10 MG/ML 1 ML VIAL IVP STA (19:45)
[2024-10-30] MEDS ORDERED: FUROSEMIDE 10 MG/ML 10 ML VIAL IV STA (19:45)
[2024-10-30] MEDS: dexAMETHasone 2 MG TAB PO STA (20:05)
[2024-10-30] MEDS: lisinopriL 20 MG TAB PO STA (20:05)
[2024-10-30] MEDS: FUROSEMIDE 80 MG TAB PO STA (20:05)
[2024-10-30 20:08] VITALS: BP 183/98; PULSE 87; RESP 18; TEMP 98.2
== END 2024-10-30 20:09 | disposition home or self-care (01) ==
LOC: EC 16:46
DX: R53.1 Weakness (principal); J44.1 Chronic obstructive pulmonary disease with (acute) exacerbation; I50.9 Heart failure, unspecified; R06.00 Dyspnea, unspecified; Z63.4 Disappearance and death of family member; F17.200 Nicotine dependence, unspecified, uncomplicated
CPT/HCPCS: 36415; 94640 ×2; 93005; 83880; 80053; 83735; 84484; 85025; 85610; 85730; 71045; 99285; 96374; 96375; J2060; J8540; J2919